=== PATIENT | female | born 1950 | race Caucasian/White ===

== ENCOUNTER 2021-01-22 11:14 | Outpatient (REF) | payer MEDICARE, OTHER, SELFPAY ==
--- NOTE | 2021-01-27 10:50 | MHC.AU.ANO ---
Adult Audiological Evaluation Date of Visit: 01/22/21 Reason for Appointment: Patient has been noticing an increase in hearing difficulty at home and with family/friends. History of ear infections as a child and history of tympanic membrane rupture. History of sinus surgery by Dr. Henderson, with cartilage graft taken from right pinna. Has hearing been tested previously?: Yes Previous Hearing Test Results: At this clinic on 10/04/2018- Borderline-normal thresholds from 250-2000 Hz, sloping to moderate high frequency sensorineural hearing loss bilaterally. Medical History: Medical History: History of bladder cancer with chemotherapy treatment approximately 5 years ago. Otoscopy: Right Ear: Clear canal Left Ear: Clear canal Tympanometry: Tympanometry performed due to: To assess integrity of the middle ear system Right Ear: Normal Middle Ear System (Type A) Left Ear: Reduced Middle Ear Compliance (Type As) Hearing Evaluation: Transducer(s) Used: Insert Earphones Method: Conventional Audiometry Stimuli Used: Pure Tones Right Ear: Description of Hearing: Borderline/Normal from 250-2000 Hz, sloping to moderately-severe sensorineural hearing loss Left Ear: Description of Hearing: Borderline/Normal from 250-1000 Hz, sloping to moderately-severe sensorineural hearing loss Speech Recognition Threshold (SRT): Method Used: Recorded Lists Stimuli Used: Spondee Words Right Ear: 25 dBHL Left Ear: 25 dBHL Word Discrimination: Method: Recorded Lists Word Lists Used: NU-6 Right Ear: 96% at 65 dBHL Left Ear: 100% at 65 dBHL Most Comfortable Level (MCL): Right Ear: 65 dBHL Left Ear: 65 dBHL Comparison: Compared to the most recent evaluation: Decrease in the left ear at 2000 Hz; otherwise, hearing is mostly stable. Recommendations: Audiological re-evaluation in one year. At patient's previous visit in 2019, she did not feel that she was ready for hearing aids. Today, she feels she may be ready, as the hearing loss has started to have more of an impact on daily life. A demo pair of Phonak Audeo Trial K77-327H (#[id number], [id number]) was placed on the patient. She did notice an improvement, but was unsure how well they would be at home. She inquired if she could take the hearing aids home for the weekend to help decide. Patient signed a loaner form and an appointment was scheduled for 01/28/2021 to return the loaners and discuss whether or not she would like to pursue hearing aids. Diagnosis: Primary Diagnosis: H90.3 Bilateral Sensorineural Hearing Loss Services Performed: Comprehensive Audiological Evaluation (CPT 79274), Tympanometry (CPT 61613) Signature: Provider: Khushboo Hardy, CCC-A
== END 2021-01-22 11:15 | disposition home or self-care (01) ==
LOC: HO.SH 11:14
PROVIDERS: Visit Provider Nurse Practitioner Family
DX: H90.3 Sensorineural hearing loss, bilateral (principal)
CPT/HCPCS: 92557; 92567

== ENCOUNTER 2021-01-28 10:52 | Outpatient (REF) | payer SELFPAY ==
--- NOTE | 2021-02-01 08:49 | MHC.AU.HFU ---
Hearing Instrument Follow-Up- Binaural Date of Visit: 01/28/21 Follow-Up Summary: Patient arrived to discuss how the hearing aid trial went at home, and to decide if she is ready for amplification. Patient reports that she had some difficulty putting them in, and they did not seem to want to go in all the way. She also could not recall how to change the battery. As a result, she had not been able to wear them much during the trial. She asked if we could address those concerns, and take them home for a few more days. Places longer, size 2 receivers on the instruments and changed to cap domes. The receivers were able to go deeper into her ears. Discussed that if she decides to pursue her own pair of hearing aids, I would likely want to try a custom cShell on the end, as her canals are narrow and have a sharp bend. Reviewed changing the battery and how to turn the hearing aids on/off. Patient will take them home for a few more days. Recommendations: Recommendations: A follow-up was scheduled for 02/04/21. Diagnosis Code(s): Primary Diagnosis: H90.3 Bilateral Sensorineural Hearing Loss Signature: Provider: Khushboo Hardy, CCC-A
== END 2021-01-28 10:53 | disposition home or self-care (01) ==
LOC: HO.HAP 10:52
PROVIDERS: Visit Provider Nurse Practitioner Family
DX: Z13.89 Encounter for screening for other disorder (principal)

== ENCOUNTER 2021-02-04 10:49 | Outpatient (REF) | payer SELFPAY ==
--- NOTE | 2021-02-05 08:47 | MHC.AU.HAS ---
Hearing Aid Evaluation Date of Visit: 02/04/21 Historical Information: Description of Hearing: Normal from 250-1000 Hz, sloping to moderately-severe sensorineural hearing loss bilaterally Summary: Patient reports that after the adjustments/review at the last appointment, she has been doing very well with the demo hearing aids. She notices a big difference when she is not wearing them. She feels she is ready for amplification. Hearing aid options were discussed. Impressions were taken for cShells, as she has very narrow canals. If patient does not like the cShells, we could go back to size 2M receivers with cap domes. Hearing Aid Prescription: Based on the individual?s shared listening needs, communication environments, dexterity, desire for connectivity, and personal preferences, the following prescription for amplification has been made: Right ear: Hand Hide Stretcher: OptiNose Model: Audeo P50-312 Battery Size: 312 Color: P1 Clay Dry Press Operator: 1M Type of Mold: cShell Left ear: Hand Hide Stretcher: Phonak Model: Audeo P50-312 Battery Size: 312 Color: P1 Clay Dry Press Operator: 1M Type of Mold: cShell Action Taken/Action Needed: Earmold Impressions Taken Patient will continue to borrow the loaner hearing aids until her fitting. She will be having surgery on her left wrist soon. She would like to wait until she has healed a bit more, in late February/early March for the fitting. The order will be sent out in mid-February. Primary Diagnosis: H90.3 Bilateral Sensorineural Hearing Loss Signature: Provider: Khushboo Hardy, IAN-A
== END 2021-02-04 10:50 | disposition home or self-care (01) ==
LOC: HO.HAP 10:49
PROVIDERS: Visit Provider Nurse Practitioner Family
DX: Z46.1 Encounter for fitting and adjustment of hearing aid (principal); H90.3 Sensorineural hearing loss, bilateral
CPT/HCPCS: 92591

== ENCOUNTER 2021-02-25 14:10 | Outpatient (REF) | payer SELFPAY | END 2021-02-25 14:11 | disposition home or self-care (01) | LOC: HO.HAP 14:10 | PROVIDERS: Visit Provider Nurse Practitioner Family | DX: Z13.89 Encounter for screening for other disorder (principal) ==

== ENCOUNTER 2021-03-23 12:59 | Outpatient (REF) | payer SELFPAY | END 2021-03-23 13:00 | disposition home or self-care (01) | LOC: HO.HAP 12:59 | PROVIDERS: Visit Provider Nurse Practitioner Family | DX: Z13.89 Encounter for screening for other disorder (principal) ==

== ENCOUNTER 2021-04-01 08:13 | Outpatient (REF) | payer OTHER, MEDICARE, SELFPAY ==
--- NOTE | ~2021-04-01 | MM_ITS ---
EXAMINATION: MM SCREENING DIGITAL BREAST TOMOSYNTHESIS, BILATERAL CLINICAL INFORMATION: Screening. Asymptomatic. The lifetime risk of breast cancer based on the Tyrer-Cuzick Model is 4%. COMPARISON: Mammography: 03/05/2020, 02/28/2019, 02/09/2018 TECHNIQUE: Digital breast tomosynthesis is performed in both the craniocaudal and mediolateral oblique views along with computer-aided detection (CAD). Synthesized 2D images are generated from the tomosynthesis. Additional right CC view is provided. FINDINGS: There are scattered areas of fibroglandular density (ACR BI-RADS breast composition Category b). There are no significant masses, abnormal calcifications, or other abnormalities. Parenchymal pattern is similar to prior studies. The axilla and skin contours are unremarkable MM/MM tomosynthesis screening BI IMPRESSION: No mammographic evidence of malignancy. ASSESSMENT: BI-RADS 1: Negative RECOMMENDATION: Routine annual mammography screening. This patient's information was entered into a reminder system with a target due date for their next mammogram.
== END 2021-04-01 08:14 | disposition home or self-care (01) ==
LOC: HO.MAMMO 08:13
PROVIDERS: Visit Provider Nurse Practitioner Family
DX: Z12.31 Encounter for screening mammogram for malignant neoplasm of breast (principal)
CPT/HCPCS: 77063; 77067

== ENCOUNTER 2021-04-01 13:33 | Outpatient (REF) | payer SELFPAY | END 2021-04-01 13:34 | disposition home or self-care (01) | LOC: HO.HAP 13:33 | PROVIDERS: Visit Provider Nurse Practitioner Family | DX: Z13.89 Encounter for screening for other disorder (principal) ==

== ENCOUNTER 2021-04-09 08:37 | Outpatient (REF) | payer SELFPAY ==
--- NOTE | 2021-04-09 11:05 | MHC.AU.HFA ---
Hearing Instrument Fitting- Adult- Binaural Date of Visit: 04/09/21 Hearing Instruments Dispensed: Right Ear: Enrollment Management Manager: GoVoluntrak Model: Kiwii Capitaleo P50-312 Serial Number: [id number] Repair Warranty: 07/04/2024 Loss and Damage Warranty: 07/04/2024 Service Plan: 07/04/2024 Battery Size: 312 Color: P1 In Process Inspector: 2S Type of Dome: Cap Dome Type of Mold: Tried cShell #[id number] (Warranty 08/05/2021), but patient preferred cap dome Type of Wax Guard: CeruShield Left Ear: Enrollment Management Manager: Phonak Model: Kiwii Capitaleo P50-312 Serial Number: [id number] Repair Warranty: 07/04/2021 Loss and Damage Warranty: 07/04/2021 Service Plan: 07/04/2021 Battery Size: 312 Color: P1 In Process Inspector: 2S Type of Dome: Cap Dome Type of Mold: Tried cShell #[id number] (Warranty 08/05/2021), but patient preferred cap dome Type of Wax Guard: CeruShield Summary of Fitting: First tried cShells. The cShells were too bulky, and did not go far enough into the ear. Patient reported they felt like they were going to fall out. Switched back to the cap domes. Replaced receivers with size 2 S, instead of M, since they are narrower. This allowed the receivers to go deeper into the narrow canals. Feedback accounting office manager run. Verifit performed and levels adjusted to better reach targets. Target gain is at 100%. Patient was pleased with the sound of the instruments. Hearing aid care and maintenance were discussed and demonstrated. Patient does not want the hearing aids paired to her phone at this time. Recommendations: A hearing instrument follow-up was scheduled. Please call our clinic with any questions or concerns. Diagnosis Code(s): Primary Diagnosis: H90.3 Bilateral Sensorineural Hearing Loss Signature: Provider: Khushboo Hardy, IAN-A
== END 2021-04-09 08:38 | disposition home or self-care (01) ==
LOC: HO.HAP 08:37
PROVIDERS: Visit Provider Nurse Practitioner Family
DX: Z46.1 Encounter for fitting and adjustment of hearing aid (principal); H90.3 Sensorineural hearing loss, bilateral
CPT/HCPCS: V5261

== ENCOUNTER 2021-04-26 08:17 | Outpatient (REF) | payer SELFPAY ==
--- NOTE | 2021-04-26 13:48 | MHC.AU.HFU ---
Hearing Instrument Follow-Up- Binaural Date of Visit: 04/26/21 Right Ear: Assistant Corporation Counsel: Phonak Model: Audeo P50-312 Serial Number: [id number] Repair Warranty: 07/04/2024 Loss and Damage Warranty: 07/04/2024 Service Plan: 07/04/2024 Battery Size: 312 Color: P1 Venue Attendant: 2S Type of Dome: Cap Dome Type of Mold: Tried cShell #[id number] (Warranty 08/05/2021), but patient preferred cap dome Type of Wax Guard: CeruShield Dispensed By: [facility] Date of Fittin04/09/2021 Left Ear: Assistant Corporation Counsel: Phonak Model: Audeo P50-312 Serial Number: [id number] Repair Warranty: 07/04/2021 Loss and Damage Warranty: 07/04/2021 Service Plan: 07/04/2021 Battery Size: 312 Color: P1 Venue Attendant: 2S Type of Dome: Cap Dome Type of Mold: Tried cShell #[id number] (Warranty 08/05/2021), but patient preferred cap dome Type of Wax Guard: CeruShield Dispensed By: [facility] Date of Fittin04/09/2021 Follow-Up Summary: Patient arrived for hearing aid follow-up. She reports that she was unable to change the wax guard in the left grain receiver recently. Upon inspection, the wax guard was out of alignment, and could not be picked up with the CeruShield disk. Used a tool to remove the wax guard and replaced with a new one. Patient reports that when she takes the hearing aids out at the end of the day, she does notice a difference; however, when she is wearing them throughout the day she does not feel they are loud enough. Overall gain raised to 110%. High frequency gain raised an additional 2 steps. Patient was pleased with the changes. Recommendations: Hearing instrument follow-up or maintenance as needed. Please contact our clinic with any questions or concerns. Diagnosis Code(s): Primary Diagnosis: H90.3 Bilateral Sensorineural Hearing Loss Signature: Provider: Khushboo Hardy, [facility]
== END 2021-04-26 08:18 | disposition home or self-care (01) ==
LOC: HO.HAP 08:17
PROVIDERS: Visit Provider Nurse Practitioner Family
DX: Z13.89 Encounter for screening for other disorder (principal)

== ENCOUNTER 2021-10-13 08:20 | Outpatient (REF) | payer SELFPAY | END 2021-10-13 08:21 | disposition home or self-care (01) | LOC: HO.HAP 08:20 | PROVIDERS: Visit Provider Nurse Practitioner Family | DX: Z13.89 Encounter for screening for other disorder (principal) ==

== ENCOUNTER 2021-12-01 16:30 | Outpatient (REF) | payer SELFPAY | END 2021-12-01 16:31 | disposition home or self-care (01) | LOC: HO.HAP 16:30 | PROVIDERS: Visit Provider Nurse Practitioner Family | DX: Z13.89 Encounter for screening for other disorder (principal) ==

== ENCOUNTER 2021-12-03 08:12 | Outpatient (REF) | payer SELFPAY | END 2021-12-03 08:13 | disposition home or self-care (01) | LOC: HO.HAP 08:12 | PROVIDERS: Visit Provider Nurse Practitioner Family | DX: Z13.89 Encounter for screening for other disorder (principal) ==

== ENCOUNTER 2022-04-07 08:06 | Outpatient (REF) | payer OTHER, SELFPAY ==
--- NOTE | ~2022-04-07 | MM_ITS ---
EXAMINATION: MM SCREENING DIGITAL BREAST TOMOSYNTHESIS, BILATERAL CLINICAL INFORMATION: Screening. Asymptomatic. The lifetime risk of breast cancer based on the Tyrer-Cuzick Model is 5%. COMPARISON: Mammography: 04/01/2021, 03/05/2020, 02/28/2019 TECHNIQUE: Digital breast tomosynthesis is performed in both the craniocaudal and mediolateral oblique views along with computer-aided detection (CAD). Synthesized 2D images are generated from the tomosynthesis. Additional left CC view is provided. FINDINGS: There are scattered areas of fibroglandular density (ACR BI-RADS breast composition Category b). There are no significant masses, abnormal calcifications, or other abnormalities. No developing density or architectural abnormality or no significant changes. MM/MM tomosynthesis screening BI IMPRESSION: No mammographic evidence of malignancy. ASSESSMENT: BI-RADS 1: Negative RECOMMENDATION: Routine annual mammography screening. This patient's information was entered into a reminder system with a target due date for their next mammogram.
== END 2022-04-07 08:07 | disposition home or self-care (01) ==
LOC: HO.MAMMO 08:06
PROVIDERS: PCP Nurse Practitioner Family; Visit Provider Nurse Practitioner Family
DX: Z12.31 Encounter for screening mammogram for malignant neoplasm of breast (principal)
CPT/HCPCS: 77063; 77067

== ENCOUNTER 2022-05-06 08:08 | Outpatient (REF) | payer OTHER, SELFPAY ==
[2022-05-06 10:26] LABS: MANUAL DIFF FLAG NO
[2022-05-06 10:49] LABS: Basophils Absolute Auto 0.1 X10*3/uL (0.0-0.2); Basophils Percent Auto 1.5 % (0-2); Eosinophils Absolute Auto 0.3 X10*3/uL (0.0-0.4); Hematocrit 30.7 % (37.0-47.0); Hemoglobin 9.3 g/dl (12.0-16.0); Lymphocytes Absolute Auto 1.4 X10*3/uL (1.2-4.9); Lymphocytes Percent Auto 34.7 % (20-40); Mean Corpuscular HGB Conc 30.3 g/dl (31.0-35.0); Mean Corpuscular Hemoglobin 26.6 pg (27.0-33.0); Monocytes Absolute Auto 0.4 X10*3/uL (0.1-1.2); Monocytes Percent Auto 9.8 % (2-11); Neutrophils Absolute Auto 1.8 x10*3/uL (2.0-8.3); Platelet Count 268 X10*3/uL (160-400); Red Blood Count 3.49 X10*6/uL (4.20-5.50); Red Cell Distribution Width 14.8 % (11.0-16.0); White Blood Count 3.9 X10*3/uL (4.8-10.8)
[2022-05-06 11:12] LABS: Alanine Aminotransferase 21 U/L (0-31); Albumin Level 3.9 g/dL (3.5-5.0); Alkaline Phosphatase 57 U/L (39-117); Anion Gap 13 (12-20); Aspartate Amino Transferase 22 U/L (5-31); Bilirubin Total 0.4 mg/dL (0.0-1.0); Blood Urea Nitrogen 17 mg/dL (9-16); Calcium 8.7 mg/dL (8.4-10.2); Carbon Dioxide 27 mmol/L (22-29); Chloride 106 mmol/L (96-108); Cholesterol 183 mg/dL; Estimated Glomerular Filt Rate 44; Glucose Fasting 89 mg/dL (60-99); HDL Cholesterol 101 mg/dL; Iron 43 mcg/dL (30-160); LDL Cholesterol Calculated 69 mg/dl; Magnesium 2.2 mg/dL (1.6-2.6); Percent Iron Saturation 9 % (15-50); Potassium 4.9 mmol/L (3.3-5.1); Sodium 141 mmol/L (135-145); Total Iron Binding Capacity 455 mcg/dL (228-428); Total Protein 6.4 g/dL (6.5-8.0); Triglycerides 65 mg/dL; Unsaturated Iron Binding 412 ug/dL
[2022-05-06 11:26] LABS: Thyroid Stimulating Hormone 3.54 uIU/mL (0.32-4.0)
[2022-05-06 11:41] LABS: Vitamin B12 316 pg/mL (200-900)
== END 2022-05-06 08:09 | disposition home or self-care (01) ==
LOC: HO.10HDL 08:08
PROVIDERS: Visit Provider Nurse Practitioner Family
DX: R53.83 Other fatigue (principal); D64.9 Anemia, unspecified; I10 Essential (primary) hypertension
CPT/HCPCS: 36415; 80053; 80061; 82607; 83540; 83735; 84443; 85025

== ENCOUNTER 2022-06-30 15:56 | Outpatient (REF) | payer OTHER, SELFPAY ==
[2022-06-30 16:11] LABS: MANUAL DIFF FLAG NO
[2022-06-30 16:25] LABS: Basophils Absolute Auto 0.1 X10*3/uL (0.0-0.2); Basophils Percent Auto 1.3 % (0-2); Eosinophils Absolute Auto 0.2 X10*3/uL (0.0-0.4); Eosinophils Percent Auto 4.7 % (0-4); Hematocrit 30.6 % (37.0-47.0); Hemoglobin 9.7 g/dl (12.0-16.0); Imm Gran Abs Auto 0.01 X10*3/uL (0.00-0.03); Imm Gran Pct Auto 0.3 % (0.0-0.4); Lymphocytes Absolute Auto 1.4 X10*3/uL (1.2-4.9); Lymphocytes Percent Auto 36.5 % (20-40); Mean Corpuscular HGB Conc 31.7 g/dl (31.0-35.0); Mean Corpuscular Hemoglobin 27.3 pg (27.0-33.0); Mean Corpuscular Volume 86.2 fL (80.0-98.0); Mean Platelet Volume 10.1 fL (9.4-12.3); Monocytes Absolute Auto 0.4 X10*3/uL (0.1-1.2); Monocytes Percent Auto 9.1 % (2-11); Neutrophils Absolute Auto 1.9 x10*3/uL (2.0-8.3); Neutrophils Percent Auto 48.1 % (45-73); Platelet Count 274 X10*3/uL (160-400); Red Blood Count 3.55 X10*6/uL (4.20-5.50); Red Cell Distribution Width 14.7 % (11.0-16.0); White Blood Count 3.9 X10*3/uL (4.8-10.8)
[2022-06-30 16:40] LABS: Iron 75 mcg/dL (30-160); Percent Iron Saturation 15 % (15-50); Total Iron Binding Capacity 502 mcg/dL (228-428); Unsaturated Iron Binding 427 ug/dL
== END 2022-06-30 15:57 | disposition home or self-care (01) ==
LOC: HO.LAB 15:56
PROVIDERS: Visit Provider Nurse Practitioner Family
DX: D50.9 Iron deficiency anemia, unspecified (principal)
CPT/HCPCS: 36415; 83540; 85025

== ENCOUNTER 2022-08-19 11:07 | Outpatient (REF) | payer SELFPAY | END 2022-08-19 11:08 | disposition home or self-care (01) | LOC: HO.HAP 11:07 | PROVIDERS: Visit Provider Nurse Practitioner Family | DX: Z13.89 Encounter for screening for other disorder (principal) ==

== ENCOUNTER 2022-11-15 16:29 | Outpatient (REF) | payer OTHER, MEDICARE, SELFPAY ==
--- NOTE | ~2022-11-15 | US_ITS ---
EXAMINATION: US CHEST CLINICAL INFORMATION: Soft tissue mass upper back. History of bladder cancer. COMPARISON: None available. TECHNIQUE: Targeted ultrasound evaluation to soft tissue mass. FINDINGS: In the region of the palpable lump there is a circumscribed slightly heterogeneous lesion measuring approximately 2.5 x 2.2 x 0.4 cm in size with some mild tenderness to compression. This overlies the spine. This lies subcutaneously. No internal vascularity is appreciated. The lesion is wider than it is tall. There is some mild distal sound enhancement. This structure may represent a lipoma and does not have suspicious appearance. US/US chest IMPRESSION: Palpable upper back lesion is seen to overlie the spinal process and has the appearance of possible lipoma on the provided imaging.
== END 2022-11-15 16:30 | disposition home or self-care (01) ==
LOC: HO.US 16:29
PROVIDERS: PCP Nurse Practitioner Family; Visit Provider Nurse Practitioner Family
DX: M79.89 Other specified soft tissue disorders (principal); Z85.51 Personal history of malignant neoplasm of bladder
CPT/HCPCS: 76604

== ENCOUNTER 2022-12-14 12:38 | Outpatient (REF) | payer OTHER, SELFPAY | END 2022-12-14 12:39 | disposition home or self-care (01) | LOC: HO.SH 12:38 | PROVIDERS: Visit Provider Nurse Practitioner Family | DX: H90.3 Sensorineural hearing loss, bilateral (principal) | CPT/HCPCS: 92557; 92567 ==

== ENCOUNTER 2022-12-19 09:13 | Outpatient (REF) | payer OTHER, SELFPAY | END 2022-12-19 09:14 | disposition home or self-care (01) | LOC: HO.LNP 09:13 | PROVIDERS: PCP Nurse Practitioner Family; Visit Provider Surgery | DX: D17.1 Benign lipomatous neoplasm of skin and subcutaneous tissue of trunk (principal) | CPT/HCPCS: 11406; 88304 ==

== ENCOUNTER → 2022-12-27 13:35 | Outpatient (BNVA) | payer OTHER, SELFPAY | PROVIDERS: PCP Nurse Practitioner Family; Visit Provider Surgery | DX: Z13.89 Encounter for screening for other disorder (principal) ==

== ENCOUNTER 2023-04-17 08:50 | Outpatient (REF) | payer OTHER, SELFPAY ==
--- NOTE | ~2023-04-17 | MM_ITS ---
EXAMINATION: MM SCREENING DIGITAL BREAST TOMOSYNTHESIS, BILATERAL CLINICAL INFORMATION: Screening. Asymptomatic. The lifetime risk of breast cancer based on the Tyrer-Cuzick Model is 4.6%. COMPARISON: Mammography: 04/07/2022, and dating back to 2012. TECHNIQUE: Digital breast tomosynthesis is performed in both the craniocaudal and mediolateral oblique views along with computer-aided detection (CAD). Synthesized 2D images are generated from the tomosynthesis. FINDINGS: There are scattered areas of fibroglandular density (ACR BI-RADS breast composition Category b). There are no suspicious masses, suspicious grouped calcifications, or areas of architectural distortion. The parenchymal pattern is stable from prior exams. MM/MM tomosynthesis screening BI IMPRESSION: No mammographic evidence of malignancy. ASSESSMENT: BI-RADS BI-RADS 1 - Negative RECOMMENDATION: Routine annual mammography screening. 1 year F/U This examination should not preclude the clinical evaluation of a suspicious palpable abnormality. This patient's information was entered into a reminder system with a target due date for their next mammogram.
== END 2023-04-17 08:51 | disposition home or self-care (01) ==
LOC: HO.MAMMO 08:50
PROVIDERS: PCP Nurse Practitioner Family; Visit Provider Nurse Practitioner Family
DX: Z12.31 Encounter for screening mammogram for malignant neoplasm of breast (principal)
CPT/HCPCS: 77063; 77067

== ENCOUNTER → 2023-04-17 09:45 | Outpatient (BNV) | payer OTHER, SELFPAY | PROVIDERS: PCP Nurse Practitioner Family; Visit Provider Radiology Diagnostic Radiology | DX: Z12.31 Encounter for screening mammogram for malignant neoplasm of breast (principal) | CPT/HCPCS: 77063; 77067 ==

== ENCOUNTER 2023-06-16 15:08 | Outpatient (REF) | payer SELFPAY ==
--- NOTE | 2023-06-20 08:58 | MHC.AU.HA3 ---
Hearing Instrument Follow-Up- Binaural Date of Visit: 06/16/23 Right Ear: Make, Model, Color, Serial Number: Vanessa Florian P50-312 SN: [id number] Color: Sand Beige Vat Operator Repair Warranty: 07/04/2024 Vat Operator Loss and Damage Warranty: 07/04/2024 [facility] Service Plan: 07/04/2024 Battery Size: 312 Landscape Crew Leader/Slim Tube: 2S Earmold/Dome/CShell/SlimTip:Tried cShell #[id number] (Warranty 08/05/2021), but patient preferred cap dome Type of Wax Guard: CeruShield Dispensed By: [facility] Date of Fittin04/09/2021 Left Ear: Make, Model, Color, Serial Number: Vanessa Florian [id number] SN: [id number] Color: Sand Beige Vat Operator Repair Warranty: 07/04/2024 Vat Operator Loss and Damage Warranty: 07/04/2024 [facility] Service Plan: 07/04/2024 Battery Size: 312 Landscape Crew Leader/Slim Tube: 2S Earmold/Dome/CShell/SlimTip: Tried cShell #[id number] (Warranty 08/05/2021), but patient preferred cap dome Type of Wax Guard: CeruShield Dispensed By: [facility] Date of Fittin04/09/2021 Follow-Up Summary: Oksana walked-in - Did not have appointment scheduled. She needed assistance changing her wax guards. Reinstructed and barry'ed how to change CeruSheild. Oksana was able to successfully change the wax guard herself in office. Recommendations: Hearing instrument follow-up or maintenance as needed. Please contact our clinic with any questions or concerns. Diagnosis Code(s): Primary Diagnosis: H90.3 Bilateral Sensorineural Hearing Loss Signature: Provider: Dionte Millan, [facility]
== END 2023-06-16 15:09 | disposition home or self-care (01) ==
LOC: HO.HAP 15:08
PROVIDERS: Visit Provider Nurse Practitioner Family
DX: Z13.89 Encounter for screening for other disorder (principal)

== ENCOUNTER 2024-04-09 10:09 | Outpatient (REF) | payer SELFPAY | END 2024-04-09 10:10 | disposition home or self-care (01) | LOC: HO.HAP 10:09 | PROVIDERS: Visit Provider Nurse Practitioner Family | DX: Z46.1 Encounter for fitting and adjustment of hearing aid (principal); H90.3 Sensorineural hearing loss, bilateral | CPT/HCPCS: V5267 ==

== ENCOUNTER 2024-04-19 10:40 | Outpatient (REF) | payer OTHER, SELFPAY ==
--- NOTE | ~2024-04-19 | MM_ITS ---
EXAMINATION: MM SCREENING DIGITAL BREAST TOMOSYNTHESIS, BILATERAL CLINICAL INFORMATION: Screening. Asymptomatic. COMPARISON: Mammography: This study is compared with prior exams dating back to 2019. TECHNIQUE: Digital breast tomosynthesis is performed in both the craniocaudal and mediolateral oblique views along with computer-aided detection (CAD). Direct 2-D images of each breast in the standard screening projections are also obtained. FINDINGS: There are scattered areas of fibroglandular density (ACR BI-RADS breast composition Category b). There are no significant masses, abnormal calcifications, or other abnormalities. MM/MM tomosynthesis screening BI IMPRESSION: No mammographic evidence of malignancy. ASSESSMENT: BI-RADS BI-RADS 1 - Negative RECOMMENDATION: Routine annual mammography screening. 1 year F/U This examination should not preclude the clinical evaluation of a suspicious palpable abnormality. This patient's information was entered into a reminder system with a target due date for their next mammogram. Electronically signed by: Chantelle Mathew MD 05/16/2024 12:17 PM EDT
--- NOTE | ~2024-04-19 | MM_ITS ---
EXAMINATION: BONE DENSITOMETRY CLINICAL INDICATION: Postmenopausal. COMPARISON: This is the patient's baseline examination. TECHNIQUE: Using a [employer] DXA System (software version: 13.1) manufactured by [employer], dual-energy x-ray absorptiometry was performed of the lumbar spine and right hip. The images are of good technical quality. Summary results are attached. FINDINGS: RIGHT FEMUR, NECK: BMD 0.694 g/cm2, Z-score -0.5, T-score -2.5, osteoporosis. RIGHT FEMUR, TOTAL: BMD 0.673 g/cm2, Z-score -0.8, T-score -2.7, osteoporosis. AP SPINE L2-L4 (excluding L1): The data of L1-L4 has been changed to exclude the L1 vertebral body, because degenerative sclerosis at this level may cause overestimation of lumbar spine density. BMD 0.765 g/cm2, Z-score -1.7, T-score -3.6, osteoporosis. IDENTIFIED RISK FACTORS: Menopause, hysterectomy, history of fracture (adult), height loss, low calcium intake, kidney disease, secondary osteoporosis (partial gastrectomy). HISTORY OF FRACTURE: Hip. Other. MEDICATIONS: Calcium. MM/XR DEXA axial skeleton IMPRESSION: 1. DIAGNOSIS: Severe osteoporosis based on the lowest T-score value of -3.6 in the lumbar spine and history of fracture applying World Health Organization criteria. 2. 10-YEAR FRACTURE RISK PREDICTION, FRAX: According to the guidelines, FRAX calculation should only be performed on patients in the osteopenia bone density category. Therefore, FRAX was not performed on this patient. 3. Treatment Recommendations: NOF guidelines recommend consideration for treatment in postmenopausal women and men age 50 and older presenting with the following: -A hip or vertebral (clinical or morphometric) fracture. -T-score less than or equal to -2.5 at the femoral neck or spine after appropriate evaluation to exclude secondary causes. -Low bone mass at the hip or spine and a 10-year fracture probability by FRAX of greater than or equal to 3% for hip fracture or greater than or equal to 20% for major osteoporotic fracture based on the [place] adapted WHO algorithm. 4. Other Recommendations: All treatment decisions require clinical judgment and consideration of individual patient factors, including patient preferences, comorbidities, previous drug use, risk factors not captured in the FRAX model (e.g. frailty, falls, vitamin D deficiency, increased bone turnover, interval significant decline in bone density) and possible under or overestimation of fracture risk by FRAX. Additional medical evaluation for secondary cause of low bone mineral density may be appropriate. FUTURE SCAN RECOMMENDATION: People with diagnosed cases of osteoporosis or at high risk for fracture should have regular bone mineral density tests. For patients eligible for Medicare, routine testing is allowed once every 2 years. The testing frequency can be increased to one year for patients who have rapidly progressing disease, those who are receiving or discontinuing medical therapy to restore bone mass, or have additional risk factors.
== END 2024-04-19 10:41 | disposition home or self-care (01) ==
LOC: HO.MAMMO 10:40
PROVIDERS: PCP Internal Medicine; Visit Provider Internal Medicine
DX: Z12.31 Encounter for screening mammogram for malignant neoplasm of breast (principal); Z13.820 Encounter for screening for osteoporosis; Z78.0 Asymptomatic menopausal state
CPT/HCPCS: 77063; 77067; 77080

== ENCOUNTER → 2024-04-19 10:45 | Outpatient (BNV) | payer OTHER, SELFPAY | PROVIDERS: PCP Internal Medicine; Visit Provider Radiology Diagnostic Radiology | DX: Z12.31 Encounter for screening mammogram for malignant neoplasm of breast (principal) | CPT/HCPCS: 77063; 77067 ==

== ENCOUNTER 2024-05-10 09:32 | Outpatient (REF) | payer OTHER, SELFPAY | END 2024-05-10 09:33 | disposition home or self-care (01) | LOC: HO.SH 09:32 | PROVIDERS: Visit Provider Internal Medicine | DX: Z01.118 Encounter for examination of ears and hearing with other abnormal findings (principal); H90.3 Sensorineural hearing loss, bilateral | CPT/HCPCS: 92552 ==

== ENCOUNTER 2024-06-03 10:50 | Outpatient (REF) | payer OTHER, SELFPAY ==
--- NOTE | ~2024-06-03 | XR_ITS ---
EXAMINATION: XR CERVICAL SPINE CLINICAL INFORMATION: Cervical pain; question degenerative disc disease. COMPARISON: None available. TECHNIQUE: AP and lateral views of the cervical spine were obtained. FINDINGS: Vertebral body heights are normal. At C4-5, there is a 3 mm anterolisthesis. At C5-6, there is moderately severe degenerative disc disease, with endplate arthropathy. The remaining disc spaces are well-maintained. No acute fracture or spondylolisthesis is seen. The posterior elements are intact. The dens is intact. No prevertebral soft tissue swelling is seen. XR/XR cervical spine 2V IMPRESSION: 1. There is moderately severe degenerative disc disease at C5-6, and mild degenerative disc disease is seen at C4-5. 2. No acute fracture or spondylolisthesis is seen Electronically signed by: Jose De Jesus Woodward MD 06/03/2024 10:18 PM EDT
== END 2024-06-03 10:51 | disposition home or self-care (01) ==
LOC: HO.HMGCX 10:50
PROVIDERS: PCP Internal Medicine; Visit Provider Internal Medicine
DX: M54.2 Cervicalgia (principal)
CPT/HCPCS: 72040

== ENCOUNTER 2025-01-14 11:32 | Outpatient (AMB) | payer OTHER, SELFPAY ==
--- NOTE | 2025-01-14 11:33 | A.OFFPC_ITS ---
Vital Signs 01/14/25 11:54 Height 5 ft 1 in Weight 139 lb BMI 26.3 BP 122/70 Blood Pressure Location Rt brachial Position Sitting Respiration 14 Pulse 96 Pulse Source Pulse Oximeter Temp 98.2 F Temp Source Temporal Artery Scan Pulse Oximetry (%) 96 Oxygen Delivery Method Room Air Intake Visit Reasons: MANAGER SPEECH -EST CARE/MEDICATIONS Intake Note: Oksana presents in the office today to establish care. Allergies clindamycin [CLINDAMYCIN] Allergy (Severe, Verified 01/14/25 11:39) PURPURA Seasonal Allergies Allergy (Intermediate, Verified 01/14/25 11:39) Congestion Clindamycin HCl Allergy (Unknown, Uncoded 12/19/22 09:22) purpra cilantro Adverse Reaction (Unknown, Uncoded 12/19/22 09:22) Hives Clindamycin Adverse Reaction (Unknown, Uncoded 12/19/22 09:22) purpra Tobacco use date assessed: 01/14/25 Fall risk assessment: 2 + Falls in past year Last assessed Fall Risk: 01/14/25 Dental Screening Dental Screen Date: 01/14/25 Did you have a dental visit in the last 12 months?: Yes Did you have a dental problem in the last 6 months where you did not have access to dental care?: No Was dental information given to patient?: Patient has dentist HPI HPI Comments History of Present Illness Details The patient is a 74 year old female with a past medical history of osteoporosis, anemia, cervical DDD, ADD, anxiety, GERD presenting to establish care. Previously following with Dr Calero. BH: Anxiety/ADD. On lexapro 20mg daily, lorazepam 1mg twice daily, adderall 20mg twice daily. Son recently diagnosed with ALS. Lots of anxiety, depression and family stress. Cervical DDD: Has been on baclofen, gabapentin. Diclofenac has been more helpful. Seeing [facility] for right knee and will be following for the neck Sees Junie quesada-Dr Mcgregor Follows with Dr Vega locally. Mammo 04/2024 DXA 04/2024-severe osteoporosis. Will see Dr Kim Gillis-Rob Colonoscopy UTD ROS see HPI PHYSICAL EXAM: GENERAL: Alert and oriented x 3. NAD EYES: EOMI. Anicteric. HENT: Moist mucous membranes. No scleral icterus. No cervical lymphadenopathy. LUNGS: Clear to auscultation bilaterally. CARDIOVASCULAR: Regular rate and rhythm. No murmur. No JVD. ABDOMEN: Soft, non-tender +bs EXTREMITIES: No edema. Non-tender. SKIN: No rashes or lesions. Warm. NEUROLOGIC: No focal neurological deficits. CN II-XII grossly intact PSYCHIATRIC: Cooperative. Appropriate mood and affect [facility] Medical History (Updated 01/19/25 @ 14:58 by Barbara Child MD) FH: total knee replacement Surgical History (Updated 12/23/22 @ 13:50 by MEENA Otoole) Lipoma of back (12/19/22) H/O gastric bypass History of appendectomy History of urostomy Family History (Updated 01/14/25 @ 11:50 by Mery Renteria MA) Daughter FHx: mental illness Son Substance abuse Social History (Updated 01/14/25 @ 11:50 by Mery Renteria MA) Housing: Apartment Alcohol intake: current Alcohol intake frequency: a few times a week Alcohol type: wine Patient Tobacco Use Status: Former Tobacco user e-Cigarette/Vaping Use: Never Used Second Hand Smoke Exposure: No service: No Current occupational status: employed and retired Current occupational exposures/hazards: No Cognitive needs: No Hearing needs: No Vision needs: No Questionnaire PHQ-9 Over the last 2 weeks, how often have you been bothered by any of the following problems? 1. Little interest or pleasure in doing things: not at all 2. Feeling down, depressed, or hopeless: several days 3. Trouble falling or staying asleep, or sleeping too much: not at all 4. Feeling tired or having little energy: more than half the days 5. Poor appetite or overeating: not at all 6. Feeling bad about yourself - or that you are a failure or have let yourself or your family down: not at all 7. Trouble concentrating on things, such as reading the newspaper or watching television: several days 8. Moving or speaking so slowly that other people could have noticed. Or the opposite - being so fidgety or restless that you have been moving around a lot more than usual: not at all 9. Thoughts that you would be better off or of hurting yourself in some way: not at all Total score: 4 Depression Screening Interpretation: Negative Depression Screening Done: Yes 87323 - PHQ-9 Billing: Patient declined-do not bill Source: Developed by Drs. Vern Vázquez, Tyra Chaudhary, Jatin Medina and colleagues, with an educational miles from [employer]. Thrive Questionnaire Date Thrive assessed: 01/14/25 I am a: Patient What is your living situation today?: I have a steady place to live Within the past 12 months, did the food you bought not last and you didn't have the money to get more?: Never true Within the past 12 months, did you worry whether your food would run out before you got money to buy more?: Never true Do you have trouble paying for medicines?: No Do you have trouble getting transportation to medical appointments?: No Do you have trouble paying your heating and electricity bill?: No Do you have trouble taking care of your child, family member or friend?: No Do you have trouble with day-to-day activities such as bathing, preparing meals, shopping, managing finances, etc.?: No Are you currently unemployed and looking for a job?: No Are you interested in more education?: No Please select the resources that you would like help with: None Currently or been in a relationship where the following occur: No concerns reported THRIVE Score: 0 AUDIT C Alcohol Use Questionnaire (AUDIT-C) 1. How often do you have a drink containing alcohol?: 4 or more times a week 2. How many drinks containing alcohol do you have on a typical day when you are drinking?: 1 or 2 3. How often do you have six or more drinks on one occasion?: Never Total Score: 4 Score Reviewed/Action Taken: No BRANDON-7 AMB Questionnaire BRANDON-7 Date BRANDON - 7 assessed: 01/14/25 Feeling nervous, anxious, or on edge: 2 = More than half the days Not being able to stop or control worryin = More than half the days Worrying too much about different things: 2 = More than half the days Trouble relaxin = More than half the days Being so restless that it is hard to sit still: 2 = More than half the days Becoming easily annoyed or irritable: 1 = Several days Feeling afraid as if something awful might happen: 1 = Several days Total BRANDON-7 score (0-4 normal; 5-9 mild; 10-14 moderate; 15-21 severe): 12 Source: Developed by Drs. Vern Vázquez, Tyra Chaudhary, Jatin Medina and colleagues, with an educational miles from [employer]. BRANDON-7 Assessment Billing BRANDON-7 Assessment Tool: BRANDON-7 Assessment 01653 Physical exam (Primary Care) Vital Signs: Last Vital Signs Temp 98.2 F 01/14/25 11:54 Pulse 96 01/14/25 11:54 Resp 14 01/14/25 11:54 BP 122/70 01/14/25 11:54 Pulse Ox 96 01/14/25 11:54 Oxygen Delivery Method Room Air 01/14/25 11:54 BMI result Body Mass Index 26.3 Tobacco/Smoking Status: Tobacco use Status Tobacco use date assessed 01/14/25 01/14/25 11:35 Patient Tobacco Use Status Former Tobacco user 01/14/25 11:53 e-Cigarette/Vaping Use Never Used 01/14/25 11:53 PHQ-9: PHQ-9 Score PHQ-9: Total score 4 01/14/25 13:03 Depression Screening Interpretation: Negative Thrive Assessment: Date of Thrive Assessment Date Thrive assessed 01/14/25 01/14/25 11:53 Currently or been in a relationship where the following occur: No concerns reported Coding Level of Care Code New Pt Level 4 (55436) Complex EM visit Add On G2211 Diagnoses Attention deficit R41.840 Anxiety F41.9 Polyarthralgia M25.50 Additional Codes BRANDON-7 Assessment Billing - BRANDON-7 Assessment Tool: BRANDON-7 Assessment 35972 ([id number]) Assessment & Plan Assessment & Plan (1) Attention deficit: Code(s): R41.840 - Attention and concentration deficit Category: Medical (2) Anxiety: Code(s): F41.9 - Anxiety disorder, unspecified Category: Medical (3) Polyarthralgia: Code(s): M25.50 - Pain in unspecified joint Category: Medical Plan 74 yo to establish care Past medical, surgical, social reviewed Elbow, forearm pain-xr ordered.recent fall Anxiety-high levels in midst of child health issues Orders: Orders Complete Blood Count Auto Diff 01/14/25 D64.9 - Anemia, unspecified, F43.9 - Reaction to severe stress, unspecified, M17.10 - Unilateral primary osteoarthritis, unspecified knee, Z13.228 - Encounter for screening for other metabolic disorders Comprehensive Met. Panel 01/14/25 D64.9 - Anemia, unspecified, F43.9 - Reaction to severe stress, unspecified, M17.10 - Unilateral primary osteoarthritis, unspecified knee, Z13.228 - Encounter for screening for other metabolic disorders Lipid Panel 01/14/25 D64.9 - Anemia, unspecified, F43.9 - Reaction to severe stress, unspecified, M17.10 - Unilateral primary osteoarthritis, unspecified knee, Z13.228 - Encounter for screening for other metabolic disorders XR elbow LT min 3V 01/16/25 M25.522 - Pain in left elbow, W19.XXXA - Unspecified fall, initial encounter IRON PROFILE 01/14/25 D64.9 - Anemia, unspecified, F43.9 - Reaction to severe stress, unspecified, M17.10 - Unilateral primary osteoarthritis, unspecified knee, Z13.228 - Encounter for screening for other metabolic disorders Vitamin B12 and Folate 01/14/25 D64.9 - Anemia, unspecified, F43.9 - Reaction to severe stress, unspecified, M17.10 - Unilateral primary osteoarthritis, unspecified knee, Z13.228 - Encounter for screening for other metabolic disorders TSH reflex Free T4 01/14/25 D64.9 - Anemia, unspecified, F43.9 - Reaction to severe stress, unspecified, M17.10 - Unilateral primary osteoarthritis, unspecified knee, Z13.228 - Encounter for screening for other metabolic disorders Medications: New lorazepam 1 mg PO BID PRN 60 tabs 0RF anxiety diclofenac sodium 75 mg PO BID 180 tabs 0RF Changed From dextroamphetamine-amphetamine 20 mg ER 1 cap PO BID 0RF R41.840 - Atten tion and concentration deficit To dextroamphetamine-amphetamine 20 mg ER 1 cap PO BID 120 caps 0RF 60 days R41.840 - Attention and concentration deficit
[2025-01-14 11:54] VITALS: BP 122/70; PULSE 96; RESP 14; TEMP 36.8; O2SAT 96; BMI 26.3
--- OUTSIDE RECORDS SUMMARY | 2025-01-14 13:15 | XMS_ITS | Clinical Summary ---
Author Organization [facility] Address [address] [place] [address] Care Team Providers Care Hole Digger Name Role Phone Unavailable Primary Care Provider Unavailabl e Allergies Active Allergy Reactions Criticality Noted Date Comments Clindamycin Hives High 04/08/2016 Purpura Medications Medication Sig Dispensed Refills Start Date End Date Status trimethoprim (TRIMPEX) 100 MG tablet TK 1 T PO D FOR RECURRENT UTI 0 11/23/2019 Active acetic acid 0.25 % irrigationIndication s:Malignant neoplasm of urinary bladder, unspecified site (HCC) IRRIGATE STOMA WITH 60ML TWICE DAILY AND NEEDED DIRECTED IRRIGATION 30 DAYS 4000 mL 6 09/17/2020 Active [facility] Magnesium Oxide 250 MG TABS TAKE 2 TABLETS DAILY 90 tablet 3 04/05/2021 Active acetaminophen (TYLENOL) 325 MG tablet 0 02/10/2021 Active docusate sodium (COLACE) 100 MG capsule as needed. 0 05/01/2022 Active betamethasone, augmented, (DIPROLENE) 0.05 % cream APPLY EXTERNALLY TO THE AFFECTED AREA DAILY NEEDED DIRECTED 30 g 1 11/09/2022 Active LORazepam (ATIVAN) 1 MG tabletIndications:An xiety Take 1 tablet (1 mg total) by mouth 2 (two) times a day as needed. 1 by mouth twice 60 tablet 0 05/01/2023 Active hydrocortisone (WESTCORT) 0.2 % creamIndications:Ecz dayami, unspecified type APPLY TO AFFECTED AREA TWICE A DAY 45 g 0 05/08/2023 Active furosemide (LASIX) 40 MG tabletIndications:Le g swelling TAKE 1 TABLET BY MOUTH TWICE A DAY 180 tablet 0 05/19/2023 Active albuterol 108 (90 Base) MCG/ACT inhalerIndications:S OB (shortness of breath) on exertion Inhale 2 puffs into the lungs every 6 (six) hours as needed for wheezing. 18 g 3 06/06/2023 Active escitalopram (LEXAPRO) tablet 10 mgIndications:Anxiet y state Take 1 tablet (10 mg total) by mouth daily. 90 tablet 1 06/06/2023 Active fluticasone (FLONASE) 50 MCG/ACT nasal spray spray/apply 1 spray in each nostril daily. 16 g 12 06/06/2023 Active baclofen (LIORESAL) 5 MG tablet TAKE 2 TABLETS BY MOUTH IN THE MORNING, 1 TABLET MIDDAY, AND 1 TABLET IN THE EVENING 360 tablet 1 06/19/2023 Active amphetamine-dextroam phetamine (ADDERALL XR) 20 MG 24 hr capsuleIndications:A ttention deficit hyperactivity disorder (ADHD), combined type Take 1 capsule (20 mg total) by mouth 2 (two) times a day. 30 capsule 0 06/21/2023 Active amphetamine-dextroam phetamine (ADDERALL XR, 30MG,) 30 MG 24 hr capsuleIndications:A ttention deficit hyperactivity disorder (ADHD), combined type Take 1 capsule (30 mg total) by mouth daily. 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 05/10/2016 S/P laparoscopic appendectomy 05/10/2016 S/P umbilical hernia repair, follow-up exam 04/13 Status post gastric bypass for obesity 6 Cardiac murmur 05/10/2016 Immunizations Name Administration Dates Next Due Covid-19 (Moderna 12+) 100mcg/0.5mL dosage 07/12 Covid-19 (Moderna 12+) Bivalent 50mcg/0.5mL 05/13 Influenza Quad (High Dose Fl uzone) 0.7mL >65Yrs (HD-IIV4) 06/02/2022 Pneumococcal Conjugate PCV13 04/20/2017 Tdap 11/03/2008 Social History Tobacco Use Types Packs/Day Years Used Date Smoking Tobacco: Never Smokeless Tobacco: Never Tobacco Cessation:Counseling Given: Not Answered Alcohol Use Standard Drinks/Week Comments Yes 0 (1 standard drink = 0.6 oz pur e alcohol) infrequent wine Sex and Gender Information Value Date Recorded Sex Assigned at Female 04/01/2019 8:16 AM EDT Gender Identity Female 04/29/2019 10:39 AM EDT Sexual Orientation Not on file Job Start Date Occupation Industry Not on file Not on file Not on file Last Filed Vital Signs Vital Sign Reading Time Taken Comments Blood Pressure 118/80 06/06/2023 1:38 PM EDT Pulse 70 06/06/2023 1:38 PM EDT Temperature 36.6 ??C (97.9 ??F) 06/06/2023 1:38 PM ED T Respiratory Rate 18 11/01/2022 9:00 AM EST Oxygen Saturation 96% 06/06/2023 1:38 PM EDT Inhaled Oxygen Concentration - - Weight 68.9 kg (151 lb 14.4 oz) 06/06/2023 1:38 PM EDT Height 154.9 cm (5' 1 ) 06/06/2023 1:38 PM EDT Body Mass Index 28.7 06/06/2023 1:38 PM EDT Plan of Treatment Health Maintenance Due Date Last Done Comments Osteoporosis Screening (DEXA Scan) 01/31/2021 01/31/2019 COVID-19 Vaccine (3 - Moderna risk series) 06/30/2022 06/02/2022, 07/12/2021 Breast Cancer Screening (Mammogram) 04/07/2023 04/07/2022, 04/01/2021, 01/31/2019 Depression Screening 05/05/2023 05/05/2022, 05/05/2022, 12/16/2019 Fall Risk Assessment 05/05/2023 05/05/2022, 05/05/2022, 12/16/2019 Preventative Health Evaluation 05/05/2023 05/05/2022, 12/16/2019 Shingrix-Zoster Vaccine (2 of 2) 06/15/2023 04/20/2023 DTap / Tdap / Td (3 - Td or Tdap) 02/21/2024 02/20/2014, 11/03/2008 Influenza Vaccine (#1) 2024 06/02/2022 RSV Adult > 60+ Yrs or (1 - 1-dose 75+ series) 2024 Colon Cancer Screening (Colonoscopy) 11/01/2028 11/01/2018 Hepatitis C Screening Addressed 02/20/2013 Overri dden with the intention of not completing the topic Pneumococcal Vaccine Completed 04/20/2023, 04/20/2017 Hepatitis B Vaccines Aged Out No long er eligible based on patient's age to complete this topic RSV Ped < 20 months Aged Out No longe r eligible based on patient's age to complete this topic
--- OUTSIDE RECORDS SUMMARY | 2025-01-14 13:15 | XMS_ITS ---
Author Name [facility] Organization Unknown Care Team Organization Name Specialty Phone Email Start Date End Da ligia [facility] 03/18/2021 03/18/2021
--- OUTSIDE RECORDS SUMMARY | 2025-01-14 13:15 | XMS_ITS | Clinical Summary ---
Author Organization [address] Address [address] [place] [id number] Care Team Providers Care Bagger And Stock Handler Helper Name Role Phone Pallavi Quesada NP Primary Care Provider [phone] Allergies Active Allergy Reactions Criticality Noted Date Comments Clindamycin Hives High 04/08/2016 Purpura Purpura Medications baclofen (LIORESAL) 5 mg tablet Take 1 tablet (5 mg total) by mouth. 09/08/2020 Active cetirizine (ZYRTEC) 1 mg/mL oral solution Take 10 mLs (10 mg total) by mouth. Active dextroamphetami ne-amphetamine XR (ADDERALL XR) 20 mg 24 hr capsule Take 1 capsule (20 mg total) by mouth every morning. 12/24/2020 Active escitalopram oxalate (LEXAPRO) 10 mg tablet Take 10 mg by mouth every morning. 12/25/2020 Active furosemide (LASIX) 40 mg tablet TAKE 1 TABLET BY MOUTH TWICE DAILY 01/10/2021 Active gabapentin (NEURONTIN) 300 mg capsule Take 1 capsule (300 mg total) by mouth. 10/01/2020 Active LORazepam (ATIVAN) 1 mg tablet Take 1 tablet (1 mg total) by mouth 2 (two) times daily as needed. 11/20/2020 Active methenamine (HIPREX) 1 gram tablet TAKE 1 TABLET BY MOUTH TWICE DAILY 01/10/2021 Active trimethoprim (TRIMPEX) 100 mg tablet TAKE 1 TABLET BY MOUTH DAILY 01/05/2021 Active ondansetron (ZOFRAN) 4 mg tablet Take 1 tablet (4 mg total) by mouth every 6 (six) hours as needed for nausea. 20 tablet 02/10/2021 Active cefdinir (OMNICEF) 300 mg capsule Take 1 capsule (300 mg total) by mouth every 12 (twelve) hours. 02/21/2023 Active Active Problems Problem Noted Date Diagnosed Date [facility] arthritis 01/21/2021 Social History Tobacco Use Types Packs/Day Years Used Date Smoking Tobacco: Former Smokeless Tobacco: Never Tobacco Cessation:Counseling Given: Not Answered Alcohol Use Standard Drinks/Week Comments Yes 7 (1 standard drink = 0.6 oz pur e alcohol) Comments Unknown Sex and Gender Information Value Date Recorded Sex Assigned at Not on file Legal Sex Female 11:51 AM EDT Gender Identity Not on file Sexual Orientation Not on file Last Filed Vital Signs Vital Sign Reading Time Taken Comments Blood Pressure 79/49 02/10/2021 3:30 PM EDT Pulse 71 02/10/2021 3:30 PM EDT Temperature 36.6 ??C (97.9 ??F) 02/10/2021 4:00 PM ED T Respiratory Rate 16 03/08/2021 11:37 AM EDT Oxygen Saturation 94% 02/10/2021 3:30 PM EDT Inhaled Oxygen Concentration - - Weight 64.9 kg (143 lb 1.3 oz) 02/23/2023 10:24 AM EDT Height 157.5 cm (5' 2 ) 02/23/2023 10:24 AM EDT Body Mass Index 26.17 02/23/2023 10:24 AM EDT Plan of Treatment Health Maintenance Due Date Last Done Comments HIV screening 1962 Hepatitis C screening 1967 Lipid disorder screening 1989 Diabetes screening 1994 Shingles vaccine (Shingrix) (1 of 2 - Shingrix (RZV) 2 Dose Standard Series) 1999 Osteoporosis screening (bone density) 2014 Pneumococcal Vaccine (50+ years) (2 of 2 - PPSV23) 04/20/2018 04/20/2017 Tetanus adult (Td q 10,TDAP once) 11/03/2018 11/03/2008 Covid-19 vaccine series ( season) 2024 06/02/2022, 07/12/2021 RSV Immunization (1 - 1-dose 75+ series) 2024 Influenza vaccine 05/12/2025 06/02/2022 Colon cancer screening, Colonoscopy 08/02/2033 08/02/2023 Breast cancer screening Discontinued Cervical cancer screening Discontinued Meningococcal Vaccine Aged Out No rickey rey eligible based on patient's age to complete this topic Insurance [facility] on file MEDICARE [facility] on file MEDICARE [facility] on file MEDICARE Care Teams Bagger And Stock Handler Helper Relationship Specialty Start Date End Date Pallavi Quesada NP [address] [place] [phone] PCP - General 12/29/20
--- OUTSIDE RECORDS SUMMARY | 2025-01-14 13:15 | XMS_ITS | Encounter Summary ---
Author Organization [facility] Address [address] [place] [id number] Care Team Providers Care Woodwork Teacher Name Role Phone Pallavi Quesada MERGERS AND ACQUISITIONS MANAGER Primary Care Provider [phone] Encounter Details Date Type Department Care Team (Late st Contact Info) Description 01/25/2021 Telephone [facility] at [address] [place] [address] [phone] Liam Ag MD [address] [place] [phone] Social History Tobacco Use Types Packs/Day Years Used Date Smoking Tobacco: Never Alcohol Use Standard Drinks/Week Comments Yes 0 (1 standard drink = 0.6 oz pur e alcohol) Comments Unknown Sex and Gender Information Value Date Recorded Sex Assigned at Not on file Legal Sex Female 11:51 AM EDT Gender Identity Not on file Sexual Orientation Not on file documented as of this encounter Miscellaneous Notes * Telephone Encounter - Jolanta Ha - 01/25/2021 2:14 PM EDT Subha Weir is requesting pre-op paperwork be faxed to [phone]. Any questions call Oksana at [phone]. Thank you. documented in this encounter Plan of Treatment Not on file documented as of this encounter Visit Diagnoses Not on filedocumented in this encounter Care Teams Woodwork Teacher Relationship Specialty Start Date End Date Pallavi Quesdaa NP [address] [place] [phone] PCP - General 12/29/20 documented as of this encounter
--- OUTSIDE RECORDS SUMMARY | 2025-01-14 13:15 | XMS_ITS | Encounter Summary ---
Author Organization [facility] Address [address] [place] [phone] Care Team Providers Care Silk Snapper Name Role Phone Pallavi Quesada BILINGUAL ADMINISTRATIVE ASSISTANT Primary Care Provider [phone] Reason for Visit * Reason Comments Medication Problem Encounter Details Date Type Department Care Team (Late st Contact Info) Description 02/16/2021 Refill [facility] [address] [place], [place] [id number] Liam Ag MD [address] [place] [address] Medication Problem Social History Tobacco Use Types Packs/Day Years Used Date Smoking Tobacco: Former Smokeless Tobacco: Never Alcohol Use Standard Drinks/Week Comments Yes 7 (1 standard drink = 0.6 oz pur e alcohol) Comments Unknown Sex and Gender Information Value Date Recorded Sex Assigned at Not on file Legal Sex Female 11:51 AM EDT Gender Identity Not on file Sexual Orientation Not on file COVID-19 Exposure Response Date Recorded In the last month, have you been in contact with someone who was confirmed or suspected to have Coronavirus / COVID-19? No / Unsure 02/10/2021 11:25 AM EDT documented as of this encounter Plan of Treatment Not on file documented as of this encounter Visit Diagnoses Not on filedocumented in this encounter Care Teams Silk Snapper Relationship Specialty Start Date End Date Pallavi Quesada, MARCELLA [address] [place] [phone] PCP - General 12/29/20 documented as of this encounter
--- OUTSIDE RECORDS SUMMARY | 2025-01-14 13:15 | XMS_ITS | Encounter Summary ---
Author Organization [facility] and [facility] Address [address] [place] [address] Care Team Providers Care Craft Manager Name Role Phone Pallavi Quesada CERTIFIED REGISTERED NURSE PRACTITIONER Primary Care Provider [phone] Reason for Visit * Reason Comments Appointment Encounter Details Date Type Department Care Team (Late st Contact Info) Description 12/28/2020 Telephone [facility] at [address] [address] Referring, No Appointment Social History Tobacco Use Types Packs/Day Years Used Date Smoking Tobacco: Never Assessed Comments Unknown Sex and Gender Information Value Date Recorded Sex Assigned at Not on file Legal Sex Female 11:51 AM EDT Gender Identity Not on file Sexual Orientation Not on file documented as of this encounter Miscellaneous Notes * Telephone Encounter - Tiki Cortez - 12/29/2020 2:13 PM EDT Patient all set, appt scheduled with * Telephone Encounter - Deja Grey - 12/28/2020 12:36 PM EDT Pt calling to schedule as a new pt, requesting a call back in regards. documented in this encounter Plan of Treatment Not on file documented as of this encounter Visit Diagnoses Not on filedocumented in this encounter Care Teams Craft Manager Relationship Specialty Start Date End Date Pallavi Quesada, MARCELLA [address] [place] [phone] PCP - General 12/29/20 documented as of this encounter
--- OUTSIDE RECORDS SUMMARY | 2025-01-14 13:15 | XMS_ITS ---
Continuity of Care Document (CCD) Created on: January 14, 2025 Oksana Denise External Reference #: [id number] : [id number] Sex: Female Author Organization [facility] [address] [place] [address] Phone [phone] Care Team Providers Care Senior Sales Assistant Name Role Phone Willian Calero MD Care Team Information Service Crew Leader [phone] Problems Active Problems Provider Date Osteoporosis Kim Jennings M.D. Ons et: 12/02/2024 Obesity Kim Jennings M.D. Ons et: 12/02/2024 Anxiety Kim Jennings M.D. Ons et: 12/02/2024 Depressive disorder Kim Jennings M.D. Onset: 12/02/2024 Carcinoma of urinary bladder Kim bernard M.D. Onset: 12/02/2024 Pathological fracture of left hip Kim Garcia M.D. Onset: 12/02/2024 Gastroesophageal reflux disease Kim Gillis M.D. Onset: 12/02/2024 Iron deficiency anemia [place] Onset: 12/02/2024 Hearing loss Kim Jennings M.D. Ons et: 12/02/2024 Cervical arthritis Kim Jennings M.D. Onset: 12/02/2024 Social History Type Date Description Comments Sex Unknown Lives With Spouse Work Status Retired Tobacco Use Start: Unknown End: Quit ETOH Use Consumes 1 glass of wine per day Allergies and adverse reactions Active Allergies Criticality Reaction Severity Comments Date Clindamycin Unable to assess criticality 12/02/2024 Medications Active Medications SIG Qnty Indications Order ing Provider Date Cyclobenzaprine HCL5mg Tablets Unknown Owlmsrrgy6sn Tablets Willian Calero MD Amphetamine-Dextroamphe t ER30mg Caps ER 24HR Take 1 Capsule By Mouth Every Day In The Morning Willian Calero MD Diclofenac Wxmwzo52zj Tablets DR Take 1 Tablet Twice A Day By Oral Route With Meal(S), For as Needed For Pain. Unknown Escitalopram Jpohvlf53ry Tablets Take 1 Tablet By Mouth Every Day Willian Calero MD Qgfwbnmjnjdg688gh Tablets Take 1 Tablet (100 MG Total) By Mouth Daily. For UTI Prophylaxis Unknown Uvznhronlfpxbk92rv Tablets Take 1 Tablet By Mouth 1 Time Each Day prn Unknown Qusgpqdd919489Ilcb/GM Ointment Apply Topically To Affected Area 2 (Two) Times A Day. Unknown Pantoprazole Hfypul50pt Tablets DR Take 1 Tablet By Mouth Twice A Day Willian Calero MD Itlhrbpasg689cm Capsules Take 1 Capsule By Mouth Three Times A Day Willian Calero MD Acetic Acid0.25% Solution Use 60 cc Per Flush Four Times Daily as Needed Aman Vega MD Oyeexgdbyfd245tm Capsules TK Four CS PO 1 Hour B Dapp Unknown Albuterol Sulfate TXS109(90Base) mcg/Act Aerosol Inhale 2 Puffs Every 6 Hours as Needed Willian Calero MD Multivitamin Womens 50+ AdvancedTablets 1 by mouth every day Kim Jennings M.D. Citracal Calcium+D Slow Rmwaukx931-27-231qt-fs- Unit Tablets ER 24HR 1 by mouth every day Kim Jennings M.D. Vital Signs Date Vital Result Comment 12/02/2024 9:36am BP Systolic 146 mmHg BP Diastolic 70 mmHg Heart Rate 94 /min Height 61.75 inches 5'1.75 Weight 145.50 lb BMI (Body Mass Index) 26.8 kg/m2 Results Test Acquired Date Facility Test Result H/L Range N ote Comp. Metabolic Panel (14) 12/02/2024 [facility] Glucose 100 mg/dL High 70-99 BUN 22 mg/dL 8-27 Creatinine 1.37 mg/dL High 0.57-1.00 eGFR 40 mL/min/1.73 Low >59 BUN/Creatinine Ratio 16 12-28 Sodium 142 mmol/L 134-144 Potassium 4.6 mmol/L 3.5-5.2 Chloride 110 mmol/L High 96-106 Carbon Dioxide, Total 19 mmol/L Low 20-29 Calcium 9.1 mg/dL 8.7-10.3 Protein, Total 6.8 g/dL 6.0-8.5 Albumin 4.4 g/dL 3.8-4.8 Globulin, Total 2.4 g/dL 1.5-4.5 Bilirubin, Total 0.2 mg/dL 0.0-1 .2 Alkaline Phosphatase 73 IU/L 44-121 Ast (Sgot) 25 IU/L 0-40 Alt (SGPT) 23 IU/L 0-32 TSH+Free T4 12/02/2024 [facility] TSH 4.000 uIU/mL 0.450-4.50 0 T4,Free(Direct) 1.02 ng/dL 0.82- 1.77 Vitamin D, 25-Hydroxy 12/02/2024 [facility] Vitamin D, 25-Hydroxy 30.7 ng/mL 30.0-100.0 1 N-Telopeptide, Urine 12/02/2024 [facility] N-Telopeptide 201 nmolBCE Not Estab. Creatinine, Urine 58.2 mg/dL Not Estab. N-Telo/Creat. Ratio 39 nMBCE/mMCr 0-89 Interpretive Guide: See Comment: 2 1 Vitamin D deficiency has been defined by the [place] of Medicine and an Endocrine Society practice guideline as a level of serum 25-OH vitamin D less than 20 ng/mL (1,2). The Endocrine Society went on to further define vitamin D insufficiency as a level between 21 and 29 ng/mL (2). 1. IOM ([place] of Medicine). 2010. Dietary reference intakes for calcium and D. [place]: The National Academies Press. 2. Elina FOSTER, Mitul BOYD, Angel METZGER, et al. Evaluation, treatment, and prevention of vitamin D deficiency: an Endocrine Society clinical practice guideline. JCEM. 2010; 96(7):1911-30. 2 The N-telopeptide an d Creatinine are used to calculate the N-telo/Creat. Ratio which is referred to as NTx . Suggested guidelines for the clinical use of NTx are as follows: 1. Menopausal Women not on Hormone Replacement Therapy (HRT): Women with a baseline NTx value >38 are at significant risk for a decrease in bone mineral density (BMD) after 1 year compared to women on HRT. The probability of a decline in BMD increases with NTx value as follows: (1): Baseline NTx Probability of Decrease in BMD 18- 38 1.4 p=0.28 38- 51 2.5 p=0.03 51- 67 3.8 p=0.0006 67-188 17.3 p=0.0001 2. Menopausal Women Receiving Antiresorptive Therapy: The probability that treatment is effective after three months is increased when the measured NTx value is <or=38 nM BCE/mM QUICK SERVICE TECHNICIAN, or NTx has decreased >or=30% from baseline.[1] 3. Patients with Paget's Disease of Bone: The probability that treatment is effective after one month is increased when the measured NTx value is within the reference range, or NTx has decreased >or=30% from baseline.[2] 1. Charito CH, Vivar NH, Maged GS, et al. Am J Med, 102:29-37,1997. (1):M757, 1996. 2. Bone H, Zhang J, et al. J Bone Min Res.11(1):M757,1996 Medical Devices Description No Information Available Encounters Type Date Location Provider Dx Diagnosis Office Visit 12/02/2024 9:15a Main Office Kim Jennings M.D. M81.0 Age-related osteoporosis w/o current pathological fracture Assessments Date Code Description Provider 12/02/2024 M81.0 Age-related oste oporosis without current pathological fracture Kim Jennings M.D. Plan of Treatment Future Appointment(s):* 04/11/2025 9:00 am - Kim Jennings M.D. at Main Office 12/02/2024 - Kim Jennings M.D.* M81.0 Age-related osteoporosis without current pathological fracture Functional Status Description No Information Available Mental Status Description No Information Available Referrals Description No Information Available
== END 2025-01-14 12:30 | disposition home or self-care (01) ==
LOC: HO.HMCFM 11:32
PROVIDERS: PCP Internal Medicine; Visit Provider Internal Medicine
DX: R41.840 Attention and concentration deficit (principal); F41.9 Anxiety disorder, unspecified; M25.50 Pain in unspecified joint

== ENCOUNTER → 2025-01-14 11:32 | Outpatient (BNVA) | payer OTHER, SELFPAY | PROVIDERS: PCP Internal Medicine; Visit Provider Internal Medicine | DX: M81.0 Age-related osteoporosis without current pathological fracture (principal); M50.30 Other cervical disc degeneration, unspecified cervical region; K21.9 Gastro-esophageal reflux disease without esophagitis; R41.840 Attention and concentration deficit; F41.9 Anxiety disorder, unspecified; D64.9 Anemia, unspecified; F43.9 Reaction to severe stress, unspecified; M25.50 Pain in unspecified joint; M17.10 Unilateral primary osteoarthritis, unspecified knee | CPT/HCPCS: 96127 ==

== ENCOUNTER 2025-01-16 09:06 | Outpatient (REF) | payer OTHER, SELFPAY ==
--- NOTE | ~2025-01-16 | XR_ITS ---
EXAMINATION: XR FOREARM 2 VIEWS LEFT, XR WRIST 3 OR MORE VIEWS LEFT HISTORY: W19.XXXA - Unspecified fall, initial encounter COMPARISON: Correlation is made with plain films of the left elbow performed earlier in the day. FINDINGS: Four views of the left wrist including a scaphoid view and AP and lateral views of the left forearm are submitted. Osseous mineralization is normal. The previously seen fracture of the radial neck is less well visualized as images. No additional forearm fracture is seen. The bones of the wrist are intact. There is mild degenerative change of the 1st carpometacarpal joint. Again seen is an elbow joint effusion. XR/XR wrist LT min 3V IMPRESSION: Nondisplaced fracture of the radial neck with an associated joint effusion. No additional left forearm or wrist fracture is identified. Electronically signed by: Vern Kaiser MD 01/16/2025 10:27 AM EDT
--- NOTE | ~2025-01-16 | XR_ITS ---
EXAMINATION: XR ELBOW 3 VIEWS LEFT HISTORY: M25.522 - Pain in left elbow COMPARISON: There are no prior studies available for comparison. FINDINGS: Three views of the left elbow are submitted. Osseous mineralization is normal. There is a nondisplaced fracture of the radial neck. No additional fracture is identified. There is no dislocation. The joint spaces are preserved. There is a joint effusion with elevation of the anterior and posterior fat pads. XR/XR elbow LT min 3V IMPRESSION: Nondisplaced fracture of the radial neck with an associated joint effusion. Electronically signed by: Vern Kaiser MD 01/16/2025 09:28 AM EDT
--- NOTE | ~2025-01-16 | XR_ITS ---
EXAMINATION: XR FOREARM 2 VIEWS LEFT, XR WRIST 3 OR MORE VIEWS LEFT HISTORY: W19.XXXA - Unspecified fall, initial encounter COMPARISON: Correlation is made with plain films of the left elbow performed earlier in the day. FINDINGS: Four views of the left wrist including a scaphoid view and AP and lateral views of the left forearm are submitted. Osseous mineralization is normal. The previously seen fracture of the radial neck is less well visualized as images. No additional forearm fracture is seen. The bones of the wrist are intact. There is mild degenerative change of the 1st carpometacarpal joint. Again seen is an elbow joint effusion. XR/XR forearm LT 2V IMPRESSION: Nondisplaced fracture of the radial neck with an associated joint effusion. No additional left forearm or wrist fracture is identified. Electronically signed by: Vern Kaiser MD 01/16/2025 10:27 AM EDT
--- OUTSIDE RECORDS SUMMARY | 2025-01-16 09:38 | XMS_ITS | Encounter Summary ---
Author Organization [facility] and [facility] Address [address] [place] [address] Care Team Providers Care Key Person Name Role Phone Pallavi Quesada OVERHAULER BUS TRUCK Primary Care Provider [phone] Reason for Visit * Reason Comments Medication Problem Encounter Details Date Type Department Care Team (Late st Contact Info) Description 02/16/2021 Refill [facility] [address] [place], [place] [id number] Liam Ag MD [address] [place] [address] Medication Problem Social History Tobacco [...] on filedocumented in this encounter Care Teams Key Person Relationship Specialty Start Date End Date Pallavi Quesada, MARCELLA [address] [place] [address] PCP - General 12/29/20 documented as of this encounter
--- OUTSIDE RECORDS SUMMARY | 2025-01-16 09:38 | XMS_ITS | Continuity of Care Document ---
Author Organization [facility] [address] [place] [address] Phone [phone] Care Team Providers Care Sheriff'S Officer Name Role Phone Willian Calero MD Care Team Information Pest Control Operator [phone] Problems Active Problems Provider Date Osteoporosis Kim [...] ing Provider Date Cyclobenzaprine HCL5mg Tablets Unknown Nohrekqop4sr Tablets Willian Calero MD Amphetamine-Dextroamphe t ER30mg Caps ER 24HR Take 1 Capsule By Mouth Every Day In The Morning Willian Calero MD Diclofenac Zbwjqo31zs Tablets DR Take 1 Tablet Twice A Day By Oral Route With Meal(S), For as Needed For Pain. Unknown Escitalopram Fwdugwb80wf Tablets Take 1 Tablet By Mouth Every Day Willian Calero MD Knqszqedejxj438oc Tablets Take 1 Tablet (100 MG Total) By Mouth Daily. For UTI Prophylaxis Unknown Ztbpfokugwirxt51bo Tablets Take 1 Tablet By Mouth 1 Time Each Day prn Unknown Kmalowvg178349Tyri/GM Ointment Apply Topically To Affected Area 2 (Two) Times A Day. Unknown Pantoprazole Kbixyj46hu Tablets DR Take 1 Tablet By Mouth Twice A Day Willian Calero MD Pptkvvjjek051id Capsules Take 1 Capsule By Mouth Three Times A Day Willian Calero MD Acetic Acid0.25% Solution Use 60 cc Per Flush Four Times Daily as Needed Aman Vega MD Eucsljorydj675rh Capsules TK Four CS PO 1 Hour B Dapp Unknown Albuterol Sulfate KWC832(90Base) mcg/Act Aerosol Inhale 2 Puffs Every 6 Hours as Needed Willian Calero MD Multivitamin Womens 50+ AdvancedTablets 1 by mouth every day Kim Jennings M.D. Citracal Calcium+D Slow Zhhewye556-69-522zf-eo- Unit Tablets ER 24HR 1 by mouth [...] D deficiency has been defined by the [place] of Medicine and an Endocrine Society practice guideline as a level of serum 25-OH vitamin D less than 20 ng/mL (1,2). The Endocrine Society went on to further define vitamin D insufficiency as a level between 21 and 29 ng/mL (2). 1. IOM ([place] of Medicine). 2010. Dietary reference intakes for [...] measured NTx value is <or=38 nM BCE/mM ELECTRIC MELT OPERATOR, or NTx has decreased >or=30% from baseline.[1] [...]
--- OUTSIDE RECORDS SUMMARY | 2025-01-16 09:38 | XMS_ITS | Clinical Summary ---
Author Organization [facility] Address [address] [place] [address] Care Team Providers Care Resident Caregiver Name Role Phone Unavailable Primary Care Provider [...]
--- OUTSIDE RECORDS SUMMARY | 2025-01-16 09:38 | XMS_ITS | Clinical Summary ---
Author Organization [address] Address [address] [place] [address] Care Team Providers Care Yardage Control Operator Name Role Phone Pallavi Quesada [facility] Primary Care Provider [phone] Allergies Active Allergy Reactions Criticality Noted Date [...] patient's age to complete this topic Insurance [facility] on file MEDICARE [facility] on file MEDICARE [facility] on file MEDICARE Care Teams Yardage Control Operator Relationship Specialty Start Date End Date Pallavi Quesada NP [address] [place] [phone] PCP - General 12/29/20
--- OUTSIDE RECORDS SUMMARY | 2025-01-16 09:38 | XMS_ITS | Encounter Summary ---
Author Organization [facility] and [facility] Address [address] [place] [address] Care Team Providers Care Dean Of Student Services Name Role Phone Pallavi Quesada LEGAL INTERNSHIP Primary Care Provider [phone] Encounter Details Date Type Department Care Team (Late st Contact Info) Description 01/25/2021 Telephone [facility] at [address] [place] [phone] Liam Ag MD [address] [place] [address] Social History Tobacco Use Types Packs/Day [...] is requesting pre-op paperwork be faxed to [phone]. Any questions call Oksana at [phone]. Thank you. documented in this encounter Plan of Treatment Not on file documented as of this encounter Visit Diagnoses Not on filedocumented in this encounter Care Teams Dean Of Student Services Relationship Specialty Start Date End Date Pallavi Quesada NP [address] [place] [address] PCP - General 12/29/20 documented as of this encounter
--- OUTSIDE RECORDS SUMMARY | 2025-01-16 09:38 | XMS_ITS | Clinical Summary ---
Author Organization [facility] Address [address] [place] [address] Phone Care Team Providers Care Business Process Specialist Name Role Phone Willian Calero MD Primary Care Provider [phone] Allergies Active Allergy Reactions Criticality Noted Date Comments Clindamycin 10/17/2024 Medications amphetamine-dext roamphetamine XR (ADDERALL XR) 30 mg 24 hr capsule Take 1 capsule (30 mg total) by mouth 1 (one) time each day in the morning. Do not crush or chew. Max Daily Amount: 30 mg Active escitalopram (LEXAPRO) 20 mg tablet Take 1 tablet (20 mg total) by mouth 1 (one) time each day. Active sulfamethoxazole -trimethoprim (BACTRIM DS,SEPTRA DS) 800-160 mg per tablet Take 1 tablet by mouth 2 (two) times a day. Active calcitonin salmon (MIACALCIN) 200 unit/actuation nasal spray Administer 1 spray into one nostril 1 (one) time each day. Active gabapentin (NEURONTIN) 300 mg capsule Take 1 capsule (300 mg total) by mouth 3 (three) times a day. Active pantoprazole (PROTONIX) 40 mg EC tablet Take 1 tablet (40 mg total) by mouth 1 (one) time each day before breakfast. Do not crush, chew, or split. Active multivitamin with minerals tablet Take 1 tablet by mouth 1 (one) time each day. Active cetirizine (ZyrTEC) 10 mg tablet Take 1 tablet (10 mg total) by mouth 1 (one) time each day. Active loratadine (CLARITIN REDITABS) 10 mg dispersible tablet Dissolve 1 tablet (10 mg total) on top of the tongue 1 (one) time each day. Active saccharomyces boulardii (FLORASTOR) 250 mg capsule Take 1 capsule (250 mg total) by mouth 1 (one) time each day. Active calcium citrate (CALCITRATE) 950 mg (200 mg elemental calcium) tablet Take 1 tablet (950 mg total) by mouth. Active LORazepam (ATIVAN) 0.5 mg tablet Take 1 tablet (0.5 mg total) by mouth every 6 (six) hours if needed for anxiety. 0.5 to 1mg a day Max Daily Amount: 2 mg Active spironolactone (ALDACTONE) 25 mg tablet Take 1 tablet (25 mg total) by mouth 1 (one) time each day. 30 each 11 10/17/19 26 Active Active Problems Problem Noted Date Diagnosed Date Newly recognized murmur 10/16/2024 Surgical History Surgery Date Site/Laterality Comments BLADDER SURGERY PROCEDURE:BLADDER SURGERY;COMMENT:cystectomy with creation of neobladder Medical History Medical History Date Comments Anxiety DX:Anxiety Adhd DX:ADHD Visual impairment DX:Visual impa irment Social History Tobacco Use Types Packs/Day Years Used Date Smoking Tobacco: Never Smokeless Tobacco: Never Alcohol Use Standard Drinks/Week Comments Yes 0 (1 standard drink = 0.6 oz pur e alcohol) Comments Unknown Sex and Gender Information Value Date Recorded Sex Assigned at Not on file Legal Sex Female 7:20 PM EST Gender Identity Not on file Sexual Orientation Not on file Obstetrics History Last Filed Vital Signs Vital Sign Reading Time Taken Comments Blood Pressure 140/88 10/17/2024 1:13 PM EST Pulse 79 10/17/2024 1:13 PM EST Temperature - - Respiratory Rate - - Oxygen Saturation 96% 10/17/2024 1:13 PM EST Inhaled Oxygen Concentration - - Weight 62.6 kg (138 lb) 10/17/2024 1:13 PM EST Height 154.9 cm (5' 1 ) 10/17/2024 1:13 PM EST Body Mass Index 26.07 10/17/2024 1:13 PM EST Plan of Treatment Upcoming Encounters Date Type Department Care Team (Late st Contact Info) Description 02/18/2025 9:10 AM EDT Office Visit [facility] Cardiology [facility] [address] [place] [phone] Deidre Foy NP [address] [place] [address] [place] [address] 03/26/2025 2:30 PM EDT Ancillary Procedure [facility] [address] [place] [phone] Health Maintenance Due Date Last Done Comments Breast Cancer Screening 1950 Colorectal Cancer Screening: Colonoscopy 08/19/2022 Depression Screening 08/19/2022 Falls Risk Assessment 08/19/2022 Hepatitis C Screening 08/19/2022 Osteoporosis Screening (Bone Density Screening) 08/19/2022 Social Influencers of Health Screening 08/19/2022 COVID-19 Vaccine (9 - Moderna risk season) 2024 06/10/2024, 06/03/2023, 01/19/2023, Additional history exists DTaP,Tdap,and Td Vaccines (3 - Td or Tdap) 12/01/2031 11/30/2021, 11/03/2008 Pneumococcal Vaccine: 50+ Years Completed 04/20/2023, 04/20/2017, 06/16/2014 Zoster Vaccines Completed 04/20/2023, 01/09, 08/25/2019 RSV Immunization Adult Patients Completed 06/23/2023 Influenza Vaccine Completed 06/10/2024, , 06/02/2022, Additional history exists HIB Vaccines Aged Out No longer eligi ble based on patient's age to complete this topic HPV Vaccines Aged Out No longer eligi ble based on patient's age to complete this topic Hepatitis A Vaccines Aged Out No long er eligible based on patient's age to complete this topic Hepatitis B Vaccines Aged Out No long er eligible based on patient's age to complete this topic IPV Vaccines Aged Out No longer eligi ble based on patient's age to complete this topic MMR Vaccines Aged Out No longer eligi ble based on patient's age to complete this topic Meningococcal ACWY Vaccine Aged Out N o longer eligible based on patient's age to complete this topic Meningococcal B Vaccine Aged Out No l onger eligible based on patient's age to complete this topic RSV Immunization Patients Under 20 months Aged Out No longer eligible based on patient's age to complete this topic Varicella Vaccines Aged Out No longer eligible based on patient's age to complete this topic Insurance MEDICARE [facility] Care Teams Business Process Specialist Relationship Specialty Start Date End Date Willian Calero MD [facility] E[facility] Fabian PCP - General Internal Medicine 09/18/24
--- OUTSIDE RECORDS SUMMARY | 2025-01-16 09:38 | XMS_ITS | Encounter Summary ---
Author Organization [facility] and [facility] Address [address] [place] [address] Care Team Providers Care Painter Railroad Car Name Role Phone Pallavi Quesada SUPERVISOR FINISHING DEPARTMENT Primary Care Provider [phone] Reason for Visit * Reason Comments Appointment Encounter Details Date Type Department Care Team (Late st Contact Info) Description 12/28/2020 Telephone [facility] at [address] [address] Referring, No Appointment Social History [...] on filedocumented in this encounter Care Teams Painter Railroad Car Relationship Specialty Start Date End Date Pallavi Quesada, MARCELLA [address] [place] [phone] PCP - General 12/29/20 documented as of this encounter
== END 2025-01-16 09:07 | disposition home or self-care (01) ==
LOC: HO.XRAY 09:06
PROVIDERS: PCP Internal Medicine; Visit Provider Internal Medicine
DX: M25.522 Pain in left elbow (principal); M79.602 Pain in left arm; W19.XXXD Unspecified fall, subsequent encounter
CPT/HCPCS: 73080; 73090; 73110

== ENCOUNTER → 2025-01-16 09:11 | Outpatient (BNV) | payer OTHER, SELFPAY | PROVIDERS: PCP Internal Medicine; Visit Provider Radiology Diagnostic Radiology | DX: S52.135A Nondisplaced fracture of neck of left radius, initial encounter for closed fracture (principal); M25.432 Effusion, left wrist; W19.XXXA Unspecified fall, initial encounter | CPT/HCPCS: 73080; 73090; 73110 ==

== ENCOUNTER 2025-03-20 12:05 | Outpatient (AMB) | payer OTHER, SELFPAY ==
--- NOTE | 2025-03-20 12:15 | A.OFFPC_ITS ---
Vital Signs 03/20/25 12:30 BP 124/64 Blood Pressure Location Lt brachial Position Sitting Respiration 14 Pulse 62 Pulse Source Pulse Oximeter Temp 98.2 F Temp Source Oral Pulse Oximetry (%) 82 L Oxygen Delivery Method Room Air Oxygen Flow Rate 100 Intake Visit Reasons: [facility] Discharge Follow-Up Intake Note: Hospital follow up Freight Unloader Required: No Allergies clindamycin (CLINDAMYCIN) Allergy (Severe, Verified 03/20/25 12:39) PURPURA Seasonal Allergies Allergy (Intermediate, Verified 03/20/25 12:39) Congestion Clindamycin HCl Allergy (Unknown, Uncoded 03/20/25 12:18) purpra cilantro Adverse Reaction (Unknown, Uncoded 03/20/25 12:18) Hives Clindamycin Adverse Reaction (Unknown, Uncoded 03/20/25 12:18) purpra Medication List - Last Reconciled 03/20/25 by Sofia Hughes, ENVIRONMENTAL ENGINEERING PROFESSOR- albuterol sulfate 90 mcg/actuation 2 puffs inhalation Q6H PRN cetirizine (Zyrtec) 10 mg PO DAILY PRN cyclobenzaprine 5 mg PO TID PRN dextroamphetamine-amphetamine 20 mg ER 1 cap PO BID 60 days diclofenac sodium 75 mg PO BID docusate sodium Patient taking 75mg escitalopram oxalate 20 mg PO DAILY gabapentin 300 mg PO TID lorazepam 1 mg PO BID PRN multivitamin (Daily Multi-Vitamin tablet) 1 tab PO DAILY pantoprazole 40 mg PO BID trimethoprim 100 mg PO DAILY Tobacco use date assessed: 03/20/25 Fall risk assessment: 2 + Falls in past year Last assessed Fall Risk: 03/20/25 Dental Screening Dental Screen Date: 01/14/25 HPI HPI Comments History of Present Illness Details 74 year old female with a past medical h istory of osteoporosis, anemia, cervical DDD, ADD, anxiety, GERD, bladder ca s/p cystectomy Here today for a Transitional Care Management Visit Discharge summary reviewed. Admission Date: 02/10/25 Discharge Date: 02/12/25 Hospital: [facility] Date of interactive contact with Nurse Navigator: as documented in chart Pending diagnostic tests/treatments: N Pending consults: N DME: N PT/OT/SHORE WORKER: N Medications reconciled & updated. During todays TCM visit, the d/c summary was reviewed, along with the need for or follow-up on pending diagnostic tests and treatments, as necessary interaction with other health senior resident care director who will assume or reassume care of the beneficiary?s system-specific problems was done or is being worked on, education was provided to the beneficiary, family, guardian, and/or caregiver, referrals to establish or re-establish and arrange needed community resources we completed, assistance in scheduling required follow-up with community providers and services & finally updated medication list given to patient/caregiver History of Present Illness - The patient is a 74-year-old female pr esenting for TCM. - Hospitalized last month with confirmed UTI diagnosis. - Past sepsis episode rendered her uncon scious for two days. - Two documented UTIs since 2016. - Reports urine odor changes when she murphy s an infection; does not have any sx @ this time - Contributor: suboptimal self-catheteri zation. - Stressors: son's ALS, he is on hospice - active w/ UroGyn - Current management with trimethoprim f or UTI. Review of Systems - Genitourinary: Reports changes in urin e odor. - Neurological: Reports past periods of disorientation are now resolved. She is back to baseline. - General: Reports factors increasing st ress and potential neglect in self-care. Denies fever, chills, abd pain, n/v. Physical Exam General: Well developed, well nourished, in no acute distress. Appears stated age. Head: Normocephalic, atraumatic. Eyes: Pupils are equal, round and reactive to light and accommodation. Conjunctivae are clear. Lungs: Clear to auscultation bilaterally. No rales, rhonchi or wheeze noted. Good air flow in all gordon. Heart: Regular rate and rhythm. A murmur is noted. Abdomen: Bowel sounds present in all quadrants. The abdomen is soft, nontender, with no masses or organomegaly noted. Urostomy RLQ, no drainage, nontender . No CVAT bilat Musculoskeletal: Joints are nontender, without swelling, redness, or effusions. Neuro: nonfocal Psych: Mood and affect appropriate. Orientation and mentation are back to baseline. Results - Labs: Urine sample collected via self cath and submitted for laboratory analysis. Discussion Notes I communicated extensively with the patient about her recent urinary issues and potential connections to stress and self-catheterization practices. We discussed the importance of ensuring proper catheterization techniques to potentially reduce UTI risks. I set expectations to reach out through our patient portal once urine culture results are available. Consent was obtained for laboratory testing, and the patient acknowledged understanding of the need for follow-up based on results. We discussed her concurrent stressors, emphasizing the impact of emotional distress on self-care practices, and suggested community resources if needed. Assessment and Plan 1. Urinary Tract Infection (UTI) - Send urine out for UA with culture. - Address catheter hygiene. - FU with UroGyn Consent Patient was informed and verbally consented to the use of an ambient scribe for clinic note documentation during this visit. Total time spent caring for the patient today was 30 minutes. This includes time spent before the visit reviewing the chart, time spent during the visit, and time spent after the visit on documentation, reviewing laboratory results, diagnostic imaging, medications, performing a medically necessary evaluation, counseling on diagnoses, care coordination, ordering appropriate tests, ordering appropriate medications, review of tests performed by other providers, reporting test results with the patient, communication with other healthcare providers. [facility] Medical History (Updated 03/20/25 @ 13:05 by Sofia Hughes [facility]) FH: total knee replacement Surgical History (Updated 12/23/22 @ 13:50 by MEENA Otoole) H/O gastric bypass History of appendectomy History of urostomy Lipoma of back (12/19/22) Family History (Updated 01/14/25 @ 11:50 by Mery Renteria MA) Daughter FHx: mental illness Son Substance abuse Social History (Updated 01/14/25 @ 11:50 by Mery Renteria MA) Housing: Apartment Alcohol intake: current Alcohol intake frequency: a few times a week Alcohol type: wine Patient Tobacco Use Status: Former Tobacco user e-Cigarette/Vaping Use: Never Used Second Hand Smoke Exposure: No service: No Current occupational status: employed and retired Current occupational exposures/hazards: No Cognitive needs: No Hearing needs: No Vision needs: No Questionnaire Thrive Questionnaire Date Thrive assessed: 01/14/25 BRANDON-7 AMB Questionnaire BRANDON-7 Date BRANDON - 7 assessed: 01/14/25 Source: Developed by Drs. Vern Vázquez, Tyra Chaudhary, Jatin Medina and colleagues, with an educational miles from [place]. Physical exam (Primary Care) Vital Signs: Last Vital Signs Temp 98.2 F 03/20/25 12:30 Pulse 62 03/20/25 12:30 Resp 14 03/20/25 12:30 BP 124/64 03/20/25 12:30 Pulse Ox 82 L 03/20/25 12:30 Oxygen Delivery Method Room Air 03/20/25 12:30 Oxygen Flow Rate 100 03/20/25 12:30 Tobacco/Smoking Status: Tobacco use Status Tobacco use date assessed 03/20/25 03/20/25 12:20 Patient Tobacco Use Status Former Tobacco user 03/20/25 12:17 e-Cigarette/Vaping Use Never Used 03/20/25 12:17 Thrive Assessment: Date of Thrive Assessment Date Thrive assessed 01/14/25 03/20/25 12:17 Coding Level of Care Code TCM High MDM <= 14 days Complex EM visit Add On [id number] Diagnoses Hospital discharge follow-up Z09 Self-catheterizes urinary bladder Z78.9 Presence of urostomy Z93.6 History of bladder cancer Z85.51 Assessment & Plan Assessment & Plan (1) Hospital discharge follow-up: Code(s): Z09 - Encounter for follow-up examination after completed treatment for conditions other than malignant neoplasm (2) Self-catheterizes urinary bladder: Code(s): Z78.9 - Other specified health status Category: Medical (3) Presence of urostomy: Code(s): Z93.6 - Other artificial openings of urinary tract status Category: Medical (4) History of bladder cancer: Code(s): Z85.51 - Personal history of malignant neoplasm of bladder Category: Medical Plan . Orders: Orders UA CC w/rflx Micro + Cult Today R30.0 - Dysuria
[2025-03-20 12:30] VITALS: BP 124/64; PULSE 62; RESP 14; TEMP 36.8; O2SAT 82
--- OUTSIDE RECORDS SUMMARY | 2025-03-20 12:30 | XMS_ITS | Clinical Summary ---
Author Organization [facility] Address [address] [place] [address] Care Team Providers Care Law Enforcement Director Name Role Phone Unavailable Primary Care Provider [...] 70 06/06/2023 1:38 PM EDT Temperature 36.6 C (97.9 F) 06/06/2023 1:38 PM EDT Respiratory Rate 18 11/01/2022 9:00 AM EST [...] - Td or Tdap) 02/21/2024 02/20/2014, 11/03/2008 RSV Adult > 60+ Yrs or (1 - 1-dose 75+ series) 2024 Influenza Vaccine (#1) 2025 06/02/2022 Colon Cancer Screening (Colonoscopy) 11/01/2028 11/01/2018 Hepatitis [...]
--- OUTSIDE RECORDS SUMMARY | 2025-03-20 12:30 | XMS_ITS | Data Portability ---
Author Organization EBER - Wilbur Lundberg [facility] Surgeons [facility], [facility] Coleman Address [address] [place] [address] Care Team Providers Care Hull Grinder Name Role Phone LINN ZEPEDA Primary Care Provider [phone] Assessment Encounter Date Assessment Date Assessment LastModified by Organization Details LastModified Time 01/29/2025 01/29/2025 CC Fx L radius bone DOI ~ 3 weeks ago; wrist pain left HPI 74 y/o F had xrays done at [facility] due to persistent pain after accident with findings of fracture Date of onset/injury: 3 weeks ago Injury: left radius neck fracture ASTRID: fall from standing while dog walking Treatment: none Reports no other injury. No head injury. No prior fracture. Persistent pain with use especially left wrist level. No numbness or tingling. 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 Exam L UE skin intact, no swelling elbow-wrist, elbow motion guarded/painful but near full flex/ext and pronation/supinat ion about 50% full, wrist tender diffuse, no digit swelling Xrays ordered obtained reviewed by me today at [facility] left elbow three views fracture radial neck minimally displaced left wrist three views arthritis basel joint of thumb Diagnosis Assessment 1. closed displaced fracture left radius neck initial 2. left wrist pain 3. left wrist contusion/sprain/ strain 4. 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 Lab None recorded . Referral pain manageme nt referral - neck pain, little to no arm symptoms . MRI complete d. no surgical findings . evaluati on for injectio n therapy 2024 025 [email or web address] Not available 5 07:30:08 physical therapis t referral - Evaluate & Rx Lumbar Stabiliz ation Program 2024 025 [email or web address] Not available 5 15:34:19 physical therapis t referral - Evaluate & Rx Cervical Stabiliz ation Program 2024 025 cstamand [facility] ([facility]), [address], [place], [address], 5 13:43:58 Procedures None recorded . Surgeries None recorded . Imaging XR, elbow, 3 or more view - 315 left elbow 3v new pt 2024 [facility], [address], [address], [place], [address], 5 11:17:17 XR, wrist, 3 or more view - 315 left wrist 3v new problem 2024 025 [email or web address] [facility], [address], [address], [place], [address], 5 11:17:17 XR, knee, 4 or more view - right knee rm 115 2024 025 [email or web address] [facility], [address], [address], [place], [address], 5 14:38:25 XR, lumbar spine, 2 view - 302 l spine 2v 2024 025 [facility], [address], [address], [place], [address], 5 15:34:19 MRI, cervical spine, w/o contrast - MRI C spine w/o contrast R/O myelopat hy + right arm radiculo janeth History of cancer 2024 025 [facility] ([facility]), [address], [place], [address], 13:43:57 Medication Orders celecoxi b 200 mg capsule 2024 025 [id number], [address] [place], [address], 5 10:22:19 diclofen ac sodium 75 mg tablet,d elayed release 2024 025 [id number], [address] [place], [address], 11:16:25 methocar bamol 750 mg tablet 2024 025 [id number], [address] [place], [address], 10:24:10 Patient TargetsNo targets recorded. Patient InstructionsNo instructions recorded. Reason for Referral Physical Therapist Referral for Cervical radiculopathy Evaluate & RxCervical Stabilization Program Referring Physician: Nilda West, Orthopedic Surgery, Encounter Date: 09/17/2024 Physical Therapist Referral for Lumbar spondylosis Evaluate & RxLumbar Stabilization Program Referring Physician: Nilda West, Orthopedic Surgery, Encounter Date: 09/25/2024 Pain Management Referral for Cervical spondylosis neck pain, little to no arm symptoms. MRI completed. no surgical findings. evaluation for injection therapy Referring Physician: Nilda West, Orthopedic Surgery, Encounter Date: 09/25/2024 Results Created Date Observation Date Name Description Value Unit Range Abnormal Flag Note LastModifiedBy Organization Detail LastModifiedTime 09/17/1906/03/2024 XR, cervi randy spine No observ ation record ed. [email or web address] Not Available 09/17 15:19:39 09/24/19 25 09/22/2024 MRI, cervi randy spine , w/o contr ast [facility] Access ion Number : [id number] Patidaiana t Name: Oksana Denise Record Number : [id number] Date of : 1949 Date of Exam: 2024 Referr ing Physic harish: Becky linda, Nilda [facility] [address] [facility] [address] Exam: MR Cervic al Spine (C-) CPT 43350 Room Descri ption: [place] [facility] 1.5 MRI of the cervic al spine withou t contra st. HISTOR Y: Neck pain. Bilate ral arm pain. COMPAR MICH: None. FINDIN GS: The cervic al cord appear s normal in calibe r and signal intens ities. Van l locali zer shows a mild levosc oliosi s of cervic al spine which could be positi onal or due to muscle spasm. On the sagitt al images , there is a mild samantha listhe sis of C4 over C5 and a mild retrol isthes is of C5 over C6. No verteb ral body fractu re is seen. The bone marrow signal s are within normal limits . Disc desicc ation is seen diffus brendon. C5-C6 level has anteri or osteop hytes, disc space narrow ing and mild degene rative endpla te change s. C2-C3 level has no disc hernia tion stenos is or neural forame n narrow ing. C3-C4 level has has no disc hernia tion stenos is or neural forame n narrow ing. The right facet joint is mildly degene rative . C4-C5 level has a mild disc bulge withou t disc hernia tion. Minima l stenos is. There are mild uncove rtebra l joint osteop hytes bilate rally the right facet joint is degene rative . Mild to modera te right and no left neurof oramen narrow ing. 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 The ventra l subara chnoid space is efface d. No cord compre ssion. There are uncove rtebra l joint osteop hytes and mild degene rative facet arthro janeth bilate rally. Modera te right and severe left neurof oramin al narrow ing. C6-C7 level has a small centra l hernia sirena disc. No stenos is or neural forame n narrow ing. C7-T1 level has no disc hernia tion, stenos is or neural forami nal narrow ing. The major vascul ar flow voids are intact . The prever tebral and parave rtebra l soft tissue s are within normal limits . IMPRES AVELINO: The cervic al cord is normal . Multip le levels of cervic al spondy losis as descri bed above. Electr onical ly Signed By: Jesus Noonan MD [address] [facility] ([facility]) [address], [place], [address], 09/25/2024 10:07:46 09/25/19 25 09/25/2024 XR, lumba r spine , 2 view http:/ [email or web address] ?Encry pted=s hAaTro YD8dLq bEUv6g %2BXZw aYqtaq 0bqfl% 2Fg9IQ a4ajBk vP9nXo QUaueC m3YtLR FvZlgJ JJ8mAn HZtai3 4n6193 AC0Kqb 3mCUKK hKiQtr MwF INTERFACE [facility] [address], [place], [address], 09/25/2024 13:37:20 09/25/19 25 09/25/2024 XR, lumba r spine , 2 view http:/ [email or web address] ?Encry pted=s hAaTro YD8dLq bEUv6g %2BXZw aYqtaq 0bqfl% 2Fg9IQ a4ajBk vP9nXo QUaueC m3YtLR FvZlgJ JJ8mAn HZtai3 5w3408 AC0Kqb 3mCUKK hKiQtr MwF INTERFACE [facility] [address], [place], [address], 09/25/2024 13:37:22 12/25/19 25 12/24/2024 XR, knee, 4 or more view http:/ [email or web address] ?Encry pted=s hAaTro YD8dLq bEUv6g %2BXZw aYqtaq 0bqfl% 2Fg9IQ a4ajBk vP9nXo QUaueC m3YtLR FvZlgJ JJ8mAn HZtai3 9b5718 AC0KqY 3qGV6G kKiQtr MwF INTERFACE [facility] [address], [place], [address], 12/24/2024 16:44:20 12/25/19 25 12/24/2024 XR, knee, 4 or more view http:/ [email or web address] ?Encry pted=s hAaTro YD8dLq bEUv6g %2BXZw aYqtaq 0bqfl% 2Fg9IQ a4ajBk vP9nXo QUaueC m3YtLR FvZlgJ JJ8mAn HZtai3 2d1219 AC0KqY 3qGV6G kKiQtr MwF INTERFACE [facility] [address], [place], [address], 12/24/2024 16:44:22 01/30/20 25 01/29/2025 XR, elbow , 3 or more view http:/ [email or web address] ?Encry pted=s hAaTro YD8dLq bEUv6g %2BXZw aYqtaq 0bqfl% 2Fg9IQ a4ajBk vP9nXo QUaueC m3YtLR FvZlgJ JJ8mAn HZtai3 1r0488 AC0Kla 36AVaO nKiQtr MwF INTERFACE [facility] [address], [place], [address], 01/29/2025 10:23:04 01/30/20 25 01/29/2025 XR, elbow , 3 or more view http:/ [email or web address] ?Encry pted=s hAaTro YD8dLq bEUv6g %2BXZw aYqtaq 0bqfl% 2Fg9IQ a4ajBk vP9nXo QUaueC m3YtLR FvZl [facility] HZtai3 2a9117 AC0Kla 36AVaO nKiQtr MwF INTERFACE [facility] [address], [place], [address], 01/29/2025 10:23:06 01/30/20 25 01/29/2025 XR, wrist , 3 or more view http:/ [email or web address] ?Encry pted=s hAaTro YD8dLq bEUv6g %2BXZw aYqtaq 0bqfl% 2Fg9IQ a4ajBk vP9nXo QUaueC m3YtLR [address] HZtai3 5h4859 AC0Kla 36AV6S nKiQtr MwF INTERFACE [facility] [address], [place], [address], 01/29/2025 10:41:09 01/30/20 25 01/29/2025 XR, wrist , 3 or more view http:/ [email or web address] ?Encry pted=s hAaTro YD8dLq bEUv6g %2BXZw aYqtaq 0bqfl% 2Fg9IQ a4ajBk vP9nXo QUaueC m3YtLR FvZlKindred [facility]8[place] HZtai3 0y4611 AC0Kla 36AV6S nKiQtr MwF INTERFACE [facility] [address], [place], [address], 01/29/2025 10:41:11 Result Notes Documentation Provider Name and Address Organization Details Recorded Time Mri, Cervical Spine, W/o Contrast : [facility] Accession Number: [id number] Patient Name: Oksana Denise Date of : 1950 Date of Exam: 09-22-2024 Referring Physician: Nilda West [facility] [address] [place], [place] [address] Exam: MR Cervical Spine (C-) CPT 33187 Room Description: [facility] 1.5 MRI of the cervical spine without contrast. HISTORY: Neck pain. Bilateral arm pain. COMPARISON: None. FINDINGS: The cervical cord appears normal in caliber and signal intensities. Coronal localizer shows a mild levoscoliosis of cervical spine which could be positional or due to muscle spasm. On the sagittal images, there is a mild anterolisthesis of C4 over C5 and a mild retrolisthesis of C5 over C6. No vertebral body fracture is seen. The bone marrow signals are within normal limits. Disc desiccation is seen diffusely. C5-C6 level has anterior osteophytes, disc space narrowing and mild degenerative endplate changes. C2-C3 level has no disc herniation stenosis or neural foramen narrowing. C3-C4 level has has no disc herniation stenosis or neural foramen narrowing. The right facet joint is mildly degenerative. C4-C5 level has a mild disc bulge without disc herniation. Minimal stenosis. There are mild uncovertebral joint osteophytes bilaterally the right facet joint is degenerative. Mild to moderate right and no left neuroforamen narrowing. C5-C6 level has a mild diffuse posterior osteophyte/disc bulge complex. The ventral subarachnoid space is effaced. No cord compression. There are uncovertebral joint osteophytes and mild degenerative facet arthropathy bilaterally. Moderate right and severe left neuroforaminal narrowing. C6-C7 level has a small central herniated disc. No stenosis or neural foramen narrowing. C7-T1 level has no disc herniation, stenosis or neural foraminal narrowing. The major vascular flow voids are intact. The prevertebral and paravertebral soft tissues are within normal limits. IMPRESSION: The cervical cord is normal. Multiple levels of cervical spondylosis as described above. Electronically Signed By: Jesus West, PRODUCTION OPERATIONS INSPECTOR [address], [place], [address], [place] - [facility] 09/25/2024 10:07:46 Xr, Lumbar Spine, 2 View : [email or web address] ncrypted=khQsQayPI0hZjzROz 6g%8UCYywIywju1wbtl%2Fg9IQ f7ylYalT7cRiOCmtzJc8RkVUEw SrlSYE3qTvQQqxm53z7263YP5J dh7qVXKPyBaBidBoA Not Available [facility] 09/25/2024 13:37:21 Xr, Lumbar Spine, 2 View : [email or web address] ncrypted=gsUxLmuGY5qZzaTQc 6g%7TGVzxRktug5khtz%2Fg9IQ h2tyVixZ2sAsKHjljSp3KkFTLk ValBGT7fKcPFtmc25h4534WA7A yt9yYHFUzFoPkwCrI Not Available [facility] 09/25/2024 13:37:23 Xr, Knee, 4 Or More View : [email or web address] ncrypted=paBnJajXD0xCfzOSo 6g%5USNxgBrymq6ssaz%2Fg9IQ u5ghExfB6sYuNBhohGh7OaHLBz LlxBWC9hUpCVoyy57r1336IA0M oA9jNS2YyKlHzsQkA Not Available [facility] 12/24/2024 16:44:21 Xr, Knee, 4 Or More View : [email or web address] ncrypted=wwJkAfxPS5yVteSQb 6g%6QRDjiYwtoo4dwsd%2Fg9IQ l8ddJotC6tFxEOkicIr3NxIOYq AytOLV9bJfOSnyj34y6936MC3F jM8tBU9ZvTbVhtDuN Not Available [facility] 12/24/2024 16:44:22 Xr, Elbow, 3 Or More View : [email or web address] ncrypted=bnYzCzaUX7lJnmOYq 6g%7YUGpqEivrw4yvzd%2Fg9IQ f2zlUikU6bDmBMgnoQe9TaWJZp RugLZR5zTpTZufx17e5967SI8A pq96KIxMoTkNwlSjW Not Available [facility] 01/29/2025 10:23:05 Xr, Elbow, 3 Or More View : [email or web address] ncrypted=lvCjAvvKV0oMshNWv 6g%1JXTtyCrqkv7qmrk%2Fg9IQ g8grRhaS8pLmJVtwwJb2BzCYGi IwvUDW2bEkVRwat08s9928IX3B kb24CMnAuZoUljJfM Not Available [facility] 01/29/2025 10:23:06 Xr, Wrist, 3 Or More View : [email or web address] ncrypted=ucFwKffEL1pBmvUPj 6g%5YQTpuSxmgm2achl%2Fg9IQ w1ojHugY3jFfALywiPq9OnLKKt CksBSG8tWbDPeoy37k3327RR6W ep49EE0CuCqZasIwO Not Available [facility] 01/29/2025 10:41:10 Xr, Wrist, 3 Or More View : [email or web address] ncrypted=goTgSoiVK7dFfiTKe 6g%2KWMzkShaac6eubj%2Fg9IQ n7lgDewH4eGtVEbrcDq9QzLMFa NgkDQD2nOrUTtyt55s0609UO9I de62EB5UzYzClhUwH Not Available [facility] 01/29/2025 10:41:11 Problems Name Problem SNOMED Code Status Onset Date Resolution Date Notes Provider Name and Address Organization Details Recorded Time No complaints 936417361 Active Status: 'I'; Not Available [facility] 09:15:35 Lumbago with sciatica 784567018 Active 2024 INGRID FRY [facility] 5 15:21:56 Pain of knee region 2043292816 Active 2024 Rocío Begumalta [facility] 5 16:36:46 Closed fracture of intracapsu lar section of femur 51163981 Active 2016 Problem Code: S72.012D ; Problem Code Type: ICD-10; Status: 'A'; Not Available [facility] 4 11:27:52 Problem Notes None recorded. Procedures Surgical History Date Name Laterality Status Provider Name and Address Organization Details Recorded Time 12/24/2024 Sports Knee 4&1 completed Ja Rosa PA-C [address] [place] [address] [address], [place], [address], [facility] 12/24/2024 17:02:34 Imaging Results None recorded. Procedure Notes None recorded. Medical Equipment None Reported. Allergies Allergen ID Allergen Name Allergen Category Reaction Reaction Severity Criticality Documentation Date Start Date Code Code System Note Provider Name and Address Organization Details Recorded Time 372357 clindamyc in Not available Not available Not available Not available 12/24/2024 2582 RxNorm Rocío Estradata [facility] 5 16:32:36 53766 morphine sulfate medicatio n Not available Not available Not available 11/13/20232013 29465 RxNorm Rocío Estradata [facility] 5 16:32:47 Medications Name Sig Start Date Stop Date Status Note LastModified by Organization Details LastModified Time celecoxib 200 mg capsule TAKE 1 CAPSULE BY MOUTH ONCE DAILY NEEDED FOR PAIN TAKE WITH FOOD. DO NOT TAKE ADDITIONA L NSAIDS 01/29 completed Not Available Not Available Not Available amoxicillin 500 mg capsule TK FOUR CS PO 1 HOUR B DAPP 01/29 completed Not Available Not Available Not Available furosemide 40 mg tablet TAKE 1 TABLET BY MOUTH TWICE A DAY 01/29 completed Not Available Not Available Not Available cefpodoxime 200 mg tablet TAKE 1 TABLET BY MOUTH TWICE DAILY FOR 7 DAYS 01/29 completed Not Available Not Available Not Available cefpodoxime 100 mg tablet TAKE 1 TABLET BY MOUTH EVERY 12 HOURS FOR 5 DAYS. active Not Available Not Available No t Available nystatin 100,000 unit/gram topical ointment 01/29 completed Not Available Not Available Not Available meloxicam 15 mg tablet TAKE 1/2 OF A TABLET BY MOUTH DAILY. 01/29 completed Not Available Not Available Not Available alendronate 70 mg tablet PLEASE SEE ATTACHED FOR DETAILED DIRECTION S 01/29 completed Not Available Not Available Not Available trimethopri m 100 mg tablet TAKE 1 TABLET (100 MG TOTAL) BY MOUTH DAILY. FOR UTI PROPHYLAX IS 01/29 completed Not Available Not Available Not Available spironolact one 25 mg tablet TAKE 1 TABLET BY MOUTH 1 TIME EACH DAY. active Not Available Not Available No t Available meloxicam 7.5 mg tablet TAKE 1 TABLET BY MOUTH ONCE A DAY 01/29 completed Not Available Not Available Not Available methocarbam ol 750 mg tablet Take 1 tablet as needed by oral route at bedtime, for muscle spasms. 01/29 completed Not Available Not Available Not Available dextroamphe tamine-amph etamine ER 20 mg 24hr capsule,ext end release TAKE 1 CAPSULE BY MOUTH TWICE A DAY *INSURANC E LIMITS TO 30 DAY SUPPLY* active Not Available Not Available No t Available calcitonin (salmon) 200 unit/actuat ion nasal spray USE 1 SPRAYS IN NOSTRIL DAILY(ALT ERNATE SIDES) FOR PAIN RELIEF DUE TO COMPRESSI ON FRACTURE active Not Available Not Available No t Available baclofen 10 mg tablet TAKE 1 TABLET BY MOUTH THREE TIMES A DAY 01/29 completed Not Available Not Available Not Available pantoprazol e 40 mg tablet,amado yed release TAKE 1 TABLET BY MOUTH TWICE A DAY active Not Available Not Available No t Available dextroamphe tamine-amph etamine 20 mg tablet TAKE 1 TABLET BY MOUTH TWICE DAILY 01/29 completed Not Available Not Available Not Available acetic acid 0.25 % irrigation solution USE 60 CC PER FLUSH FOUR TIMES DAILY NEEDED 01/29 completed Not Available Not Available Not Available gabapentin 300 mg capsule TAKE 1 CAPSULE BY MOUTH THREE TIMES A DAY active Not Available Not Available No t Available diclofenac sodium 75 mg tablet,amado yed release TAKE 1 TABLET TWICE A DAY BY ORAL ROUTE WITH MEAL(S), FOR NEEDED FOR PAIN. active Not Available Not Available No t Available furosemide 20 mg tablet TAKE 1 TABLET (20 MG TOTAL) BY MOUTH ONE TIME EACH DAY active Not Available Not Available No t Available lorazepam 1 mg tablet TAKE 1 TABLET BY MOUTH TWICE A DAY NEEDED FOR ANXIETY active Not Available Not Available No t Available cefuroxime axetil 500 mg tablet TAKE 1 TABLET BY MOUTH TWICE DAILY 01/29 completed Not Available Not Available Not Available albuterol sulfate HFA 90 mcg/actuati on aerosol inhaler INHALE 2 PUFFS EVERY 6 HOURS NEEDED 01/29 completed Not Available Not Available Not Available dextroamphe tamine-amph etamine ER 30 mg 24hr capsule,ext end release TAKE 1 CAPSULE BY MOUTH EVERY DAY IN THE MORNING 01/29 completed Not Available Not Available Not Available fluticasone propionate 50 mcg/actuati on nasal spray,suspe nsion SPRAY/KACEY LY 1 SPRAY IN EACH NOSTRIL DAILY. 01/29 completed Not Available Not Available Not Available amoxicillin 875 mg-potassiu m clavulanate 125 mg tablet TAKE 1 TABLET BY MOUTH EVERY 12 HOURS FOR 7 DAYS 01/29 completed Not Available Not Available Not Available oxycodone 5 mg tablet TAKE 1 TABLET BY MOUTH EVERY 4-6 HOURS NEEDED FOR POST-OPER ATIVE PAIN 01/29 completed Not Available Not Available Not Available dextroamphe tamine-amph etamine ER 25 mg 24hr capsule,ext end release TAKE 1 CAPSULE BY MOUTH EVERY MORNING 01/29 completed Not Available Not Available Not Available escitalopra m 10 mg tablet TAKE 1 TABLET BY MOUTH EVERY DAY 01/29 completed Not Available Not Available Not Available escitalopra m 20 mg tablet TAKE 1 TABLET BY MOUTH EVERY DAY active Not Available Not Available No t Available cyclobenzap rine 5 mg tablet TAKE 1-2 TABLETS BY MOUTH IN THE AFTERNOON AND 1-2 TABS AT BEDTIME NEEDED FOR MUSCLE SPASMS, PAIN 01/29 completed Not Available Not Available Not Available Euflexxa 10 mg/mL (mw 2.4-3.6 million) intra-artic ular syringe active Not Available Not Available Not Available Citracal active Not Available Not Avai lable Not Available oxycodone HCl-oxycodo ne-ASA 1-2 Q 6H PRN PAIN. 01/29 completed Statu s: 'Curr ent'; Not Available Not Available Not Available dextroamphe tamine sulfate 20 mg tablet TAKE 1 TABLET BY MOUTH EVERY EVENING 01/29 completed Not Available Not Available Not Available baclofen 5 mg tablet TAKE 2 TABLETS BY MOUTH IN THE MORNING, 1 TABLET MIDDAY, AND 1 TABLET IN THE EVENING active Not Available Not Available No t Available Vitals Date Recorded Body height Body mass index (BMI) Body weight Provider Name and Address Organization Details Last Updated DateTime 12/24/2024 154.94 cm 26.3 kg/m2 20324.34 g Rocío Ayon [facility] 12/24/2024 16:36:17 Date Recorded Body height Body mass index (BMI) Body weight Provider Name and Address Organization Details Last Updated DateTime 01/29/2025 154.94 cm 25.5 kg/m2 18278.97 g GABRIEL EDEN [facility] 01/29/2025 10:13:52 Social History None recorded. Functional Status None recorded. Mental Status None recorded. Family History Nothing Reported. Medical History No medical history recorded. Gynecological HistoryNo gynecological history recorded. Obstetrics History GPAL:G 0 P 0 0 0 0 Past Encounters Encounter ID Performer Location Encounter Start Date Encounter Closed Date Diagnosis/Indication Diagnosis SNOMED-CT Code Diagnosis ICD10 Code Diagnosis Note [id number] Nilda MIROSLAVA West [facility] [address] [place] [address] 09/17/2024 10:09:52 09/30/2024 13:43:57 Cervical radiculopathy 91648242 M54.12 Degenerati on of cervical intervertebral disc 73497806 M50.30 [id number] Nilda West CNP [facility] [address] [place] [place] [address] 09/25/2024 13:24:02 10/07/2024 15:34:19 Low back pain 067433389 M54.59 Lumbar spondylosis 06566 0009 M47.816 Cervical spondylosis 387 263035 M47.567 [id number] Ja Rosa PA-C [facility] [address] [place] [address] 12/24/2024 16:23:57 01/08/2025 07:33:03 Pain of knee region 3682013356 M25.561 Osteoarthr itis of right knee joint 6053822595 72930 M17.11 [id number] MD [facility] [address] [place] [address] 01/29/2025 09:52:35 02/10/2025 11:17:17 Closed fracture of neck of radius 18921654 S52.135A Pain of left wrist 95014 52254 83910 M25.532 Osteoarthr itis of metacarpophalangeal joint 113062083 M19.042 Health Concerns Section Related Observation LastModified by Organization Detai ls LastModified Time None Recorded Concern Status LastModified by Organization Details LastModified Time None Recorded Advance Directives Directive None Recorded Payers Insurance Date Sequence Insurance Name Policy Number Policy Ward Covered Member ID Ward Member ID Guarantor Name 03/01/2025 1 [facility] [employer] (PPO) [id number] Harsha Denise [id number] Oksana Denise Notes Date Note Type Note Provider Name and Address Organization Details Recorded Time 09/17/2024 text/html I am seeing the patient under the general supervision of Dr. Oh who was available but did not see the patient. HPI: 74-year-old woman presents for evaluation neck pain. Neck pain for years. Has been using Bengay and ibuprofen with some relief. Baclofen and gabapentin with some relief as well. Went to [facility] who took x-rays. Also went to [facility] who gave her calcitonin for fracture. History of osteoporosis. Reports handwriting changes, poor balance, dropping items. Intermittent tingling to the right fingers index to small finger. RADICULITIS: Right arm index middle ring small fingers PFMSH and ROS have been reviewed, updated, and it is located in the patient's chart. PRIOR TREATMENTS/MEDICATIONS : Meloxicam (no help), cyclobenzaprine (no help), baclofen (helpful at first, not so much anymore), gabapentin (helpful) WORK STATUS: MSK EXAM: examination of the cervical spineTransitions: Patient able to arise from a seated position without difficulty.Gait: WNL, no limps detected, no assistive device. Heel-to-toe walk difficult due to poor balanceInspection:--- Erythema - none--- Edema - none--- Deformity - none--- Posture - kyphoticTenderness:--- Spinous processes - none--- Paraspinal musculature - noneROM:--- Cervical spine: 75% normal--- Full ROM to shoulders, elbows, wrists, digitsExtremity strength:--- LUE 5/5 - with exception of weak triceps extension and finger adduction/abduction /5--- RUE 5/5 - with exception of weak triceps extension and finger adduction/abduction /5Neurologic:--- 2+ DTRs--- Positive sensation to light moving touchSpecial tests:--- Negative Anderson bilaterally IMAGING:- 2 views C-spine from [facility] dated 06/03/2024 independently reviewed by myself reveals reversal of normal lordosis and diffuse spondylosis. Grade 1 spondylolisthesis C4-C5. Severe disc space narrowing C5-C6 with inflammatory changes. IMPRESSION: Cervical DDD C5-C6, cervical radiculopathy right arm, rule out myelopathy PLAN: Findings discussed with the patient today.-Ordered cervical spine MRI to rule out myelopathy due to handwriting changes, poor balance. Also has history of cancer Medications: Diclofenac to replace meloxicam. Methocarbamol to replace baclofen. Medication education reviewed.- Recommend physical therapy for cervical stabilization- Do not see evidence of cervical spine fracture, and calcitonin spray is contraindicated with history of cancer. Patient advised to stop use and consult with PCP.- Continue alendronate sodium for osteoporosis as prescribed. FOLLOW UP: MRI review Speech recognition level vial inspector software was used to create portions of this document. An attempt at proofreading has been made to minimize errors. Please call for corrections. Nilda West, PRODUCTION OPERATIONS INSPECTOR [address], [place], [address], [facility] 09/17/2024 11:16:52 09/25/2024 text/html I am seeing the patient under the general supervision of Dr. Oh who was available but who did not see the patient. HPI: 74-year-old woman presents for evaluation low back pain. Onset several years. Progressively worsening. Has occasional shooting pain to the right anterior thigh. Most comfortable position is standing. Denies bowel or bladder or saddle anesthesia. Also here to discuss cervical spine MRI results. Neck pain for years. Has been using Bengay and ibuprofen with some relief. Baclofen and gabapentin with some relief as well. Went to [facility] who took x-rays. Also went to [facility] who gave her calcitonin for fracture. History of osteoporosis. Reports handwriting changes, poor balance, dropping items. Intermittent tingling to the right fingers index to small finger. RADICULITIS: right anterior thigh PFMSH and ROS have been reviewed, updated, and it is located in the patient's chart. PRIOR TREATMENTS/MEDICATIONS : Meloxicam (no help), diclofenac (not helpful), cyclobenzaprine (no help), baclofen (helpful at first, not so much anymore), gabapentin (helpful) MSK EXAM: examination of the lumbar spineTransitions: Patient able to arise from a seated position without difficulty.Gait: WNL, no limps detected, no assistive device. Able to balance on heels and tip toes.Inspection:--- Erythema - none--- Edema - none--- Deformity - none--- Posture - neutralTenderness:--- Spinous processes - none--- Paraspinal musculature - noneROM:--- Lumbar spine: 75% normal--- Full ROM to hips, knees, anklesLower extremity strength:--- LLE 5/5--- RLE 5/5Neurologic:--- 2+ DTRs--- Positive sensation to light moving touchSpecial tests:--- Negative SLR bilaterally--- Negative ankle clonus bilaterally IMAGING: X rays ordered, obtained, and independently reviewed at [facility] today. 2 views lumbar spine reveals mild/moderate lumbar scoliosis. Normal lordosis. Diffuse spondylosis facet arthropathy. The spaces overall well-preserved. C-spine MRI dated 09/22/2024 independently reviewed by myself reveals diffuse degenerative changes. Disc spaces overall well-preserved, with disc degeneration C5-C6. C5-C6 mild disc bulge severe left foraminal narrowing. Overall no significant central stenosis, no nerve impingement. Cervical cord is normal. IMPRESSION: Cervical spondylosis, lumbar spondylosis PLAN: Findings discussed with the patient today.- Recommend physical therapy for lumbar stabilization.-Discuss ed referral to [facility] to evaluate for injection therapy. We also discussed an EMG for numbness/tingling in the fingers. she declined Will try Celebrex instead. Medication education reviewed. Follow-up after physical therapy for low back recheck. If no improvement, will order lumbar spine MRI FOLLOW UP: 8-10 weeks Speech recognition level vial inspector software was used to create portions of this document. An attempt at proofreading has been made to minimize errors. Please call for corrections. Time spent 45 minutes. Comprehensive new evaluation, x-rays, MRI independent review. Nilda West, PRODUCTION OPERATIONS INSPECTOR [address] [facility] [address], [place], [address], [facility] 09/25/2024 16:56:55 12/24/2024 text/html I am seeing the patient today under the supervision of Dr. Rosa who was available but who did not see the patient. HPI:Patient is a 74-year-old female who presents to the office today with complaint of right knee pain. Has been having right knee pain for quite some time which has been on and off but over the last 2 months has progressively gotten worse. She does not have any injuries or falls that contributed to the increased pain. Does have previous history of left total knee replacement done at an outside facility in 2014 has been utilizing diclofenac as needed for pain relief. Patient has increased pain with prolonged standing and walking, getting up from seated position, squatting and kneeling as well as going up and down stairs. Pain primarily located on the anterior aspect of her knee. She previously did do cortisone a few years ago but did not see much benefit from it. States that she has not done any physical therapy and does not have time for it because she is dealing with her son who currently is battling ALS. Past family, medical, social history and review of systems has been reviewed, updated and is located in the patient s chart. Examination: Well-appearing 74-year-old female in no acute distress. She is alert and oriented x 3. Ambulates with a symmetric gait. Right knee reveals no erythema, warmth, ecchymosis, swelling. There is mild tenderness over the medial joint line. No tenderness over the lateral joint line. Range of motion of the knee from 0-120 degrees. There is crepitance noted. Knee is fairly stable to valgus and varus stress testing. Knee strength 5/5 against resistance with flexion and extension. Negative Chela test. Negative Farideh's maneuver. Calf is soft and nontender. 4 views of the right knee obtained and independently reviewed in the office today reveals mild joint space narrowing of the medial joint compartment. There is subchondral sclerosis as well as mild osteophyte formation. Increased degenerative changes noted of the patellofemoral joint. No fracture. Impression:Right Knee osteoarthritis primarily patellofemoral Plan:We discussed the role of conservative management including medications, physical therapy, injection and bracing. Although patient has not had any benefit previously from cortisone injection she was willing to try this today because of increased pain in her knee. Please see procedure note for injection. We did discuss trying possible gel injections which she could be a good candidate for. Authorization for gel of the right knee sent today. Ultimately wants to forego physical therapy as she is constantly traveling and has many appointments for her son. Once gel is approved we will have her come back for this. Will continue with usfs-ilb-nezzurn medications as needed for pain relief. At this time all patient questions and concerns were answered today. Ja Rosa PA-C [address], [place], [address], [facility] 12/24/2024 17:02:59 OBGyn Episode No OBEpisode recorded.
--- OUTSIDE RECORDS SUMMARY | 2025-03-20 12:30 | XMS_ITS | Continuity of Care Document ---
Author Organization [facility] [address] [place] [address] Phone [phone] Care Team Providers Care Extrusion Press Supervisor Name Role Phone Willian Calero MD Care Team Information Timber Framer Helper [phone] Problems Active Problems Provider Date Osteoporosis Kim [...] Social History Type Date Description Comments Sex Female Sex Unknown Lives With Spouse Work Status Retired Tobacco Use Start: Unknown End: Quit ETOH Use Consumes 1 glass of wine per day Allergies and adverse reactions Active Allergies Criticality Reaction Severity Comments Date Clindamycin Unable to assess criticality 12/02/2024 Medications Active Medications SIG Qnty Indications Order ing Provider Date Ljllurzchwqg679siq/2.2 4ML Solution Pen-Inject inject 20 mcg( 0.08 ml) subcutaneously once daily 6.72ml M81.0 Kim Jennings M.D. 02/10/2025 Cyclobenzaprine HCL5mg Tablets Unknown Kwcbeiktb6df Tablets Willian Calero MD Amphetamine-Dextroamph et ER30mg Caps ER 24HR Take 1 Capsule By Mouth Every Day In The Morning Willian Calero MD Diclofenac Kpcrhk41ts Tablets DR Take 1 Tablet Twice A Day By Oral Route With Meal(S), For as Needed For Pain. Unknown Escitalopram Ioepeqj67ot Tablets Take 1 Tablet By Mouth Every Day Willian Calero MD Emiyyoqoyatx773hv Tablets Take 1 Tablet (100 MG Total) By Mouth Daily. For UTI Prophylaxis Unknown Gvllrngrkfzcqz29bc Tablets Take 1 Tablet By Mouth 1 Time Each Day prn Unknown Uhuievxj731886Iwja/GM Ointment Apply Topically To Affected Area 2 (Two) Times A Day. Unknown Pantoprazole Smdjoq85jw Tablets DR Take 1 Tablet By Mouth Twice A Day Willian Calero MD Prfvvfrnqx479qs Capsules Take 1 Capsule By Mouth Three Times A Day Willian Calero MD Acetic Acid0.25% Solution Use 60 cc Per Flush Four Times Daily as Needed Aman Vega MD Grakkqcwgng747zj Capsules TK Four CS PO 1 Hour B Dapp Unknown Albuterol Sulfate KJX692(90Base) mcg/Act Aerosol Inhale 2 Puffs Every 6 Hours as Needed Willian Calero MD Multivitamin Womens 50+ AdvancedTablets 1 by mouth every day Kodak Jennings M.D. Citracal Calcium+D Slow Pnbzsvg617-94-230xk-gm -Unit Tablets ER 24HR 1 by mouth every day Loree Jennings M.D. Vital Signs Date Vital Result Comment 12/02/2024 9:36am BP Systolic 146 mmHg BP Diastolic 70 mmHg Heart Rate 94 /min Height 61.75 inches 5'1.75 Weight 145.50 lb BMI (Body Mass Index) 26.8 kg/m2 Results Test Acquired Date Facility Test Result H/L Range N ote PTH, Intact 02/07/2025 [facility] PTH, Intact 42 pg/mL 15-65 Comp. Metabolic Panel (14) 12/02/2024 [facility] Glucose [...] D deficiency has been defined by the Valentine of Medicine and an Endocrine Society practice guideline as a level of serum 25-OH vitamin D less than 20 ng/mL (1,2). The Endocrine Society went on to further define vitamin D insufficiency as a level between 21 and 29 ng/mL (2). 1. IOM (Valentine of Medicine). 2010. Dietary reference intakes for calcium and D. [place]: The National Academies Press. 2. Elina MF, Mitul NC, Angel METZGER, et al. Evaluation, treatment, and [...] measured NTx value is <or=38 nM BCE/mM ELECTROMATIC TYPIST, or NTx has decreased >or=30% from baseline.[1] [...]
--- OUTSIDE RECORDS SUMMARY | 2025-03-20 12:30 | XMS_ITS ---
[facility] Care Team Organization Name Specialty Phone Email Start Date End Da lig[facility] 03/18/2021 03/18/2021
--- OUTSIDE RECORDS SUMMARY | 2025-03-20 12:30 | XMS_ITS | Clinical Summary ---
Author Organization [facility] Address [address] [place] [address] Phone Care Team Providers Care Career Portals Teacher Name Role Phone Barbara Child MD Primary Care Provider [phone] Allergies Active Allergy Reactions Criticality Noted Date Comments Clindamycin 10/17/2024 Medications amphetamine-dext roamphetamine XR (ADDERALL XR) 30 mg 24 hr capsule Take 1 capsule (30 mg total) by mouth 1 (one) time each day in the morning. Do not crush or chew. Active escitalopram (LEXAPRO) 20 mg tablet Take [...] for anxiety. 0.5 to 1mg a day Active spironolactone (ALDACTONE) 25 mg tablet Take 1 tablet (25 mg total) by mouth 1 (one) time each day. 30 each 11 5 10/17/19 26 Active furosemide (LASIX) 20 mg tabletIndication s:Leg swelling Take 1 tablet (20 mg total) by mouth 1 (one) time each day. 60 each 2 5 Active Active Problems Problem Noted Date Diagnosed Date Newly recognized murmur 10/16/2024 Encounters Date Type Department Care Team Description 02/18/2025 9:10 AM EDT Office Visit [facility] Cardiology [facility] [address] [place] [address] Deidre Foy NP Leg swelling (Primary Dx) from Last 3 Months Surgical History Surgery Date Site/Laterality Comments BLADDER [...] Sign Reading Time Taken Comments Blood Pressure 126/70 02/18/2025 9:16 AM EDT Pulse 78 02/18/2025 9:16 AM EDT Temperature - - Respiratory Rate - - Oxygen Saturation 98% 02/18/2025 9:16 AM EDT Inhaled Oxygen Concentration - - Weight 63.5 kg (140 lb) 02/18/2025 9:16 AM EDT Height 154.9 cm (5' 1 ) 02/18/2025 9:16 AM EDT Body Mass Index 26.45 02/18/2025 9:16 AM EDT Plan of Treatment Upcoming Encounters Date Type Department Care Team (Late st Contact Info) Description 03/26/2025 2:30 PM EDT Ancillary Procedure [facility] Cardiology [facility] [address] [place] [address] 04/07/2025 8:30 AM EDT Ancillary Procedure [facility] - [address] [place] [address] 08/15/2025 7:40 AM EST Office Visit [facility] Cardiology [facility] [address] [place] [address] [place] [address] Deidre Foy NP [address] [place] [address] [place] [address] Health Maintenance Due Date Last Done Comments Breast Cancer Screening 1950 Cholesterol Screening (Lipid Panel) 08/19/2022 Colorectal Cancer Screening: Colonoscopy 08/19/2022 Depression Screening 08/19/2022 Falls Risk Assessment 08/19/2022 Hepatitis C Screening 08/19/2022 Osteoporosis Screening (Bone Density Screening) 08/19/2022 Social Influencers of Health Screening 08/19/2022 COVID-19 Vaccine (9 - Moderna risk season) 2024 06/10/2024, 06/03/2023, 01/19/2023, Additional history exists Influenza Vaccine (#1) 2025 , 06/03/2023, 06/02/2022, Additional history exists DTaP,Tdap,and Td Vaccines (3 - Td or Tdap) 12/01/2031 11/30/2021, 11/03/2008 Pneumococcal Vaccine: 50+ Years Completed 04/20/2023, 04/20/2017, 06/16/2014 Zoster Vaccines Completed 04/20/2023, 01/09, 08/25/2019 RSV Immunization Adult Patients Completed 06/23/2023 HIB Vaccines Aged Out No longer eligi [...] age to complete this topic Insurance MEDICARE [facility] Care Teams Career Portals Teacher Relationship Specialty Start Date End Date Barbara Child MD [address] [place] [address] PCP - General Internal Medicine 02/04/25
--- OUTSIDE RECORDS SUMMARY | 2025-03-20 12:30 | XMS_ITS | Encounter Summary ---
Author Organization [facility] Address [address] [place] [address] Care Team Providers Care Dietist Name Role Phone Pallavi Quesada SEARCH CONSULTANT Primary Care Provider [phone] Reason for Visit * Reason Comments Appointment Encounter Details Date Type Department Care Team (Late st Contact Info) Description 12/28/2020 Telephone [facility] at [address] [address] Referring, No Appointment Social History [...] on filedocumented in this encounter Care Teams Dietist Relationship Specialty Start Date End Date Pallavi Quesada, MARCELLA [address] [place] [id number] PCP - General 12/29/20 documented as of this encounter
== END 2025-03-20 12:57 | disposition home or self-care (01) ==
LOC: HO.HMCFM 12:06
PROVIDERS: PCP Internal Medicine; Visit Provider Nurse Practitioner Family
DX: N39.0 Urinary tract infection, site not specified (principal); Z93.6 Other artificial openings of urinary tract status; Z09 Encounter for follow-up examination after completed treatment for conditions other than malignant neoplasm; Z78.9 Other specified health status; Z85.51 Personal history of malignant neoplasm of bladder

== ENCOUNTER 2025-03-20 12:05 | Outpatient (REF) | payer OTHER, SELFPAY ==
[2025-03-20 16:25] LABS: Appearance Urine Clear; Glucose Urine UA Negative (Negative); PH 7.0 (5.0-9.0); Specific Gravity - Urine <= 1.005 (1.005-1.025); UMIC TRIGGER UACC YES
[2025-03-20 16:31] LABS: UACC Culture Trigger YES
== END 2025-03-20 12:06 | disposition home or self-care (01) ==
LOC: HO.LAB 12:05
PROVIDERS: PCP Internal Medicine; Visit Provider Nurse Practitioner Family
DX: R30.0 Dysuria (principal); Z09 Encounter for follow-up examination after completed treatment for conditions other than malignant neoplasm; Z78.9 Other specified health status; Z93.6 Other artificial openings of urinary tract status; Z85.51 Personal history of malignant neoplasm of bladder; N39.0 Urinary tract infection, site not specified
CPT/HCPCS: 81001; 81003; 87086; 87088; 87186

== ENCOUNTER 2025-04-07 09:40 | Outpatient (REF) | payer OTHER, SELFPAY ==
--- OUTSIDE RECORDS SUMMARY | 2025-04-07 08:30 | XMS_ITS | Encounter Summary ---
Author Organization [facility] Address [address] [place] [address] Care Team Providers Care Store Product Demonstrator Name Role Phone Barbara Child MD Primary Care Provider [phone] Reason for Visit * Imaging (Routine) - Authorized Specialty Diagnoses / Procedures Referred By Hafsa smith Referred To Contact Diagnoses Leg swelling Procedures Vascular US duplex lower extremity venous insufficiency bilateral Deidre Foy NP [place] [address] Phone: tel: fax: [facility] Referral ID Status Reason Start Date Expiration Date V isits Requested Visits Authorized [id number] Authorized 02/18/2025 02/18/2026 1 1 Encounter Details Date Type Department Care Team (Late st Contact Info) Description 04/07/2025 8:30 AM EDT Ancillary Procedure [facility] [address] [place] [address] Leg swelling Social History Tobacco Use Types Packs/Day Years [...] on file documented as of this encounter Plan of Treatment Upcoming Encounters Date Type Department Care Team (Late st Contact Info) Description 08/15/2025 7:40 AM EST Office Visit [facility] [address] [place] [address] [place] [address] Deidre Foy NP [address] [place] [address] [place] [address] Pending Results Name Type Priority Associated Diagnoses Date/Time Vascular US duplex lower extremity venous insufficiency bilateral Vascular Ultrasound Routine Leg swelling 04/07/2025 9:08 AM EDT documented as of this encounter Visit Diagnoses Diagnosis Leg swelling Swelling of limb documented in this encounter Care Teams Store Product Demonstrator Relationship Specialty Start Date End Date Barbara Child MD [address] [place] [address] PCP - General Internal Medicine 02/04/25 documented as of this encounter
--- OUTSIDE RECORDS SUMMARY | 2025-04-07 10:32 | XMS_ITS | Clinical Summary ---
Author Organization [facility] Address [address] [place] [address] Care Team Providers Care Nuclear Waste Process Operator Name Role Phone Unavailable Primary Care Provider [...]
--- OUTSIDE RECORDS SUMMARY | 2025-04-07 10:32 | XMS_ITS | Clinical Summary ---
Author Organization [facility] Address [address] [place] [address] Phone Care Team Providers Care Buffing Line Set Up Worker Name Role Phone Alina Lim MD, MPH Unavailable [phone] Willian Calero MD Primary Care Provider [phone]- [phone] Allergies Active Allergy Reactions Criticality Noted Date Comments Adhesive Rash Low 10/04/2023 Clindamycin Hcl Bleeding High 10/04/2023 Medications acetic acid 0.25% irrigationIndic ations:Urinary tract infection Irrigate with as directed as needed. To be used as directed for bladder irrigation 1000 mL 4 Active trimethoprim (TRIMPEX) 100 mg tabletIndicatio ns:Urinary tract infection TAKE 1 TABLET (100 MG TOTAL) BY MOUTH DAILY. FOR UTI PROPHYLAXIS 90 tablet 3 4 Active nystatin ointment Apply topically to affected area 2 (two) times a day. 30 g 2 5 Active Active Problems Problem Noted Date Diagnosed Date Urinary tract infection 03/29/2019 05/19/20 23 Bladder cancer 04/24/2018 05/19/2023 Malfunction of efferent segment of continent uri nary pouch 04/24/2018 05/19/2023 History of urinary diversion procedure 8 05/19/2023 Heart burn 04/24/2018 05/19/2023 Hay fever 04/24/2018 05/19/2023 Depression 04/24/2018 05/19/2023 Blood in urine 04/24/2018 05/19/2023 Nervousness 04/24/2018 05/19/2023 Anemia 04/24/2018 05/19/2023 Immunizations Immunization Administration Dates Next Due Pneumococcal conjugate PCV13 04/20/2017 Tdap 11/03/2008 Social History Tobacco Use Types Packs/Day Years Used Date Smoking Tobacco: Smoker, Current Status Unknown Tobacco Cessation:Ready to Q uit: Not Asked; Counseling Given: Not Answered Education Answer Date Recorded Are you interested in more education? Not on rafal e 02/17/2023 Are you concerned about learning? Not on file 02/17/2023 No 02/17/2023 No 02/17/2023 Digital Access Answer Date Recorded No 02/17/2023 No 02/17/2023 Reliable internet access at home? Not on file 02/17/2023 Device with a working camera? Not on file Comments Unknown Sex and Gender Information Value Date Recorded Sex Assigned at Not on file Legal Sex Female 11:59 AM EDT Gender Identity Not on file Sexual Orientation Not on file Last Filed Vital Signs Vital Sign Reading Time Taken Comments Blood Pressure 145/82 11/02/2023 2:44 PM EST Pulse 83 11/02/2023 2:44 PM EST Temperature 36.4 C (97.5 F) 11/02/2023 2:44 PM EST Respiratory Rate - - Oxygen Saturation 98% 11/02/2023 2:44 PM EST Inhaled Oxygen Concentration - - Weight 54.4 kg (120 lb) 06/28/2019 2:47 PM EDT Height 157.5 cm (5' 2 ) 06/28/2019 2:47 PM EDT Body Mass Index 21.95 06/28/2019 2:47 PM EDT Plan of Treatment Upcoming Encounters Date Type Department Care Team (Late st Contact Info) Description 10/10/2025 11:30 AM EST Follow-Up [facility] Urology [address] [place] [address] Spencer Sidhu MD [address] [place] [address] Health Maintenance Due Date Last Done Comments LIPID PANEL 1950 DEPRESSION SCREENING 1961 SMOKING Hx and SMOKELESS TOB ACCO SCREENING 1962 HEPATITIS C SCREENING 1967 ZOSTER VACCINES (1 of 2) 1968 COLOGUARD 1994 COLONOSCOPY 1994 COLORECTAL CANCER SCREENING 1994 FIT TEST 1994 FOBT 1994 SIGMOIDOSCOPY 1994 VIRTUAL COLONOSCOPY 1994 OSTEOPOROSIS SCREENING INITI AL (ONE-TIME) 2014 PNEUMOCOCCAL VACCINES (50+ y ears) (2 of 2 - PPSV23) 06/15/2017 04/20/2017 Adult Td,Tdap Booster 11/03/2018 11/03/2008 COVID-19 VACCINE (2023-2 5 season) 2024 RSV VACCINE (1 - 1-dose 75+ series) 2024 HEPATITIS A VACCINES Aged Out No long er eligible based on patient's age to complete this topic HIB VACCINES Aged Out No longer eligi ble based on patient's age to complete this topic MENINGOCOCCAL VACCINES (ACWY) Aged Out No longer eligible based on patient's age to complete this topic MENINGOCOCCAL VACCINES (B) Aged Out N o longer eligible based on patient's age to complete this topic Medical Devices Not on file Insurance MEDICARE A [employer] GIC PLUS PPO 2 KLETSEL [facility]HE [facility] E[facility] LÓPEZ Care Teams Buffing Line Set Up Worker Relationship Specialty Start Date End Date Willian Calero MD [address] [place] [address] PCP - General Internal Medicine 08/28/23 Alina Lim MD, MPH 131 [facility]. [address] [place] [address] [email or web address] 08/25/23 Additional Source Comments The information contained in this document represents components of the legal health record. It is not the complete legal health record.[facility]
--- OUTSIDE RECORDS SUMMARY | 2025-04-07 10:32 | XMS_ITS | Encounter Summary ---
Author Organization [facility] Address [address] [place] [address] Care Team Providers Care Ludlow Machine Operator Name Role Phone Pallavi Quesada ENTRY SPECIALIST Primary Care Provider [phone] Reason for Visit * Reason Comments Appointment Encounter Details Date Type Department Care Team (Late st Contact Info) Description 12/28/2020 Telephone [facility] at [address] [address] Referring, No Appointment Social History [...] on filedocumented in this encounter Care Teams Ludlow Machine Operator Relationship Specialty Start Date End Date Pallavi Quesada, MARCELLA [address] [place] [phone] PCP - General 12/29/20 documented as of this encounter
--- OUTSIDE RECORDS SUMMARY | 2025-04-07 10:32 | XMS_ITS | Data Portability ---
Author Organization [facility], [facility] [place] Address [address] [place] [address] Care Team Providers Care Cutter Operator Tile Name Role Phone LINN ZEPEDA Primary Care Provider Assessment Encounter Date Assessment Date Assessment LastModified by Organization Details LastModified Time 01/29/2025 01/29/2025 CC Fx L radius bone DOI ~ 3 weeks ago; wrist pain left HPI 74 y/o F had xrays done at [facility] due to persistent pain after accident with findings of fracture Date of onset/injury: 3 weeks ago Injury: left radius neck fracture ASTRID: fall from standing while dog walking Treatment: none Reports no other injury. No head injury. No prior fracture. Persistent pain with use especially left wrist level. No numbness or tingling. 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 Exam L UE skin intact, no swelling elbow-wrist, elbow motion guarded/painful but near full flex/ext and pronation/supinat ion about 50% full, wrist tender diffuse, no digit swelling Xrays ordered obtained reviewed by me today at [facility] left elbow three views fracture radial neck [...] if still painful - follow-up 5 weeks [email or web address] Not available 01/29/2025 13:04:23 Plan of Treatment [...] Cervical Stabiliz ation Program 2024 025 [email or web address] (Luis Daniel), [address], [place], [address], 5 13:43:58 Procedures None recorded . Surgeries None recorded . Imaging XR, elbow, 3 or more view - 315 left elbow 3v new pt 2024 [facility]25 [facility], [address], [place], [address], 5 11:17:17 XR, wrist, 3 or more view - 315 left wrist 3v new problem 2024 025 [facility], [address], [address], [place], [address], 5 11:17:17 XR, knee, 4 or more view - right knee rm 115 2024 025 [email or web address], [address], [address], [place], [address], 5 14:38:25 XR, lumbar spine, 2 view - 302 l spine 2v 2024 025 [facility], [address], [address], [place], [address], 5 15:34:19 MRI, cervical spine, w/o contrast - MRI C spine w/o contrast R/O myelopat hy + right arm radiculo janeth History of cancer 2024 025 [facility] ([facility]), [address], [place], [address], 13:43:57 Medication Orders celecoxi b 200 mg capsule 2024 025 [id number], [address] [place], [address], 5 10:22:19 diclofen ac sodium 75 mg tablet,d elayed release 2024 025 [id number], [address] [place], [address], 11:16:25 methocar bamol 750 mg tablet 2024 025 [facility], [address] [place], [address], 10:24:10 Patient TargetsNo targets recorded. Patient InstructionsNo [...] randy spine No observ ation record ed. [email or web address] Not Available 09/17 15:19:39 09/24/19 25 09/22/2024 MRI, cervi randy spine , w/o contr ast [facility] Access ion Number : [id number] Patidaiana t Name: Oksana Denise Record Number : [id number] Date of : 1949 Date of Exam: 2024 Referr ing Physic harish: Becky linda, Nilda [facility] [address] [facility] [place] [address] Exam: MR Cervic al Spine (C-) CPT 38605 Room Descri ption: Leonard Siem Espr 1.5 MRI of the cervic [...] C5-C6 level has a mild diffus e recreation engineer ior osteop hyte/d isc bulge comple x. [...] onical ly Signed By: Jesus Noonan MD [address] [facility] ([facility]) [address], [place], [address], 09/25/2024 10:07:46 09/25/19 25 09/25/2024 XR, lumba r spine , 2 view http:/ [email or web address] ?Encry pted=s hAaTro YD8dLq bEUv6g %2BXZw aYqtaq 0bqfl% 2Fg9IQ a4ajBk vP9nXo QUaueC m3YtLR FvZlgJ JJ8mAn HZtai3 3k2883 AC0Kqb 3mCUKK hKiQtr MwF INTERFACE [facility] [address], [place], [address], 09/25/2024 13:37:20 09/25/19 25 09/25/2024 XR, lumba r spine , 2 view http:/ [email or web address] ?Encry pted=s hAaTro YD8dLq bEUv6g %2BXZw aYqtaq 0bqfl% 2Fg9IQ a4ajBk vP9nXo QUaueC m3YtLR FvZlgJ JJ8mAn HZtai3 2q3907 AC0Kqb 3mCUKK hKiQtr MwF INTERFACE [facility] [address], [place], [address], 09/25/2024 13:37:22 12/25/19 25 12/24/2024 XR, knee, 4 or more view http:/ [email or web address] ?Encry pted=s hAaTro YD8dLq bEUv6g %2BXZw aYqtaq 0bqfl% 2Fg9IQ a4ajBk vP9nXo QUaueC m3YtLR FvZlgJ JJ8mAn HZtai3 4n7191 AC0KqY 3qGV6G kKiQtr MwF INTERFACE [facility] [address], [place], [address], 12/24/2024 16:44:20 12/25/19 25 12/24/2024 XR, knee, 4 or more view http:/ [email or web address] ?Encry pted=s hAaTro YD8dLq bEUv6g %2BXZw aYqtaq 0bqfl% 2Fg9IQ a4ajBk vP9nXo QUaueC m3YtLR FvZlgJ JJ8mAn HZtai3 4e5490 AC0KqY 3qGV6G kKiQtr MwF INTERFACE [facility] [address], [place], [address], 12/24/2024 16:44:22 01/30/20 25 01/29/2025 XR, elbow , 3 or more view http:/ [email or web address] ?Encry pted=s hAaTro YD8dLq bEUv6g %2BXZw aYqtaq 0bqfl% 2Fg9IQ a4ajBk vP9nXo QUaueC m3YtLR FvZlgJ JJ8mAn HZtai3 0x1483 AC0Kla 36AVaO nKiQtr MwF INTERFACE [facility] [address], [place], [address], 01/29/2025 10:23:04 01/30/20 25 01/29/2025 XR, elbow , 3 or more view http:/ [email or web address] ?Encry pted=s hAaTro YD8dLq bEUv6g %2BXZw aYqtaq 0bqfl% 2Fg9IQ a4ajBk vP9nXo QUaueC m3YtLR FvZl [facility] HZtai3 0k6768 AC0Kla 36AVaO nKiQtr MwF INTERFACE [facility] [address], [place], [address], 01/29/2025 10:23:06 01/30/20 25 01/29/2025 XR, wrist , 3 or more view http:/ [email or web address] ?Encry pted=s hAaTro YD8dLq bEUv6g %2BXZw aYqtaq 0bqfl% 2Fg9IQ a4ajBk vP9nXo QUaueC m3YtLR [address] HZtai3 [address] AC0Kla 36AV6S nKiQtr MwF INTERFACE [facility] [address], [place], [address], 01/29/2025 10:41:09 01/30/20 25 01/29/2025 XR, wrist , 3 or more view http:/ [email or web address] ?Encry pted=s hAaTro YD8dLq bEUv6g %2BXZw aYqtaq 0bqfl% 2Fg9IQ a4ajBk vP9nXo QUaueC m3YtLR FvZl[facility] HZtai3 9n8890 AC0Kla 36AV6S nKiQtr MwF INTERFACE [facility] [address], [place], [address], 01/29/2025 10:41:11 Result Notes Documentation Provider Name and Address Organization Details Recorded Time Mri, Cervical Spine, W/o Contrast : [facility] Accession Number: [id number] Patient Name: Oksana Denise Date of : 1950 Date of Exam: 09-22-2024 Referring Physician: Nilda West [facility] [address] [place], [place] [address] Exam: MR Cervical Spine (C-) CPT 17077 Room Description: [facility] 1.5 MRI of the cervical spine [...] described above. Electronically Signed By: Jesus West, THERAPIST RESPIRATORY [address], [place], [address], [place] - [facility] 09/25/2024 10:07:46 Xr, Lumbar Spine, 2 View : [email or web address] ncrypted=hfUqEuwZS8cNwcTYv 6g%0QAExcAvwor0nmzm%2Fg9IQ c9dxGwaP7yQwYSkhxDa8JbOSXr HqpDMH8xLwOPruo90m4590ES9J ow7hZFPOyKlIjqWxN Not Available [facility] 09/25/2024 13:37:21 Xr, Lumbar Spine, 2 View : [email or web address] ncrypted=ulTsPciMP1lPcxBWa 6g%5KTUjySiuyh6ttws%2Fg9IQ t3cuZxyV5sFkWSonhRi0HmCDCs NbpYXN6kOzWFkiy61h7777JD2S la1hVRLYnNmNqvPiF Not Available [facility] 09/25/2024 13:37:23 Xr, Knee, 4 Or More View : [email or web address] ncrypted=zbLsOtxCV8vCrwFDr 6g%2QWDnxBkkwu2oqwd%2Fg9IQ b2uiMweV1uRbIMjfcUy6MgPTPm HcnNZW8yCsINujb21h6430UI9I zA2vGI7VyRiCjiOmR Not Available [facility] 12/24/2024 16:44:21 Xr, Knee, 4 Or More View : [email or web address] ncrypted=fsJuArhEY7sBilTXo 6g%2YBFlaKrzqz9mhuw%2Fg9IQ e0ciOrzO2tAgPBzyjSe6VgPJSr OxtOCF3wUuQWafz48q7043RY5N oJ5rRC5OtOsNwmPkZ Not Available [facility] 12/24/2024 16:44:22 Xr, Elbow, 3 Or More View : [email or web address] ncrypted=ssYbZgeTU5gNuiMPz 6g%1ZKEsmLlfnl5zfom%2Fg9IQ r3slExgR3xPvKAmhqOv1BbJDPq VhmYCJ9jMhITbbs99j9719BJ0T uy40MXvMhOxGxwHvR Not Available [facility] 01/29/2025 10:23:05 Xr, Elbow, 3 Or More View : [email or web address]?E ncrypted=moKfGwrXA2pVvdCJq 6g%0QKWybWewxz5ipjo%2Fg9IQ m2fiKoeL4vNbZTckzEu4BbOJKj JtwKUT2iEkPLslf61k0385HH0O ya01LQzNgYwEbiFnQ Not Available [facility] 01/29/2025 10:23:06 Xr, Wrist, 3 Or More View : [email or web address]?E ncrypted=pqFwNqiVH9vIwsVTv 6g%3JBFneIedwg1xqnp%2Fg9IQ k7vqPmeM9eTtCVoobBd7BwSRLg YheSRL8bXkYJobx99n1269KN5S rp95NW9JjYjZuuQcL Not Available [facility] 01/29/2025 10:41:10 Xr, Wrist, 3 Or More View : [email or web address]?E ncrypted=klUoBhqHZ0rMugNKy 6g%9CFLhnHjodd0xwma%2Fg9IQ v6puYviM5bObVPdacEa1GeUJIa AstEAT4hCqCPnzc02e5977NP7R fw07RQ6OcZrXnkSfC Not Available [facility] 01/29/2025 10:41:11 Problems Name Problem SNOMED Code Status Onset Date Resolution Date Notes Provider Name and Address Organization Details Recorded Time No complaints 791127725 Active Status: 'I'; Not Available [facility] 09:15:35 Closed fracture of intracapsu lar section of femur Active 2016 Problem Code: S72.012D ; Problem Code Type: ICD-10; Status: 'A'; Not Available [facility] 11:27:52 Lumbago with sciatica 242401627 Active 2024 INGRID FRY [facility] 5 15:21:56 Pain of knee region 5247599347 Active 2024 Rocío Ayon [facility] 5 16:36:46 Problem Notes None recorded. Procedures Surgical History Date Name Laterality Status Provider Name and Address Organization Details Recorded Time 12/24/2024 Sports Knee 4&1 completed Ja Rosa PA-C [address] [place] [address] [address], [place], [address], [facility] 12/24/2024 17:02:34 Imaging Results None recorded. Procedure Notes None recorded. Medical Equipment None Reported. Allergies Allergen ID Allergen Name Allergen Category Reaction Reaction Severity Criticality Documentation Date Start Date Code Code System Note Provider Name and Address Organization Details Recorded Time 658136 clindamyc in Not available Not available Not available Not available 12/24/2024 2582 RxNorm Rocío Ayon [facility] 16:32:36 50865 morphine sulfate medicatio n Not available Not available Not available 11/13/20232013 00907 RxNorm Rocío Ayon [facility] 16:32:47 Medications Name Sig Start Date Stop [...] Updated DateTime 12/24/2024 154.94 cm 26.3 kg/m2 46533.34 g Rocío Ayon [facility] 12/24/2024 16:36:17 Date Recorded Body height Body mass index (BMI) Body weight Provider Name and Address Organization Details Last Updated DateTime 01/29/2025 154.94 cm 25.5 kg/m2 69842.97 g GABRIEL EDEN [facility] 01/29/2025 10:13:52 Social History None recorded. Functional Status None recorded. Mental Status None recorded. Family History Nothing Reported. Medical History No medical history recorded. Gynecological HistoryNo gynecological history recorded. Obstetrics History GPAL:G 0 P 0 0 0 0 Past Encounters Encounter ID Performer Location Encounter Start Date Encounter Closed Date Diagnosis/Indication Diagnosis SNOMED-CT Code Diagnosis ICD10 Code Diagnosis Note [id number] Nilda MIROSLAVA [place] [facility] [address] [place] [address] 09/17/2024 10:09:52 09/30/2024 13:43:57 Cervical radiculopathy 70370080 M54.12 Degenerati on of cervical intervertebral disc 26878532 M50.30 [id number] Nilda West CNP [facility] [address] [place] [address] 09/25/2024 13:24:02 10/07/2024 15:34:19 Low back pain 604290311 M54.59 Lumbar spondylosis 16625 0009 M47.816 Cervical spondylosis 387 710228 M47.076 [id number] Ja Rosa PA-C [facility] [address] [place] [address] 12/24/2024 16:23:57 01/08/2025 07:33:03 Pain of knee region 0901448623 M25.561 Osteoarthr itis of right knee joint 6564921811 85188 M17.11 [id number] MD [facility] [address] [place] [address] 01/29/2025 09:52:35 02/10/2025 11:17:17 Closed fracture of neck of radius 65921585 S52.135A Pain of left wrist 93533 28593 49060 M25.532 Osteoarthr itis of metacarpophalangeal joint 885347504 M19.042 Health Concerns Section Related Observation LastModified by Organization Detai ls LastModified Time None Recorded Concern Status LastModified by Organization Details LastModified Time None Recorded Advance Directives Directive None Recorded Payers Insurance Date Sequence Insurance Name Policy Number Policy Ward Covered Member ID Ward Member ID Guarantor Name 03/01/2025 1 [facility] IN[facility]MN[facility] (PPO) [id number] Harsha Denise [id number] Oksana Denise OBGyn Episode No OBEpisode recorded.
--- OUTSIDE RECORDS SUMMARY | 2025-04-07 10:32 | XMS_ITS | Continuity of Care Document ---
Author Organization [facility] [address] [place] [address] Phone [phone] Care Team Providers Care Lever Operator Name Role Phone Willian Calero MD Care Team Information Insulation Helper [phone] Problems Active Problems Provider Date Osteoporosis Kim [...] SIG Qnty Indications Order ing Provider Date Ikqhjfkzgoah642zus/2.2 4ML Solution Pen-Inject inject 20 mcg( 0.08 ml) subcutaneously once daily 6.72ml M81.0 Kim Jennings M.D. 02/10/2025 Cyclobenzaprine HCL5mg Tablets Unknown Ehqegnvha8ug Tablets Willian Calero MD Amphetamine-Dextroamph et ER30mg Caps ER 24HR Take 1 Capsule By Mouth Every Day In The Morning Willian Calero MD Diclofenac Ybziqo04uq Tablets DR Take 1 Tablet Twice A Day By Oral Route With Meal(S), For as Needed For Pain. Unknown Escitalopram Euoplpj01cv Tablets Take 1 Tablet By Mouth Every Day Willian Calero MD Wkdspqatpgdh349nl Tablets Take 1 Tablet (100 MG Total) By Mouth Daily. For UTI Prophylaxis Unknown Beqjildeslhiaw35uz Tablets Take 1 Tablet By Mouth 1 Time Each Day prn Unknown Oqtesmyf656795Ztkl/GM Ointment Apply Topically To Affected Area 2 (Two) Times A Day. Unknown Pantoprazole Ydwyms00wz Tablets DR Take 1 Tablet By Mouth Twice A Day Willian Calero MD Endbvfwvkx613oj Capsules Take 1 Capsule By Mouth Three Times A Day Willian Calero MD Acetic Acid0.25% Solution Use 60 cc Per Flush Four Times Daily as Needed Aman Vega MD Fyunagyfiby271tj Capsules TK Four CS PO 1 Hour B Dapp Unknown Albuterol Sulfate YSG350(90Base) mcg/Act Aerosol Inhale 2 Puffs Every 6 Hours as Needed Willian aClero MD Multivitamin Womens 50+ AdvancedTablets 1 by mouth every day Kodak Jennings M.D. Citracal Calcium+D Slow Zwvothj273-67-845rd-bc -Unit Tablets ER 24HR 1 by mouth [...] D deficiency has been defined by the [place] of Medicine and an Endocrine Society practice guideline as a level of serum 25-OH vitamin D less than 20 ng/mL (1,2). The Endocrine Society went on to further define vitamin D insufficiency as a level between 21 and 29 ng/mL (2). 1. IOM ([place] of Medicine). 2010. Dietary reference intakes for [...] measured NTx value is <or=38 nM BCE/mM TECHNICAL SERVICES MANAGER, or NTx has decreased >or=30% from baseline.[1] [...]
[2025-04-07 14:01] LABS: Appearance Urine Clear; Glucose Urine UA Negative (Negative); PH 7.0 (5.0-9.0); Specific Gravity - Urine <= 1.005 (1.005-1.025)
== END 2025-04-07 09:41 | disposition home or self-care (01) ==
LOC: HO.10HDLNP 09:40
PROVIDERS: Visit Provider Nurse Practitioner Family
DX: R30.0 Dysuria (principal)
CPT/HCPCS: 81003

== ENCOUNTER 2025-04-25 10:58 | Outpatient (REF) | payer OTHER, SELFPAY ==
--- NOTE | ~2025-04-25 | MM_ITS ---
EXAMINATION: MM SCREENING DIGITAL BREAST TOMOSYNTHESIS, BILATERAL CLINICAL INFORMATION: Screening. Asymptomatic. COMPARISON: Comparison made to multiple prior, most recent April 19, 2024, and most remote February 28, 2019. TECHNIQUE: Digital breast tomosynthesis is performed in both the craniocaudal and mediolateral oblique views along with computer-aided detection (CAD). FINDINGS: BREAST COMPOSITION: There are scattered areas of fibroglandular density (ACR BI-RADS breast composition Category b). BILATERAL BREASTS: No significant masses, suspicious calcifications or other abnormalities are seen in either breast. MM/MM tomosynthesis screening BI IMPRESSION: BILATERAL BREASTS: Negative, no mammographic evidence of malignancy. Normal interval follow-up is recommended in 12 months. ASSESSMENT: BI-RADS 1 - Negative RECOMMENDATION: Routine annual mammography screening. FOLLOW-UP: 1 year F/U This examination should not preclude the clinical evaluation of a suspicious palpable abnormality. This patient's information was entered into a reminder system with a target due date for their next mammogram. Electronically signed by: Gisella Marshall MD 04/29/2025 01:33 PM EDT
--- OUTSIDE RECORDS SUMMARY | 2025-04-25 11:06 | XMS_ITS | Clinical Summary ---
Author Organization [facility] Address [address] [place] [address] Care Team Providers Care Electrical Panel Builder Name Role Phone Unavailable Primary Care Provider [...]
--- OUTSIDE RECORDS SUMMARY | 2025-04-25 11:06 | XMS_ITS | Clinical Summary ---
Author Organization [facility] Address [address] [place] [address] Phone Care Team Providers Care Compressor Operator Name Role Phone Alina Lim MD, MPH Unavailable [phone] Willian Calero MD Primary Care Provider [phone] Allergies Active Allergy Reactions Criticality Noted Date [...] Info) Description 10/10/2025 11:30 AM EST Follow-Up [facility] Urology [address] [place] [address] Spencer Sidhu MD [address] [place] [address] Health Maintenance Due Date Last Done Comments [...] Devices Not on file Insurance MEDICARE A [employer] GIC PLUS PPO 2 [id number] [facility] EBER LÓPEZ Care Teams Compressor Operator Relationship Specialty Start Date End Date Willian Calero MD [address] [place] [address] PCP - General Internal Medicine 08/28/23 Alina Lim MD, MPH 131 [facility]. [address] [place] [address] [email or web address] Surgery 08/25/23 Additional Source Comments The information contained in this document represents components of the legal health record. It is not the complete legal health record.[facility]
--- OUTSIDE RECORDS SUMMARY | 2025-04-25 11:06 | XMS_ITS | Clinical Summary ---
Author Organization [facility] Address [address] [facility] [place] [address] Phone Care Team Providers Care Upper Cutter Machine Name Role Phone Barbara Child MD Primary Care Provider [phone] Allergies Active Allergy Reactions Criticality Noted Date [...] Encounters Date Type Department Care Team Description 04/07/2025 8:30 AM EDT Ancillary Procedure [facility] Cardiology [facility] [address] [address] Leg swelling 04/02/2025 Telephone [facility] [address] [place] [address] Marifer Woodall MA echo results 03/26/2025 2:30 PM EDT Ancillary Procedure [facility] [address] [address] Newly recognized heart murmur 02/18/2025 9:10 AM EDT Office Visit [facility] Cardiology [facility] [address] [facility] [address] [place] [address] Deidre Foy NP Leg swelling (Primary Dx) [...] Sign Reading Time Taken Comments Blood Pressure 122/60 03/26/2025 3:18 PM EDT Pulse 78 02/18/2025 9:16 AM EDT Temperature - - Respiratory Rate - - Oxygen Saturation 98% 02/18/2025 9:16 AM EDT Inhaled Oxygen Concentration - - Weight 65.3 kg (144 lb) 03/26/2025 3:18 PM EDT Height 154.9 cm (5' 1 ) 03/26/2025 3:18 PM EDT Body Mass Index 27.21 03/26/2025 3:18 PM EDT Plan of Treatment Upcoming Encounters Date Type Department Care Team (Late st Contact Info) Description 08/15/2025 7:40 AM EST Office Visit [facility] [place] [address] Deidre Foy NP [address] [place] [address] [place] [address] Health Maintenance Due Date Last Done Comments Breast Cancer Screening 1950 Cholesterol Screening (Lipid Panel) 08/19/2022 Colorectal Cancer Screening: Colonoscopy 08/19/2022 Falls Risk Assessment 08/19/2022 Hepatitis C Screening 08/19/2022 Osteoporosis Screening (Bone Density Screening) 08/19/2022 Social Influencers of Health Screening 08/19/2022 Depression Screening 09/11/2024 COVID-19 Vaccine ( season) 2024 06/10/2024, 06/03/2023, 01/19/2023, Additional history exists Influenza Vaccine (#1) 2025 4, 06/03/2023, 06/02/2022, Additional history exists DTaP,Tdap,and Td [...] on patient's age to complete this topic Procedures Procedure Name Priority Date/Time Associated Diagnosis Comments VAS US DUPLEX LOWER EXT VENOUS INSUFFICIENCY BILATERAL Routine 04/07/2025 9:08 AM EDT Leg swelling TRANSTHORACIC ECHOCARDIOGRAM (TTE) COMPLETE Routine 03/26/2025 3:19 PM EDT Newly recognized heart murmur from Last 3 Months Results * Vascular US duplex lower extremity venous insufficiency bilateral (04/07/2025 9:08 AM EDT) Left GSK christina 0.32 cm CV VAS LAB Left GSDC christina 0.13 cm CV VAS LAB Left GSMT christina 0.31 cm CV VAS LAB Left GSPC christina 0.20 cm CV VAS LAB Left GSPT christina 0.38 cm CV VAS LAB Left SFJ Diameter 0.32 cm CV VAS LAB Left SSMC christina 0.17 cm CV VAS LAB Left SSPC christina 0.40 cm CV VAS LAB Right GSK christina 0.27 cm CV VAS LAB Right GSDC christina 0.12 cm CV VAS LAB Right GSMT christina 0.31 cm CV VAS LAB Right GSPC christina 0.24 cm CV VAS LAB Right GSPT christina 0.39 cm CV VAS LAB Right SFJ Diameter 0.53 cm CV VAS LAB Right SSMC christina 0.22 cm CV VAS LAB Right SSPC christina 0.12 cm CV VAS LAB Right AAS christina 0.29 cm CV VAS LAB Left GSK reflux 1,400 ms CV VAS LAB Left AAS christina 0.23 cm CV VAS LAB Anatomical Region Laterality Modality Vascular, Abdomen Ultrasound Narrative 04/08/2025 4:46 PM EDT RIGHT. 1. No evidence of deep vein thrombosis. 2. The saphenofemoral junction, common femoral, femoral, and popliteal veins are competent. 3. No superficial venous thrombosis. 4. No venous reflux noted in the saphenopopliteal junction or small saphenous vein. 5. No venous reflux noted in the greater saphenous vein. LEFT. 1. No evidence of deep vein thrombosis. 2. The saphenofemoral junction, common femoral, femoral, and popliteal veins are competent. 3. No superficial venous thrombosis. 4. No venous reflux noted in the saphenopopliteal junction or small saphenous vein. 5. Isolated 1.4 seconds of reflux in the at knee greater saphenous vein. Otherwise, no venous reflux noted in the greater saphenous vein. Right Lower Venous No evidence of deep vein thrombosis in the common femoral, deep femoral, proximal femoral, mid femoral, distal femoral, popliteal, greater saphenous, small saphenous, posterior tibial and peroneal veins of the right leg. The vessels showed compressibility. Interrogation showed phasic and spontaneous Doppler signals. Right Venous Insufficiency Duplex The exam was performed with the patient in reverse Trendelenburg. Right saphenopopliteal junction was not identified. Left Lower Venous No evidence of deep vein thrombosis in the common femoral, deep femoral, proximal femoral, mid femoral, distal femoral, popliteal, greater saphenous, small saphenous, posterior tibial and peroneal veins of the left leg. The vessels showed compressibility. Interrogation showed phasic and spontaneous Doppler signals. Left Venous Insufficiency Duplex The exam was performed with the patient in reverse trendelenburg. Left saphenopopliteal junction was not identified. Formal Service Waiter Details A mckeon scale, color and doppler analysis ultrasound was performed. During the study longitudinal and transverse views were obtained. Continuous wave doppler and pulsed wave doppler was performed. Overall the study quality was good. us Deidre Foy NP CV VASCULAR PROCEDURES Final R esult * (ABNORMAL) TRANSTHORACIC ECHOCARDIOGRAM (TTE) COMPLETE (03/26/2025 3:19 PM EDT) Left Atrium Minor [place] 5.2 cm CV PACS Left Atrium Major [place] 4.6 cm CV PACS LA Area Sys (A2C) 20 cm2 CV PACS LA Area Sys (A4C) 18 cm2 CV PACS LA Volume (BP) 61 mL CV PACS RA Area 13.7 cm2 CV PACS RA 2D Volume 28 mL CV PACS Aortic Sinus Valsalva 3.0 cm CV PACS Ascending Aorta 3.1 cm CV PACS IVSD 0.8 0.6 - 0.9 cm CV PACS LVIDD 4.4 3.8 - 5.2 cm CV PACS LVIDS 2.9 2.2 - 3.5 cm CV PACS LVOT Diameter 2.2 cm CV PACS LVOT Mean Samir 0.6 m/s CV PACS LVOT Mean Grad 2 mmHg CV PACS LVOT Peak VTI 21.0 cm CV PACS LVOT Peak Samir 1.0 m/s CV PACS LVOT Peak Gradient 4 mmHg CV PACS LVPWD 0.8 0.6 - 0.9 cm CV PACS MV E' Tissue Velocity Lateral 9 cm/s CV PACS MV E' Tissue Velocity Septal 8 cm/s CV PACS LVOT Area 3.8 cm2 CV PACS LVOT Stroke Volume 80 mL CV PACS MV Deceleration [place] 3.9 m/s2 CV PACS E Wave Deceleration Time 192 119 - 242 ms CV PACS MV PHT 56 ms CV PACS MV Peak A Samir 0.82 m/s CV PACS MV Peak E Samir 0.75 m/s CV PACS MV Area PHT 3.9 cm2 CV PACS PV Acceleration Time 137 ms CV PACS PV Acceleration Time 137 ms CV PACS PV Mean Gradient 5 mmHg CV PACS PV VTI 32.4 cm CV PACS PV Peak Velocity 1.7 m/s CV PACS PV Peak Gradient 11 mmHg CV PACS RV Diastolic Basal Dimension 4.2(A) 2.5 - 4.1 cm CV PACS TAPSE 29 mm CV PACS TR Peak Velocity 2.53 m/s CV PACS TR Peak Gradient 26 mmHg CV PACS E/E' Ratio Septal 9 CV PACS E/E' Ratio Averaged 9 CV PACS Relative Wall Thickness ratio 0.36 CV PACS FS 34 % CV PACS LV Mass 2D 109 g CV PACS LVOT flow 228 mL/s CV PACS E/A Ratio 0.9 CV PACS E/E' Ratio Lateral 8 CV PACS BSA 1.68 m2 CV PACS LA Volume Index (BP) 37 mL/m2 CV PACS LVIDD Index 2.68 cm/m2 CV PACS LVIDS Index 1.77 cm/m2 CV PACS LV Mass Index 2D 67 44 - 88 g/m2 CV PACS LVOT Stroke Index 49 mL/m2 CV PACS RA 2D Volume Index 17 15 - 27 mL/m2 CV PACS Ascending Aorta Index 1.89 cm/m2 CV PACS Right Ventricular Peak Systolic Pressure 34 mmHg CV PACS Est. RA Pressure 8 mmHg CV PACS Anatomical Region Laterality Modality Ultrasound Narrative 03/29/2025 2:41 PM EDT Left Ventricle: Left ventricle cavity size is normal. Wall thickness is normal. Systolic function is normal with an ejection fraction of 55-60%. There are no regional LV wall motion abnormalities. There is Grade I (mild) diastolic dysfunction. Left Atrium: Left atrium cavity is mildly dilated. Right Ventricle: Right ventricle cavity is dilated. Systolic function is normal. Normal TAPSE (> 17 mm). Right Atrium: Right atrium cavity is normal. Mitral Valve: There is trace regurgitation. IVC/SVC: RA pressures is estimated to be 8 mmHg (IVC diameter <21 mm and decreases <50% during inspiration). Left Ventricle Left ventricle cavity size is normal. Wall thickness is normal. Systolic function is normal with an ejection fraction of 55-60%. There are no regional LV wall motion abnormalities. There is Grade I (mild) diastolic dysfunction. Right Ventricle Right ventricle cavity is dilated. Systolic function is normal. Normal TAPSE (> 17 mm). Left Atrium Left atrium cavity is mildly dilated. Right Atrium Right atrium cavity is normal. IVC/SVC RA pressures is estimated to be 8 mmHg (IVC diameter <21 mm and decreases <50% during inspiration). Mitral Valve The leaflets are mildly thickened and exhibit normal excursion. There is mild annular calcification. There is trace regurgitation. There is no evidence of mitral valve stenosis. Tricuspid Valve The leaflets exhibit normal excursion. There is trace regurgitation. Aortic Valve The aortic valve is trileaflet. The leaflets are mildly thickened. There is trace regurgitation. There is no evidence of aortic valve stenosis. Pulmonic Valve No significant pulmonary valve stenosis noted. Ascending Aorta The aorta appears normal in size. Study Details Overall the study quality was adequate. us Ryan Mathis MD CV ECHO PROCEDURES Final Resul t from Last 3 Months Insurance MEDICARE [facility] Care Teams Upper Cutter Machine Relationship Specialty Start Date End Date Barbara Child MD [address] [place] [address] PCP - General Internal Medicine 02/04/25
--- OUTSIDE RECORDS SUMMARY | 2025-04-25 11:06 | XMS_ITS | Encounter Summary ---
Author Organization [facility] Address [address] [place] [address] Care Team Providers Care Microbiology Coordinator Name Role Phone Pallavi Quesada SALES ORDER SPECIALIST Primary Care Provider [phone] Reason for Visit * Reason Comments Appointment Encounter Details Date Type Department Care Team (Late st Contact Info) Description 12/28/2020 Telephone [facility] [address] [address] Referring, No Appointment Social History [...] on filedocumented in this encounter Care Teams Microbiology Coordinator Relationship Specialty Start Date End Date Pallavi Quesada, MARCELLA [address] [place] [phone] PCP - General 12/29/20 documented as of this encounter
== END 2025-04-25 10:59 | disposition home or self-care (01) ==
LOC: HO.MAMMO 10:58
PROVIDERS: PCP Internal Medicine; Visit Provider Internal Medicine
DX: Z12.31 Encounter for screening mammogram for malignant neoplasm of breast (principal)
CPT/HCPCS: 77063; 77067

== ENCOUNTER → 2025-04-25 11:00 | Outpatient (BNV) | payer OTHER, SELFPAY | PROVIDERS: PCP Internal Medicine; Visit Provider Radiology Body Imaging | DX: Z12.31 Encounter for screening mammogram for malignant neoplasm of breast (principal) | CPT/HCPCS: 77063; 77067 ==

== ENCOUNTER 2025-06-03 11:08 | Outpatient (AMB) | payer OTHER, SELFPAY ==
[2025-06-03 11:21] VITALS: BP 102/64; PULSE 81; O2SAT 96
--- NOTE | 2025-06-03 11:21 | HO.NEPHOV_ITS ---
Vital Signs 06/03/25 11:21 Height 5 ft 1 in BP 102/64 Blood Pressure Location Lt brachial Position Sitting Pulse 81 Pulse Source Pulse Oximeter Pulse Oximetry (%) 96 Oxygen Delivery Method Room Air Intake Visit Reasons: Self referral INP. DX- rise in Creat Transit Police Officer Required: No Accompanied by: Self / Same As Patient Allergies clindamycin (CLINDAMYCIN) Allergy (Severe, Verified 06/03/25 11:22) PURPURA Seasonal Allergies Allergy (Intermediate, Verified 06/03/25 11:22) Congestion Clindamycin HCl Allergy (Unknown, Uncoded 03/20/25 12:18) purpra cilantro Adverse Reaction (Unknown, Uncoded 03/20/25 12:18) Hives Clindamycin Adverse Reaction (Unknown, Uncoded 03/20/25 12:18) purpra Medication List - Last Reconciled 06/03/25 by Amador Vega MD albuterol sulfate 90 mcg/actuation 2 puffs inhalation Q6H PRN cetirizine (Zyrtec) 10 mg PO DAILY PRN dextroamphetamine-amphetamine 20 mg ER 1 cap PO BID 60 days escitalopram oxalate 20 mg PO DAILY furosemide 20 mg PO DAILY gabapentin 300 mg PO BID lorazepam 1 mg PO BID PRN multivitamin (Daily Multi-Vitamin tablet) 1 tab PO DAILY pantoprazole 40 mg PO BID spironolactone 25 mg PO DAILY HPI Comments Details: - The patient is a 75-year-old female presenting for evaluation of kidney function and management of chronic anemia. - Bladder cancer treated with cystectomy in 2015, with urostomy for urinary diversion. - Acute kidney injury with creatinine 1.57 mg/dL in February, fluctuating levels since. She was on Diclofenac and Trimethoprim- both were stopepd few weeks ago [facility] restarted Aleve two a day for severe arthritis - Hypertension noted with BP 102/52 mmHg during recent hospital visit. - Osteoporosis treatment stopped due to elevated creatinine - Heart murmur, on furosemide and spironolactone for edema. - Chronic anemia with hemoglobin around 9.8 g/dL, previously treated with iron infusions. s/p Transfusion in the past [facility] Medical History (Updated 06/03/25 @ 11:29 by Amador Vega MD) FH: total knee replacement Surgical History Lipoma of back (12/19/22) H/O gastric bypass History of appendectomy History of urostomy Family History Daughter FHx: mental illness Son Substance abuse Social History Housing: Apartment Alcohol intake: current Alcohol intake frequency: a few times a week Alcohol type: wine Patient Tobacco Use Status: Former Tobacco user e-Cigarette/Vaping Use: Never Used Second Hand Smoke Exposure: No service: No Current occupational status: employed and retired Current occupational exposures/hazards: No Cognitive needs: No Hearing needs: No Vision needs: No Review of Systems Const Denies fever(s) and Denies weight loss Card Denies chest pain Resp Denies cough and Denies hemoptysis GI Denies abdominal pain, Denies diarrhea and Denies nausea Neuro Denies focal weakness Physical Exam Vital Signs: Last Vital Signs Pulse 81 06/03/25 11:21 BP 102/64 06/03/25 11:21 Pulse Ox 96 06/03/25 11:21 Oxygen Delivery Method Room Air 06/03/25 11:21 Comfortable Neck supple no JVD. Lungs entry equal no rales. Heart S1-S2 heard no gallop or rub. Abdomen soft nontender. Neuro alert awake oriented. No asterixis. Extremities no edema. Results Reviewed Nephrology Results: Hgb, (12.0-16.0) 9.7 g/dl L Today WBC, (4.8-10.8) 3.6 X10*3/uL L Today Plt Count, (160-400) 312 X10*3/uL Today Sodium, (135-145) 141 mmol/L Today Potassium, (3.3-5.1) 4.9 mmol/L Today Chloride, (96-108) 110 mmol/L H Today Carbon Dioxide, (22-29) 25 mmol/L Today BUN, (9-16) 27 mg/dL H Today Creatinine, (0.5-1.4) 1.51 mg/dL H Today Calcium, (8.4-10.2) 9.5 mg/dL Δ Today Urine Protein, (Neg-Trace) Negative mg/dL Today Urine Creatinine Pending Today Assessment & Plan Assessment & Plan (1) DAMIR (acute kidney injury): Code(s): N17.9 - Acute kidney failure, unspecified Category: Medical (2) CKD (chronic kidney disease): Code(s): N18.9 - Chronic kidney disease, unspecified Category: Medical (3) Presence of urostomy: Code(s): Z93.6 - Other artificial openings of urinary tract status Category: Medical (4) Anemia: Code(s): D64.9 - Anemia, unspecified Category: Medical Plan 1. Acute Kidney Injury Most likely due to hypoperfusion from low BP And use of NSAIDS Trimethoprim can elevate creatinine by inhibiting tubular Cr secretions Recent USG done in Urology ( ) was unremarkable. Urine sediments are bland- no evidenceof AGN/AiN - Repeat creatinine levels to monitor improvement. Avoid NSAIDS Avoid hypotension - Review diuretic use impact on kidney function. 2. Chronic Anemia - Recheck hemoglobin and iron levels. - Consider iron supplementation if low. 3. Osteoporosis - Discontinued medication due to elevated creatinine. - Re-evaluate medication options pending kidney function improvement. 4. Hypertension - Monitor blood pressure due to low readings. No change in meds today 5.h/o CHF Will track down Echo May need to adjust diuretics based on ECHO and renal function Clinically she appears compensated Orders: Orders Complete Blood Count Auto Diff Today Amador Vega MD D64.9 - Anemia, unspecified, N18.9 - Chronic kidney disease, unspecified UA and rflx microscopic Today Amador Vega MD D64.9 - Anemia, unspecified, N18.9 - Chronic kidney disease, unspecified IRON PROFILE Today Amador Vega MD D64.9 - Anemia, unspecified, N17.9 - Acute kidney failure, unspecified, N18.9 - Chronic kidney disease, unspecified Ferritin Today Amador Vega MD D64.9 - Anemia, unspecified, N17.9 - Acute kidney failure, unspecified, N18.9 - Chronic kidney disease, unspecified Comprehensive Met. Panel Today Amador Vega MD D64.9 - Anemia, unspecified, N18.9 - Chronic kidney disease, unspecified Creatinine Urine Today Amador Vega MD D64.9 - Anemia, unspecified, N18.9 - Chronic kidney disease, unspecified Total Protein Urine Random Today Amador Vega MD D64.9 - Anemia, unspecified, N18.9 - Chronic kidney disease, unspecified Medications: Changed From gabapentin 300 mg PO TID 90 caps 0RF To gabapentin 300 mg PO BID Jennifer Low PA-C Discontinued cefixime Discontinued Reason: Patient no longer taking 400 mg PO DAILY 7 days 7 caps 0RF Coding Level of Care Code New Pt Level 4 (17857) Diagnoses DAMIR (acute kidney injury) N17.9 CKD (chronic kidney disease) N18.9 Presence of urostomy Z93.6 Anemia D64.9
--- OUTSIDE RECORDS SUMMARY | 2025-06-03 13:55 | XMS_ITS | Encounter Summary ---
Author Organization [facility] Address [address] [place] [address] Care Team Providers Care Relationship Assoc Name Role Phone Pallavi Quesada MANAGER FRENCH Primary Care Provider [phone] Encounter Details Date Type Department Care Team (Late st Contact Info) Description 01/25/2021 Telephone [facility] at [address] [place] [id number] Liam Ag MD [address] [place] [phone] Social History Tobacco Use Types Packs/Day [...] Ha - 01/25/2021 2:14 PM EDT Subha eWir is requesting pre-op paperwork be faxed to [phone]. Any questions call Oksana at [phone]. Thank you. documented in this encounter Plan of Treatment Not on file documented as of this encounter Visit Diagnoses Not on filedocumented in this encounter Care Teams Relationship Assoc Relationship Specialty Start Date End Date Pallavi Quesada NP [address] [facility] [address] [facility] [address] [place] [address] PCP - General 12/29/20 documented as of this encounter
--- OUTSIDE RECORDS SUMMARY | 2025-06-03 13:55 | XMS_ITS | Encounter Summary ---
Author Organization [facility] Address [address] [place] [address] Care Team Providers Care Coordinator Of Online Programs Name Role Phone Pallavi Quesada REGIONAL BRANCH MANAGER Primary Care Provider [phone] Reason for Visit * Reason Comments Appointment Encounter Details Date Type Department Care Team (Late st Contact Info) Description 12/28/2020 Telephone [facility] at [address] [address] Referring, No Appointment Social History [...] on filedocumented in this encounter Care Teams Coordinator Of Online Programs Relationship Specialty Start Date End Date Pallavi Quesada, MARCELLA [address] [place] [phone] PCP - General 12/29/20 documented as of this encounter
--- OUTSIDE RECORDS SUMMARY | 2025-06-03 13:57 | XMS_ITS | Encounter Summary ---
Author Organization [facility] Address [address] [place] [phone] Care Team Providers Care Nuclear Reactor Technician Name Role Phone Pallavi Quesada PROCUREMENT ACCOUNTANT Primary Care Provider [phone] Reason for Visit * Reason Comments Medication Problem Encounter Details Date Type Department Care Team (Late st Contact Info) Description 02/16/2021 Refill [facility] SCHEDULING [address] [place], [place] [phone] Liam Ag MD [address] [place] [address] Medication Problem Social History Tobacco [...] on filedocumented in this encounter Care Teams Nuclear Reactor Technician Relationship Specialty Start Date End Date Pallavi Quesada, MARCELLA [address] [place] [address] PCP - General 12/29/20 documented as of this encounter
--- OUTSIDE RECORDS SUMMARY | 2025-06-03 13:57 | XMS_ITS | Clinical Summary ---
Author Organization [facility] Address [address] [place] [address] Care Team Providers Care Physiotherapist'S Assistant Name Role Phone Unavailable Primary Care Provider [...] series) 2024 Influenza Vaccine (#1) 2025 06/02/2022 Hepatitis C Screening Addressed 02/20/2013 Overri dden with the intention of not completing the topic Pneumococcal Vaccine Completed 04/20/2023, 04/20/2017 Hepatitis B Vaccines Aged Out No long er eligible based on patient's age to complete this topic RSV Ped < 20 months Aged Out No longe r eligible based on patient's age to complete this topic
--- OUTSIDE RECORDS SUMMARY | 2025-06-03 13:57 | XMS_ITS | Clinical Summary ---
Author Organization [facility] Address [address] [facility] [place] [address] Phone Care Team Providers Care Curator Natural History Museum Name Role Phone Barbara Child MD Primary Care Provider [phone] Allergies Active Allergy Reactions Criticality Noted Date [...] Description 04/07/2025 8:30 AM EDT Ancillary Procedure [facility] [address] [phone] Leg swelling 04/02/2025 Telephone [facility] Cardiology [facility] [address] [place] [phone] Isidro WoodallRandolph, [place] 03/26/2025 2:30 PM EDT Ancillary Procedure [facility] [address] [phone] Newly recognized heart murmur from Last 3 Months Surgical History Surgery [...] Description 08/15/2025 7:40 AM EST Office Visit [facility] [address] [place] [phone] Deidre Foy NP [address] [place] [address] [address] [place] [phone] Health Maintenance Due Date Last Done Comments Breast Cancer Screening 1950 Cholesterol Screening (Lipid Panel) 08/19/2022 Falls Risk Assessment 08/19/2022 Hepatitis C Screening 08/19/2022 Osteoporosis Screening (Bone Density Screening) 08/19/2022 Social Influencers of Health Screening 08/19/2022 Depression Screening 09/11/2024 COVID-19 Vaccine ( season) 2025 06/10/2024, 06/03/2023, 01/19/2023, Additional history exists Influenza [...] trendelenburg. Left saphenopopliteal junction was not identified. Gun Synchronizer Details A mckeon scale, color and doppler analysis ultrasound was performed. During the study longitudinal and transverse views were obtained. Continuous wave doppler and pulsed wave doppler was performed. Overall the study quality was good. us Deidre Foy NP CV VASCULAR PROCEDURES Final R esult * (ABNORMAL) TRANSTHORACIC ECHOCARDIOGRAM (TTE) COMPLETE (03/26/2025 3:19 PM EDT) Left Atrium Minor [place] 5.2 cm CV PACS Left Atrium Major [place] 4.6 cm CV PACS LA Area Sys [...] Volume 80 mL CV PACS MV Deceleration [place] 3.9 m/s2 CV PACS E Wave Deceleration [...] t from Last 3 Months Insurance MEDICARE [facility] Care Teams Curator Natural History Museum Relationship Specialty Start Date End Date Barbara Child MD [address] [place] [address] PCP - General Internal Medicine 02/04/25
== END 2025-06-03 11:46 | disposition home or self-care (01) ==
LOC: HO.HKA 11:09
PROVIDERS: PCP Internal Medicine; Visit Provider Internal Medicine Hypertension Specialist
DX: N17.9 Acute kidney failure, unspecified (principal); N18.9 Chronic kidney disease, unspecified; Z93.6 Other artificial openings of urinary tract status; D64.9 Anemia, unspecified
CPT/HCPCS: 99204

== ENCOUNTER 2025-06-03 12:04 | Outpatient (REF) | payer OTHER, SELFPAY ==
[2025-06-03 13:04] LABS: MANUAL DIFF FLAG NO
[2025-06-03 13:10] LABS: Appearance Urine Clear; Glucose Urine UA Negative (Negative); Hematocrit 31.6 % (37.0-47.0); Hemoglobin 9.7 g/dl (12.0-16.0); Imm Gran Abs Auto 0.01 X10*3/uL (0.00-0.03); Imm Gran Pct Auto 0.3 % (0.0-0.4); Lymphocytes Absolute Auto 0.9 X10*3/uL (1.2-4.9); Mean Corpuscular HGB Conc 30.7 g/dl (31.0-35.0); Mean Corpuscular Hemoglobin 27.6 pg (27.0-33.0); Mean Corpuscular Volume 90.0 fL (80.0-98.0); NRBC Abs Auto 0.000 X10*3/uL (0.0-0.012); NRBC Pct Auto 0.0 /100WBC (0.0-0.2); PH 7.0 (5.0-9.0); Platelet Count 312 X10*3/uL (160-400); Red Blood Count 3.51 X10*6/uL (4.20-5.50); Specific Gravity - Urine <= 1.005 (1.005-1.025); UMIC TRIGGER UA YES; White Blood Count 3.6 X10*3/uL (4.8-10.8)
[2025-06-03 13:29] LABS: Alanine Aminotransferase 25 U/L (0-31); Albumin Level 4.1 g/dL (3.5-5.0); Alkaline Phosphatase 79 U/L (39-117); Anion Gap 11 (12-20); Aspartate Amino Transferase 26 U/L (5-31); Blood Urea Nitrogen 27 mg/dL (9-16); Calcium 9.5 mg/dL (8.4-10.2); Carbon Dioxide 25 mmol/L (22-29); Chloride 110 mmol/L (96-108); Estimated Glomerular Filt Rate 34; Iron 30 mcg/dL (30-160); Percent Iron Saturation 8 % (15-50); Potassium 4.9 mmol/L (3.3-5.1); Sodium 141 mmol/L (135-145); Total Iron Binding Capacity 385 mcg/dL (228-428); Total Protein 6.9 g/dL (6.5-8.0); Unsaturated Iron Binding 355 ug/dL
[2025-06-03 13:44] LABS: Ferritin 18 ng/mL (10-250)
[2025-06-03 14:11] LABS: Total Protein Urine Random 8 mg/dL (<12)
--- OUTSIDE RECORDS SUMMARY | 2025-06-03 15:00 | XMS_ITS | Clinical Summary ---
Author Organization [facility] Address [address] [place] [address] Phone Care Team Providers Care Toddler Lead Teacher Name Role Phone Alina Lim MD, MPH Unavailable [phone] Willian Caleor MD Primary Care Provider [phone]- [phone] Allergies Active Allergy Reactions Criticality Noted Date [...] 05/19/2023 Nervousness 04/24/2018 05/19/2023 Anemia 04/24/2018 05/19/2023 Encounters Date Type Department Care Team Description 05/20/2025 Telephone [facility] Surgery [address] [place] [id number] Alina Lim MD, MPH from Last 3 Months Immunizations Immunization Administration Dates Next Due Pneumococcal [...] Info) Description 10/10/2025 11:30 AM EST Follow-Up [facility] Urology [address] [place] [address] Spencer Sidhu MD [address] [place] [address] Health Maintenance Due Date Last Done Comments LIPID PANEL 1950 DEPRESSION SCREENING 1961 SMOKING Hx and SMOKELESS TOB ACCO SCREENING 1962 HEPATITIS C SCREENING 1967 ZOSTER VACCINES (1 of 2) 1968 OSTEOPOROSIS SCREENING INITI AL (ONE-TIME) 2014 PNEUMOCOCCAL VACCINES (50+ y ears) (2 of 2 - PPSV23) 06/15/2017 04/20/2017 Adult Td,Tdap Booster 11/03/2018 11/03/2008 RSV VACCINE (1 - 1-dose 75+ series) 2024 INFLUENZA VACCINE (#1) 2025 COVID-19 VACCINE ( - 2023-2 5 season) 2025 HEPATITIS A VACCINES Aged Out No long [...] Devices Not on file Insurance MEDICARE A [employer] [facility] PLUS PPO Care Teams Toddler Lead Teacher Relationship Specialty Start Date End Date Willian Calero MD [address] [place] [address] PCP - General Internal Medicine 08/28/23 OaklandAlina cramer MD, MPH [address] [place] [address] [email or web address] General Surgery 08/25/23 Additional Source Comments The information contained in this document represents components of the legal health record. It is not the complete legal health record.[facility]
--- OUTSIDE RECORDS SUMMARY | 2025-06-03 15:00 | XMS_ITS | Encounter Summary ---
Author Organization [facility] Address [address] [facility] [address] [place] [address] Phone Care Team Providers Care Vat Overhauler Name Role Phone Alina Lim MD, MPH Unavailable [phone] [phone] Willian Calero MD Primary Care Provider [phone]- [phone] Reason for Referral * MRI/CAT Scan - New Request Specialty Diagnoses / Procedures Referred By Hafsa smith Referred To Contact Radiology Diagnoses Personal history of colon cancer Procedures CT Chest Alina Lim MD, MPH [address] [place] [address] Phone: tel: fax: mailto:[email or web address] Referral ID Status Reason Start Date Expiration Date V isits Requested Visits Authorized [id number] New Request 05/20/2025 1 1 * MRI/CAT Scan - New Request Specialty Diagnoses / Procedures Referred By Hafsa smith Referred To Contact Radiology Diagnoses Personal history of colon cancer Procedures CT Abdomen/Pelvis Alina Lim MD, MPH [address] [place] [address] Phone: tel: fax: mailto:[email or web address] Referral ID Status Reason Start Date Expiration Date V isits Requested Visits Authorized [id number] New Request 05/20/2025 1 1 Encounter Details Date Type Department Care Team (Late Contact Info) Description 05/20/2025 Telephone [facility] Surgery [address] [place] [address] Alina Lim MD, MPH [address] [place] [address] [email or web address] Social History Tobacco Use Types Packs/Day Years Used Date Smoking Tobacco: Smoker, Current Status Unknown Education Answer Date Recorded Are you interested [...] Encounters Date Type Department Care Team (Late Contact Info) Description 10/10/2025 11:30 AM EST Follow-Up [facility] Urology [address] [place] [address] Spencer Sidhu MD [address] [place] [address] Scheduled Orders Name Type Priority Associated Diagnoses Orde r Schedule CT Abdomen/Pelvis Imaging Routine Personal history of colon cancer Expected: 05/20/2025, Expires: 08/19/2025 CT Chest Imaging Routine Personal history of colon cancer Expected: 05/20/2025, Expires: 08/19/2025 Carcinoembryonic antigen (CEA) Lab Routine Personal history of colon cancer Expected: 05/20/2025, Expires: 05/20/2026 CBC Lab Routine Personal history of colon cancer Expected: 05/20/2025, Expires: 05/20/2026 Comprehensive metabolic panel Lab Routine Personal history of colon cancer Expected: 05/20/2025, Expires: 05/20/2026 CA 19-9 Lab Routine Personal history of colon cancer Expected: 05/20/2025, Expires: 05/20/2026 documented as of this encounter Visit Diagnoses Diagnosis Personal history of colon cancer- Primary Personal history of malignant neoplasm of large intestine documented in this encounter Care Teams Vat Overhauler Relationship Specialty Start Date End Date Willian Calero MD [address] [place] [address] PCP - General Internal Medicine 08/28/23 Alina Lim MD, MPH [address] [address] [email or web address] General Surgery 08/25/23 documented as of this encounter Additional Source Comments The information contained in this document represents components of the legal health record. It is not the complete legal health record.[facility]
--- OUTSIDE RECORDS SUMMARY | 2025-06-03 15:00 | XMS_ITS | Encounter Summary ---
Author Organization [facility] Address [address] [place] [address] Phone Care Team Providers Care Support Team Member Name Role Phone Alina Lim MD, MPH Unavailable [phone] [phone] [facility] MD Primary Care Provider +1- [phone] Encounter Details Date Type Department Care Team (Late st Contact Info) Description 04/25/2024 Procedure [facility], Ct Scan - [address] [address] Social History Tobacco Use Types Packs/Day Years [...] Info) Description 10/10/2025 11:30 AM EST Follow-Up [facility] Urology [address] [place] [address] Spencer Sidhu MD [address] [place] [address] documented as of this encounter Visit Diagnoses Not on filedocumented in this encounter Care Teams Support Team Member Relationship Specialty Start Date End Date Willian Calero MD [address] [place] [address] PCP - General Internal Medicine 08/28/23 Alina Lim MD, MPH [address] [place] [address] [email or web address] General Surgery 08/25/23 documented as of this encounter Additional Source Comments The information contained in this document represents components of the legal health record. It is not the complete legal health record.[facility]
--- OUTSIDE RECORDS SUMMARY | 2025-06-03 15:00 | XMS_ITS | Encounter Summary ---
Author Organization [facility] Address [address] [place] [address] Phone Care Team Providers Care Wood Piler Name Role Phone Alina Lim MD, MPH Unavailable [phone] [phone] [facility] Primary Care Provider [phone]- [phone] Encounter Details Date Type Department Care Team (Late st Contact Info) Description 04/25/2024 Procedure Pass [facility], Ct Scan - [address] [address] Social History Tobacco Use Types Packs/Day Years [...] Info) Description 10/10/2025 11:30 AM EST Follow-Up [facility] Urology [address] [place] [address] Spencer Sidhu MD [address] [place] [address] documented as of this encounter Visit Diagnoses Not on filedocumented in this encounter Care Teams Wood Piler Relationship Specialty Start Date End Date Willian Calero MD [address] [place] [address] PCP - General Internal Medicine 08/28/23 Alina Lim MD, MPH [address] [place] [address] [email or web address] General Surgery 08/25/23 documented as of this encounter Additional Source Comments The information contained in this document represents components of the legal health record. It is not the complete legal health record.[facility]
== END 2025-06-03 12:05 | disposition home or self-care (01) ==
LOC: HO.10HDL 12:04
PROVIDERS: Visit Provider Internal Medicine Hypertension Specialist
DX: N18.9 Chronic kidney disease, unspecified (principal); D63.1 Anemia in chronic kidney disease; N17.9 Acute kidney failure, unspecified
CPT/HCPCS: 36415; 80053; 81001; 82570; 82728; 83540; 84156; 85025

== ENCOUNTER 2025-06-16 13:22 | Outpatient (REF) | payer OTHER, SELFPAY ==
[2025-06-16 14:53] LABS: Appearance Urine Clear; Glucose Urine UA Negative (Negative); PH 7.5 (5.0-9.0); Specific Gravity - Urine 1.010 (1.005-1.025); UMIC TRIGGER UA YES
--- OUTSIDE RECORDS SUMMARY | 2025-06-16 15:46 | XMS_ITS | Clinical Summary ---
Author Organization [facility] Address [address] [place] [address] Phone Care Team Providers Care Pressure Sealer And Tester Name Role Phone Alina Lim MD, MPH Unavailable [phone] Willian Calero MD Primary Care Provider [phone]- [phone] Allergies Active Allergy Reactions Criticality Noted Date [...] Type Department Care Team Description 05/20/2025 Telephone [facility] Surgery [address] [place] [id number] Alina Lim MD, MPH from Last 3 [...] Info) Description 10/10/2025 11:30 AM EST Follow-Up [facility] Urology [address] [place] [address] Spencer Sidhu MD [address] [place] [address] Health Maintenance Due Date Last Done Comments [...] Devices Not on file Insurance MEDICARE A [employer] [facility] PLUS PPO Care Teams Pressure Sealer And Tester Relationship Specialty Start Date End Date Willian Calero MD [address] [place] [address] PCP - General Internal Medicine 08/28/23 RaphaelAlina cramer MD, MPH [address] [place] [address] [address] [place] [address] [email or web address] General Surgery 08/25/23 Additional Source Comments The information contained in this document represents components of the legal health record. It is not the complete legal health record.[facility]
--- OUTSIDE RECORDS SUMMARY | 2025-06-16 15:46 | XMS_ITS | Encounter Summary ---
Author Organization [facility] Address [address] [place] [address] Care Team Providers Care Railcar Foreman Name Role Phone Pallavi Quesada COOPERATIVE MANAGER Primary Care Provider [phone] Reason for Visit * Reason Comments Appointment Encounter Details Date Type Department Care Team (Late st Contact Info) Description 12/28/2020 Telephone [facility] at [address] [address] Referring, No Appointment Social History [...] on filedocumented in this encounter Care Teams Railcar Foreman Relationship Specialty Start Date End Date Pallavi Quesada, MARCELLA [address] [place] [phone] PCP - General 12/29/20 documented as of this encounter
--- OUTSIDE RECORDS SUMMARY | 2025-06-16 15:47 | XMS_ITS | Encounter Summary ---
Author Organization [facility] Address [address] [facility] [address] [place] [address] Phone Care Team Providers Care Assessment Analyst Name Role Phone Alina Lim MD, MPH Unavailable [phone] Willian Calero MD Primary Care Provider [phone]- [phone] Reason for Referral * MRI/CAT Scan - New Request Specialty Diagnoses / Procedures Referred By Hafsa smith Referred To Contact Radiology Diagnoses Personal history of colon cancer Procedures CT Chest Alina Lim MD, MPH Phone: tel: fax: mailto:[email or web address] Referral ID Status Reason Start Date Expiration Date V isits Requested Visits Authorized [id number] New Request 05/20/2025 1 1 * MRI/CAT Scan - New Request Specialty Diagnoses / Procedures Referred By Hafsa smith Referred To Contact Radiology Diagnoses Personal history of colon cancer Procedures CT Abdomen/Pelvis Alina Lim MD, MPH Phone: tel: fax: mailto:[email or web address] Referral ID Status Reason Start Date Expiration Date V isits Requested Visits Authorized [id number] New Request 05/20/2025 1 1 Encounter Details Date Type Department Care Team (Late Contact Info) Description 05/20/2025 Telephone [facility] Surgery [address] [place] [address] Alina Lim MD, MPH [address] [place] [address] [email or web address] Social History Tobacco Use Types Packs/Day Years [...] Upcoming Encounters Date Type Department Care Team ([facility] Contact Info) Description 10/10/2025 11:30 AM EST Follow-Up [facility] Urology [address] [place] [address] Spencer Sidhu MD [address] [place] [address] Scheduled Orders Name Type Priority Associated Diagnoses [...] intestine documented in this encounter Care Teams Assessment Analyst Relationship Specialty Start Date End Date Willian Calero MD [address] [place] [address] PCP - General Internal Medicine 08/28/23 Alina Lim MD, MPH [address] [place] [address] [email or web address] General Surgery 08/25/23 documented as of this encounter Additional Source Comments The information contained in this document represents components of the legal health record. It is not the complete legal health record.[facility]
--- OUTSIDE RECORDS SUMMARY | 2025-06-16 15:47 | XMS_ITS | Encounter Summary ---
Author Organization [facility] Address [address] [place] [address] Care Team Providers Care Flooring Installer Name Role Phone Pallavi Quesada MANAGER IMAGING Primary Care Provider [phone] -[phone] Encounter Details Date Type Department Care Team (Late st Contact Info) Description 01/25/2021 Telephone [facility] at [address] [place] [phone] Liam Ag MD [address] [place] [address] Social History Tobacco Use Types Packs/Day [...] is requesting pre-op paperwork be faxed to [phone]. Any questions call Oksana at [phone]. Thank you. documented in this encounter Plan of Treatment Not on file documented as of this encounter Visit Diagnoses Not on filedocumented in this encounter Care Teams Flooring Installer Relationship Specialty Start Date End Date Pallavi Quesada NP [address] [facility] [address] [place] [address] PCP - General 12/29/20 documented as of this encounter
--- OUTSIDE RECORDS SUMMARY | 2025-06-16 15:47 | XMS_ITS | Clinical Summary ---
Author Organization [facility] Address [address] [place] [address] Care Team Providers Care Reducer Name Role Phone Unavailable Primary Care Provider [...]
--- OUTSIDE RECORDS SUMMARY | 2025-06-16 15:47 | XMS_ITS | Encounter Summary ---
Author Organization [facility] Address [address] [place] [address] [place] [address] Phone Care Team Providers Care Exceptional Children'S Teacher Name Role Phone Alina Lim MD, MPH Unavailable [phone] [phone] Willian Calero MD Primary Care Provider [phone]- [phone] Encounter Details Date Type Department Care Team (Late st Contact Info) Description 04/25/2024 Procedure Pass [facility], Ct Scan - [address] [address] Social History Tobacco Use Types Packs/Day Years [...] Info) Description 10/10/2025 11:30 AM EST Follow-Up [facility] Urology [address] [place] [address] Spencer Sidhu MD [address] [place] [address] documented as of this encounter Visit Diagnoses Not on filedocumented in this encounter Care Teams Exceptional Children'S Teacher Relationship Specialty Start Date End Date Willian Calero MD [address] [place] [address] PCP - General Internal Medicine 08/28/23 Alina Lim MD, MPH [address] [place] [address] [email or web address] General Surgery 08/25/23 documented as of this encounter Additional Source Comments The information contained in this document represents components of the legal health record. It is not the complete legal health record.[facility]
--- OUTSIDE RECORDS SUMMARY | 2025-06-16 15:47 | XMS_ITS | Encounter Summary ---
Author Organization [facility] Address [address] [place] [address] Care Team Providers Care Human Performance Technologist Name Role Phone Pallavi Quesada STUDENT LIFE DEAN Primary Care Provider [phone] Reason for Visit * Reason Comments Medication Problem Encounter Details Date Type Department Care Team (Late st Contact Info) Description 02/16/2021 Refill [facility] SCH[facility]ULING [address] [place], [place] [address] Liam Ag MD [address] [place] [address] Medication Problem Social History Tobacco [...] on filedocumented in this encounter Care Teams Human Performance Technologist Relationship Specialty Start Date End Date Pallavi Quesada, MARCELLA [address] [place] [address] PCP - General 12/29/20 documented as of this encounter
--- OUTSIDE RECORDS SUMMARY | 2025-06-16 15:47 | XMS_ITS | Encounter Summary ---
Author Organization [facility] Address [address] [facility] [address] [place] [address] Phone Care Team Providers Care Supervisor Patching Name Role Phone Alina Lim MD, MPH Unavailable [phone] [phone] Willian Calero MD Primary Care Provider [phone]- [phone] Encounter Details Date Type Department Care Team (Late st Contact Info) Description 04/25/2024 Procedure Pass [facility], Ct Scan - [address] [address] Social History Tobacco Use Types Packs/Day Years [...] Info) Description 10/10/2025 11:30 AM EST Follow-Up [facility] Urology [address] [place] [address] Spencer Sidhu MD [address] [place] [address] documented as of this encounter Visit Diagnoses Not on filedocumented in this encounter Care Teams Supervisor Patching Relationship Specialty Start Date End Date Willian Calero MD [address] [place] [address] PCP - General Internal Medicine 08/28/23 Alina Lim MD, MPH [address] [place] [address] [email or web address] General Surgery 08/25/23 documented as of this encounter Additional Source Comments The information contained in this document represents components of the legal health record. It is not the complete legal health record.[facility]
--- OUTSIDE RECORDS SUMMARY | 2025-06-16 15:47 | XMS_ITS | Clinical Summary ---
Author Organization [facility] Address [address] [facility] [place] [address] Phone Care Team Providers Care Bee Robber Name Role Phone Barbara Child MD Primary Care Provider [phone] Allergies Active Allergy Reactions Criticality Noted Date [...] Description 04/07/2025 8:30 AM EDT Ancillary Procedure [facility] [address] [phone] Leg swelling 04/02/2025 Telephone [facility] Cardiology [facility] [address] [place] [phone] Isidro [place], [place] 03/26/2025 2:30 PM EDT Ancillary Procedure [facility] [address] [phone] Newly recognized heart murmur from Last 3 [...] Description 08/15/2025 7:40 AM EST Office Visit [facility] [address] [place] [phone] Deidre Foy NP [address] [place] [address] [address] [place] [phone] Health Maintenance Due Date Last Done Comments [...] trendelenburg. Left saphenopopliteal junction was not identified. Accountant Helper Details A mckeon scale, color and doppler analysis ultrasound was performed. During the study longitudinal and transverse views were obtained. Continuous wave doppler and pulsed wave doppler was performed. Overall the study quality was good. us Deidre Foy NP CV VASCULAR PROCEDURES Final R esult * (ABNORMAL) TRANSTHORACIC ECHOCARDIOGRAM (TTE) COMPLETE (03/26/2025 3:19 PM EDT) Left Atrium Minor [place] 5.2 cm CV PACS Left Atrium Major [place] 4.6 cm CV PACS LA Area Sys [...] Volume 80 mL CV PACS MV Deceleration [place] 3.9 m/s2 CV PACS E Wave Deceleration [...] t from Last 3 Months Insurance MEDICARE [facility] Care Teams Bee Robber Relationship Specialty Start Date End Date Barbara Child MD [address] [place] [address] PCP - General Internal Medicine 02/04/25
--- OUTSIDE RECORDS SUMMARY | 2025-06-16 15:47 | XMS_ITS | Clinical Summary ---
Author Organization [address] Address [address] [place] [address] Care Team Providers Care Motorcoach Driver Name Role Phone Pallavi Quesada NP Primary Care Provider [phone] [phone] Allergies Active Allergy Reactions Criticality Noted Date [...] 71 02/10/2021 3:30 PM EDT Temperature 36.6 C (97.9 F) 02/10/2021 4:00 PM EDT Respiratory Rate 16 03/08/2021 11:37 AM EDT [...] adult (Td q 10,TDAP once) 11/03/2018 11/03/2008 RSV Immunization (1 - 1-dose 75+ series) 2024 Influenza vaccine 04/11/2025 06/02/2022 Covid-19 vaccine series ( season) 2025 06/02/2022, 07/12/2021 Colon cancer screening, Colonoscopy Discontinued 08/02/2023 Breast cancer screening Discontinued Cervical cancer screening Discontinued Meningococcal B Vaccine Aged Out No l onger eligible based on patient's age to complete this topic Meningococcal Vaccine Aged Out No rickey rey eligible based on patient's age to complete this topic Insurance [facility] on file MEDICARE [facility] on file MEDICARE [facility] on file MEDICARE Care Teams Motorcoach Driver Relationship Specialty Start Date End Date Pallavi Quesada NP [address] [place] [address] PCP - General 12/29/20
== END 2025-06-16 13:23 | disposition home or self-care (01) ==
LOC: HO.LAB 13:22
PROVIDERS: PCP Internal Medicine; Visit Provider Internal Medicine Hypertension Specialist
DX: N18.9 Chronic kidney disease, unspecified (principal); D63.1 Anemia in chronic kidney disease; Z93.6 Other artificial openings of urinary tract status
CPT/HCPCS: 81001; 87086; 87088; 87186

== ENCOUNTER 2025-07-01 11:43 | Outpatient (REF) | payer OTHER, SELFPAY ==
[2025-07-01 13:33] LABS: Anion Gap 10 (12-20); Blood Urea Nitrogen 27 mg/dL (9-16); Calcium 9.5 mg/dL (8.4-10.2); Carbon Dioxide 24 mmol/L (22-29); Chloride 114 mmol/L (96-108); Estimated Glomerular Filt Rate 31; Potassium 4.9 mmol/L (3.3-5.1); Sodium 143 mmol/L (135-145)
--- OUTSIDE RECORDS SUMMARY | 2025-07-01 15:36 | XMS_ITS | Encounter Summary ---
Author Organization [facility] Address [address] [place] [phone] Care Team Providers Care Sales Counselor Name Role Phone Pallavi Quesada NET DEVELOPER CONSULTANT Primary Care Provider [phone] -[phone] Reason for Visit * Reason Comments Appointment Encounter Details Date Type Department Care Team (Late st Contact Info) Description 12/28/2020 Telephone [facility] at [address] [address] Referring, No Appointment Social History [...] on filedocumented in this encounter Care Teams Sales Counselor Relationship Specialty Start Date End Date Pallavi Quesada, MARCELLA [address] [place] [phone] PCP - General 12/29/20 documented as of this encounter
--- OUTSIDE RECORDS SUMMARY | 2025-07-01 15:36 | XMS_ITS | Encounter Summary ---
Author Organization [facility] Address [address] [place] [address] Care Team Providers Care Quality Liaison Name Role Phone Pallavi Quesada FLYER REPAIRER Primary Care Provider [phone] [phone] Encounter Details Date Type Department Care Team (Late st Contact Info) Description 01/25/2021 Telephone [facility] at [address] [place] [phone] Liam Ag MD [address] [place] [phone] Social History Tobacco Use Types Packs/Day [...] is requesting pre-op paperwork be faxed to [phone]. Any questions call Oksana at [phone]. Thank you. documented in this encounter Plan of Treatment Not on file documented as of this encounter Visit Diagnoses Not on filedocumented in this encounter Care Teams Quality Liaison Relationship Specialty Start Date End Date Pallavi Quesada NP [address] [facility] [address] [place] [address] PCP - General 12/29/20 documented as of this encounter
--- OUTSIDE RECORDS SUMMARY | 2025-07-01 15:36 | XMS_ITS | Encounter Summary ---
Author Organization [facility] Address [address] [place] [phone] Care Team Providers Care Business Analyst Project Manager Name Role Phone Pallavi Quesada LEAN MANAGER Primary Care Provider [phone] [phone] Reason for Visit * Reason Comments Medication Problem Encounter Details Date Type Department Care Team (Late st Contact Info) Description 02/16/2021 Refill [facility]UL[facility] [address] [place], [place] [address] Liam Ag MD [address] [place] [address] Medication Problem Social History Tobacco [...] on filedocumented in this encounter Care Teams Business Analyst Project Manager Relationship Specialty Start Date End Date Pallavi Quesada, MARCELLA [address] [place] [address] PCP - General 12/29/20 documented as of this encounter
--- OUTSIDE RECORDS SUMMARY | 2025-07-01 15:36 | XMS_ITS | Clinical Summary ---
Author Organization [address] Address [address] [place] [phone] Care Team Providers Care Water Plant Maintenance Mechanic Name Role Phone Pallavi Quesada SPECIAL EDUCATION PROFESSOR Primary Care Provider [phone] Allergies Active Allergy Reactions Criticality Noted Date [...] patient's age to complete this topic Insurance [facility] on file MEDICARE [facility] on file MEDICARE [facility] on file MEDICARE Care Teams Water Plant Maintenance Mechanic Relationship Specialty Start Date End Date Pallavi Quesada NP [address] [place] [address] PCP - General 12/29/20
== END 2025-07-01 11:44 | disposition home or self-care (01) ==
LOC: HO.10HDL 11:43
PROVIDERS: PCP Internal Medicine; Visit Provider Internal Medicine Hypertension Specialist
DX: I13.0 Hypertensive heart and chronic kidney disease with heart failure and stage 1 through stage 4 chronic kidney disease, or unspecified chronic kidney disease (principal); N18.9 Chronic kidney disease, unspecified; I50.9 Heart failure, unspecified; D63.1 Anemia in chronic kidney disease; N17.9 Acute kidney failure, unspecified; M81.0 Age-related osteoporosis without current pathological fracture; Z93.6 Other artificial openings of urinary tract status; Z87.891 Personal history of nicotine dependence
CPT/HCPCS: 36415; 80048

== ENCOUNTER 2025-07-01 11:43 | Outpatient (AMB) | payer OTHER, SELFPAY ==
--- NOTE | 2025-07-01 11:45 | HO.NEPHOV ---
Vital Signs 07/01/25 11:46 Height 5 ft 1 in Weight 145 lb BMI 27.4 BP 132/62 Blood Pressure Location Lt brachial Position Sitting Pulse 87 Pulse Source Pulse Oximeter Pulse Oximetry (%) 99 Oxygen Delivery Method Room Air Intake Visit Reasons: 4wks f/u confirmed Contracts Analyst Required: No Accompanied by: Self / Same As Patient Allergies clindamycin (CLINDAMYCIN) Allergy (Severe, Verified 07/01/25 11:47) PURPURA Seasonal Allergies Allergy (Intermediate, Verified 07/01/25 11:47) Congestion Clindamycin HCl Allergy (Unknown, Uncoded 03/20/25 12:18) purpra cilantro Adverse Reaction (Unknown, Uncoded 03/20/25 12:18) Hives Clindamycin Adverse Reaction (Unknown, Uncoded 03/20/25 12:18) purpra Medication List - Last Reconciled 07/01/25 by Amador Vega MD albuterol sulfate 90 mcg/actuation 2 puffs inhalation Q6H PRN cetirizine (Zyrtec) 10 mg PO DAILY PRN cyclobenzaprine 5 mg PO BID PRN dextroamphetamine-amphetamine 20 mg ER 1 cap PO BID 30 days escitalopram oxalate 20 mg PO DAILY furosemide 20 mg PO DAILY gabapentin 300 mg PO BID lorazepam 1 mg PO BID PRN multivitamin (Daily Multi-Vitamin tablet) 1 tab PO DAILY pantoprazole 40 mg PO BID spironolactone 25 mg PO DAILY HPI Comments Details: - The patient is a 75-year-old female presenting for evaluation of kidney function and management of chronic anemia. - Bladder cancer treated with cystectomy in 2015, with urostomy for urinary diversion. - Acute kidney injury with creatinine 1.57 mg/dL in February, fluctuating levels since. She was on Diclofenac and Trimethoprim- both were stopepd few weeks ago [facility] restarted Aleve two a day for severe arthritis - Hypertension noted with BP 102/52 mmHg during recent hospital visit. - Osteoporosis treatment stopped due to elevated creatinine - Heart murmur, on furosemide and spironolactone for edema. - Chronic anemia with hemoglobin around 9.8 g/dL, previously treated with iron infusions. s/p Transfusion in the past 07/01/25 - The patient is a 75-year-old female presenting with CKD and chronic urinary tract infections and iron deficiency anemia. - Chronic urinary tract infections - recently treated with antibiotics; Off trimethoprim ;h/o self-catheterization. - Iron deficiency anemia with symptoms of exhaustion and shortness of breath. - Intolerance to oral iron supplements - Previous iron infusions, last administered two years ago. - Elevated creatinine levels, last recorded at 1.5 mg/dL. Currently taking Diclofenac ! [facility] Medical History (Updated 06/03/25 @ 11:29 by Amador Vega MD) FH: total knee replacement Surgical History Lipoma of back (12/19/22) H/O gastric bypass History of appendectomy History of urostomy Family History Daughter FHx: mental illness Son Substance abuse Social History Housing: Apartment Alcohol intake: current Alcohol intake frequency: a few times a week Alcohol type: wine Patient Tobacco Use Status: Former Tobacco user e-Cigarette/Vaping Use: Never Used Second Hand Smoke Exposure: No service: No Current occupational status: employed and retired Current occupational exposures/hazards: No Cognitive needs: No Hearing needs: No Vision needs: No Physical Exam Vital Signs: Last Vital Signs Pulse 87 07/01/25 11:46 BP 132/62 07/01/25 11:46 Pulse Ox 99 07/01/25 11:46 Oxygen Delivery Method Room Air 07/01/25 11:46 BMI result Body Mass Index 27.4 Comfortable Neck supple no JVD. Lungs entry equal no rales. Heart S1-S2 heard no gallop or rub. Abdomen soft nontender. Neuro alert awake oriented. No asterixis. Extremities no edema. Results Reviewed Nephrology Results: Hgb, (12.0-16.0) 9.7 g/dl L 06/03/25 WBC, (4.8-10.8) 3.6 X10*3/uL L 06/03/25 Plt Count, (160-400) 312 X10*3/uL 06/03/25 Sodium, (135-145) 141 mmol/L 06/03/25 Potassium, (3.3-5.1) 4.9 mmol/L 06/03/25 Chloride, (96-108) 110 mmol/L H 06/03/25 Carbon Dioxide, (22-29) 25 mmol/L 06/03/25 BUN, (9-16) 27 mg/dL H 06/03/25 Creatinine, (0.5-1.4) 1.51 mg/dL H 06/03/25 Calcium, (8.4-10.2) 9.5 mg/dL Δ 06/03/25 Urine Protein, (Neg-Trace) Negative mg/dL 06/16/25 Urine Creatinine 17.02 mg/dL 06/03/25 Assessment & Plan Assessment & Plan (1) DAMIR (acute kidney injury): Code(s): N17.9 - Acute kidney failure, unspecified Category: Medical (2) CKD (chronic kidney disease): Code(s): N18.9 - Chronic kidney disease, unspecified Category: Medical (3) Presence of urostomy: Code(s): Z93.6 - Other artificial openings of urinary tract status Category: Medical (4) Anemia: Code(s): D64.9 - Anemia, unspecified Category: Medical Plan 1. Acute Kidney Injury Most likely due to hypoperfusion from low BP And use of NSAIDS Trimethoprim can elevate creatinine by inhibiting tubular Cr secretions Recent USG done in Urology ( ) was unremarkable. Urine sediments are bland- no evidenceof AGN/AiN - Repeat creatinine levels to monitor improvement. Avoid NSAIDS Avoid hypotension - Review diuretic use impact on kidney function. 2. Chronic Anemia - hemoglobin stable at 9.7 and iron levels low at 8. - Will arrange for IV iron supplementation 3. Osteoporosis - Discontinued medication due to elevated creatinine. - Re-evaluate medication options pending kidney function improvement. Creatininw would improve if she stops NSAIDS 4. Hypertension - Monitor blood pressure due to low readings. No change in meds today 5.h/o CHF MAnagement per cardiology May need to adjust diuretics based on ECHO and renal function Clinically she appears compensated Orders: Orders Basic Metabolic Panel Today N18.9 - Chronic kidney disease, unspecified Coding Level of Care Code Est Pt Level 4 (61845) Diagnoses DAMIR (acute kidney injury) N17.9 CKD (chronic kidney disease) N18.9 Presence of urostomy Z93.6 Anemia D64.9
[2025-07-01 11:46] VITALS: BP 132/62; PULSE 87; O2SAT 99; BMI 27.4
--- OUTSIDE RECORDS SUMMARY | 2025-07-01 15:12 | XMS_ITS | Clinical Summary ---
Author Organization [facility] Address [address] [place] [phone] Phone Care Team Providers Care Field Application Engineer Name Role Phone Kim Jennings MD Primary Care Provider Social History Tobacco Use Types Packs/Day Years Used Date Smoking Tobacco: Never Assessed Comments Unknown Sex and Gender Information Value Date Recorded Sex Assigned at Not on file Legal Sex Female 4:44 PM EST Gender Identity Not on file Sexual Orientation Not on file Plan of Treatment Upcoming Encounters Date Type Department Care Team (Late st Contact Info) Description 07/28/2025 11:30 AM EST Office Visit [facility] [address] [address] Aman Moran MD [facility] [address] Health Maintenance Due Date Last Done Comments Pneumococcal Vaccine: 50+ Ye ars (2 of 2 - PPSV23, PCV20, or PCV21) 06/15/2017 04/20/2017 Influenza Vaccine (#1) 2025 Pneumococcal Vaccine: Peds ( 0 to 5 Years) and At-Risk Patients (6 to 49 Years) Discontinued 04/20/2017 Hepatitis B Vaccine Aged Out No longe r eligible based on patient's age to complete this topic Insurance [employer] Care Teams Field Application Engineer Relationship Specialty Start Date End Date Kim Jennings MD [address] [place] [address] [address] [place] [address] PCP - General Endocrinology 06/19/25
--- OUTSIDE RECORDS SUMMARY | 2025-07-01 15:12 | XMS_ITS | Clinical Summary ---
Author Organization [facility] Address [address] [place] [address] Phone Care Team Providers Care Apparel Designer Name Role Phone Alina Lim MD, MPH Unavailable [phone] Willian Calero MD Primary Care Provider [phone]- [phone] Allergies Active Allergy Reactions Criticality Noted Date [...] Type Department Care Team Description 05/20/2025 Telephone [facility] Surgery [address] [place] [phone] Alina Lim MD, MPH from Last 3 [...] Info) Description 10/10/2025 11:30 AM EST Follow-Up [facility] Urology [address] [place] [address] Spencer Sidhu MD [address] [place] [address] [email or web address] Health Maintenance Due Date Last Done Comments [...] 2024 INFLUENZA VACCINE (#1) 2025 COVID-19 VACCINE (1 - 2024-2 6 season) 2025 HEPATITIS A VACCINES Aged Out [...] Devices Not on file Insurance MEDICARE A [employer] PLUS PPO 2 [facility] Care Teams Apparel Designer Relationship Specialty Start Date End Date Willian Calero MD [address] [place] [phone] PCP - General Internal Medicine 08/28/23 LafayetteAlina MD, MPH [address] [place] [address] [address] [place] [address] [email or web address] General Surgery 08/25/23 Additional Source Comments The information contained in this document represents components of the legal health record. It is not the complete legal health record.[facility]
--- OUTSIDE RECORDS SUMMARY | 2025-07-01 15:12 | XMS_ITS | Encounter Summary ---
Author Organization [facility] Address [address] [facility] [address] [place] [address] Phone Care Team Providers Care Steel Analyst Name Role Phone Alina Lim MD, MPH Unavailable [phone] Willian Calero MD Primary Care Provider [phone]- [phone] Encounter Details Date Type Department Care Team (Late st Contact Info) Description 04/25/2024 Procedure Pass [facility], Ct Scan - [address] [address] Social History Tobacco Use Types Packs/Day Years [...] Info) Description 10/10/2025 11:30 AM EST Follow-Up [facility] Urology [address] [place] [address] Spencer Sidhu MD [address] [place] [address] [email or web address] documented as of this encounter Visit Diagnoses Not on filedocumented in this encounter Care Teams Steel Analyst Relationship Specialty Start Date End Date Willian Calero MD [address] [place] [address] PCP - General Internal Medicine 08/28/23 LincolnwoodAlina MD, MPH [address] [place] [id number] [email or web address] General Surgery 08/25/23 documented as of this encounter Additional Source Comments The information contained in this document represents components of the legal health record. It is not the complete legal health record.[facility]
--- OUTSIDE RECORDS SUMMARY | 2025-07-01 15:13 | XMS_ITS | Encounter Summary ---
Author Organization [facility] Address [address] [facility] [address] [place] [address] Phone Care Team Providers Care Rim Roller Setter Name Role Phone Alina Lim MD, MPH Unavailable [phone] Willian Calero MD Primary Care Provider [phone]- [phone] Encounter Details Date Type Department Care Team (Late st Contact Info) Description 04/25/2024 Procedure Pass [facility], Ct Scan - [address] [address] Social History Tobacco Use Types Packs/Day Years [...] [address] [place] [address] Spencer Sidhu MD [address] [place] [address] [email or web address] documented as of this encounter Visit Diagnoses Not on filedocumented in this encounter Care Teams Rim Roller Setter Relationship Specialty Start Date End Date Willian Calero MD [address] [place] [address] PCP - General Internal Medicine 08/28/23 [place]Alina MD, MPH [address] [place] [phone] [email or web address] General Surgery 08/25/23 documented as of this encounter Additional Source Comments The information contained in this document represents components of the legal health record. It is not the complete legal health record.[facility]
--- OUTSIDE RECORDS SUMMARY | 2025-07-01 15:13 | XMS_ITS | Encounter Summary ---
Author Organization [facility] Address [address] [facility] [address] [place] [address] Phone Care Team Providers Care Tumbler Drier Operator Name Role Phone Alina Lim MD, MPH Unavailable [phone] Willian Calero MD Primary Care Provider [phone]- [phone] Reason for Referral * MRI/CAT Scan - New Request Specialty Diagnoses / Procedures Referred By Hafsa smith Referred To Contact Radiology Diagnoses Personal history of colon cancer Procedures CT Chest Alina Lim MD, MPH Phone: tel: fax: mailto:[email or web address] Referral ID Status Reason Start Date Expiration Date V isits Requested Visits Authorized [id number] New Request 05/20/2025 1 1 * MRI/CAT Scan - New Request Specialty Diagnoses / Procedures Referred By Hafsa smith Referred To Contact Radiology Diagnoses Personal history of colon cancer Procedures CT Abdomen/Pelvis Alina Lim MD, MPH Phone: tel: fax: mailto:[email or web address] Referral ID Status Reason Start Date Expiration Date V isits Requested Visits Authorized [id number] New Request 05/20/2025 1 1 Encounter Details Date Type Department Care Team (Late st Contact Info) Description 05/20/2025 Telephone [facility] Surgery [address] [place] [address] Alina Lim MD, MPH [address] [place] [phone] [email or web address] Social History Tobacco Use Types Packs/Day Years [...] Upcoming Encounters Date Type Department Care Team ([facility] Contact Info) Description 10/10/2025 11:30 AM EST Follow-Up [facility] Urology [address] [place] [address] Spencer Sidhu MD [address] [place] [address] [email or web address] Scheduled Orders Name Type Priority Associated Diagnoses [...] intestine documented in this encounter Care Teams Tumbler Drier Operator Relationship Specialty Start Date End Date Willian Calero MD [address] [place] [address] PCP - General Internal Medicine 08/28/23 Alina Lim MD, MPH [address] [place] [phone] [email or web address] General Surgery 08/25/23 documented as of this encounter Additional Source Comments The information contained in this document represents components of the legal health record. It is not the complete legal health record.[facility]
--- OUTSIDE RECORDS SUMMARY | 2025-07-01 15:13 | XMS_ITS | Clinical Summary ---
Author Organization [facility] Address [address] [place] [address] Care Team Providers Care Fruit Or Nut Farm Worker Name Role Phone Unavailable Primary Care Provider [...]
== END 2025-07-01 14:37 | disposition home or self-care (01) ==
LOC: HO.HKA 11:44
PROVIDERS: PCP Internal Medicine; Visit Provider Internal Medicine Hypertension Specialist
DX: N17.9 Acute kidney failure, unspecified (principal); N18.9 Chronic kidney disease, unspecified; Z93.6 Other artificial openings of urinary tract status; D64.9 Anemia, unspecified
CPT/HCPCS: 99214

== ENCOUNTER 2025-08-04 11:23 | Outpatient (AMB) | payer OTHER, SELFPAY ==
--- NOTE | 2025-08-04 11:31 | A.OFFPC_ITS ---
Vital Signs 08/04/25 11:36 Height 5 ft 1 in Weight 150 lb 4 oz BMI 28.4 BP 126/70 Blood Pressure Location Rt brachial Position Sitting Respiration 12 Pulse 79 Pulse Source Pulse Oximeter Temp 98.1 F Temp Source Oral Pulse Oximetry (%) 98 Oxygen Delivery Method Room Air Intake Visit Reasons: 1/2 h follow up or cpe Intake Note: Physical Brake Assembler Required: No Allergies clindamycin (CLINDAMYCIN) Allergy (Severe, Verified 07/01/25 11:47) PURPURA Seasonal Allergies Allergy (Intermediate, Verified 07/01/25 11:47) Congestion Clindamycin HCl Allergy (Unknown, Uncoded 03/20/25 12:18) purpra cilantro Adverse Reaction (Unknown, Uncoded 03/20/25 12:18) Hives Clindamycin Adverse Reaction (Unknown, Uncoded 03/20/25 12:18) purpra Tobacco use date assessed: 08/04/25 Fall risk assessment: No Falls in past year Last assessed Fall Risk: 08/04/25 Dental Screening Dental Screen Date: 01/14/25 HPI HPI Comments History of Present Illness Details The patient is a 75 year old female with a past medical history of osteoporosis, anemia, cervical DDD, ADD, anxiety, GERD presenting to establish care. Previously following with Dr Calero. CV: Following with PVC. Restarted lasix. Updated echo CKD: Following with nephrology. Discussed cessation of diclofenac. She will trial tramadol in its place. Tylenol is not effective BH: Anxiety/ADD. On lexapro 20mg daily, lorazepam 1mg twice daily, adderall 20mg twice daily. Lots of anxiety, depression and family stress. Cervical DDD: Has been on baclofen, gabapentin. Diclofenac has been more helpful than celebrex but recommend avoidance of NSAIDs given kidney function. Seeing [facility] for right knee and will be following for the neck Sees Junie quesada-Dr Mcgregor Follows with Dr Vega locally. Her son three weeks ago Mammo 04/2025 DXA 04/2024-severe osteoporosis. Will see Dr Kim Gillis-Rob Colonoscopy UTD ROS see HPI PHYSICAL EXAM: GENERAL: Alert and oriented x 3. NAD EYES: EOMI. Anicteric. HENT: Moist mucous membranes. No scleral icterus. No cervical lymphadenopathy. LUNGS: Clear to auscultation bilaterally. CARDIOVASCULAR: Regular rate and rhythm. No JVD. ABDOMEN: Soft, non-tender +bs EXTREMITIES: No edema. Non-tender. SKIN: No rashes or lesions. Warm. NEUROLOGIC: No focal neurological deficits. CN II-XII grossly intact PSYCHIATRIC: Cooperative. Appropriate mood and affect [facility] Medical History FH: total knee replacement Surgical History Lipoma of back (12/19/22) H/O gastric bypass History of appendectomy History of urostomy Family History Daughter FHx: mental illness Son Substance abuse Social History Housing: Apartment Alcohol intake: current Alcohol intake frequency: a few times a week Alcohol type: wine Patient Tobacco Use Status: Former Tobacco user e-Cigarette/Vaping Use: Never Used Second Hand Smoke Exposure: No service: No Current occupational status: employed and retired Current occupational exposures/hazards: No Cognitive needs: No Hearing needs: No Vision needs: No Questionnaire PHQ-9 Over the last 2 weeks, how often have you been bothered by any of the following problems? 1. Little interest or pleasure in doing things: more than half the days 2. Feeling down, depressed, or hopeless: more than half the days 3. Trouble falling or staying asleep, or sleeping too much: several days 4. Feeling tired or having little energy: nearly every day 5. Poor appetite or overeating: nearly every day 6. Feeling bad about yourself - or that you are a failure or have let yourself or your family down: more than half the days 7. Trouble concentrating on things, such as reading the newspaper or watching television: several days 8. Moving or speaking so slowly that other people could have noticed. Or the opposite - being so fidgety or restless that you have been moving around a lot more than usual: not at all 9. Thoughts that you would be better off or of hurting yourself in some way: not at all Total score: 14 Depression Screening Interpretation: Positive Depression Screening Done: Yes 17831 - PHQ-9 Billing: Yes Source: Developed by Drs. Vern Vázquez, Tyra Chaudhary, Jatin Medina and colleagues, with an educational miles from [employer]. Thrive Questionnaire Date Thrive assessed: 01/14/25 I am a: Patient What is your living situation today?: I have a steady place to live Within the past 12 months, did the food you bought not last and you didn't have the money to get more?: Never true Within the past 12 months, did you worry whether your food would run out before you got money to buy more?: Never true Do you have trouble paying for medicines?: No Do you have trouble getting transportation to medical appointments?: No Do you have trouble paying your heating and electricity bill?: No Do you have trouble taking care of your child, family member or friend?: No Do you have trouble with day-to-day activities such as bathing, preparing meals, shopping, managing finances, etc.?: No Are you currently unemployed and looking for a job?: No Are you interested in more education?: Yes Please select the resources that you would like help with: None Currently or been in a relationship where the following occur: No concerns reported THRIVE Score: 0 AUDIT C Alcohol Use Questionnaire (AUDIT-C) 1. How often do you have a drink containing alcohol?: 4 or more times a week 2. How many drinks containing alcohol do you have on a typical day when you are drinking?: 1 or 2 3. How often do you have six or more drinks on one occasion?: Never Total Score: 4 BRANDON-7 AMB Questionnaire BRANDON-7 Date BRANDON - 7 assessed: 01/14/25 Feeling nervous, anxious, or on edge: 3 = Nearly every day Not being able to stop or control worryin = Nearly every day Worrying too much about different things: 1 = Several days Trouble relaxin = Nearly every day Being so restless that it is hard to sit still: 2 = More than half the days Becoming easily annoyed or irritable: 1 = Several days Feeling afraid as if something awful might happen: 2 = More than half the days Total BRANDON-7 score (0-4 normal; 5-9 mild; 10-14 moderate; 15-21 severe): 15 Source: Developed by Drs. Vern Vázquez, Tyra Chaudhary, Jatin Medina and colleagues, with an educational miles from [employer]. Physical exam (Primary Care) Tobacco/Smoking Status: Tobacco use Status Tobacco use date assessed 03/20/25 08/04/25 11:32 Patient Tobacco Use Status Former Tobacco user 08/04/25 11:32 e-Cigarette/Vaping Use Never Used 08/04/25 11:32 PHQ-9: PHQ-9 Score PHQ-9: Total score 14 08/04/25 11:32 Depression Screening Interpretation: Positive Thrive Assessment: Date of Thrive Assessment Date Thrive assessed 01/14/25 08/04/25 11:32 Currently or been in a relationship where the following occur: No concerns reported Results AMB Urinalysis Dipstick UR Leukocytes Negative Last Edit by Mery Renteria CMA on 08/04/25 12:46 UR Nitrite Positive Last Edit by Mery Renteria CMA on 08/04/25 12:46 UR Urobilinogen Normal Last Edit by Mery Renteria CMA on 08/04/25 12:46 UR Protein Negative Last Edit by Mery Renteria CMA on 08/04/25 12:46 UR Ph 6.5 Last Edit by Mery Renteria CMA on 08/04/25 12:46 UR Blood Negative Last Edit by Mery Renteria CMA on 08/04/25 12:46 UR Specific Solway 1.010 Last Edit by Mery Renteria CMA on 08/04/25 12:4 6 UR Ketone Negative Last Edit by Mery Renteria CMA on 08/04/25 12:46 UR Bilirubin Negative Last Edit by Mery Renteria CMA on 08/04/25 12:46 UR Glucose Negative Last Edit by Mery Renteria CMA on 08/04/25 12:46 Coding Level of Care Code Est Pt Prev Care >65y(02516) Diagnoses Physical exam Z00.00 Anxiety F41.9 Obesity (BMI 30.0-34.9) E66.811 Chronic kidney disease, unspecified CKD stage N18.9 Chronic kidney disease stage: unspecified stage Additional Codes PHQ-9 - 84627 - PHQ-9 Billing: Yes ([id number]) Assessment & Plan Assessment & Plan (1) Physical exam: Code(s): Z00.00 - Encounter for general adult medical examination without abnormal findings (2) Anxiety: Code(s): F41.9 - Anxiety disorder, unspecified Category: Medical (3) Obesity (BMI 30.0-34.9): Code(s): E66.811 - Obesity, class 1 Category: Medical (4) CKD (chronic kidney disease): Code(s): N18.9 - Chronic kidney disease, unspecified Category: Medical Qualifiers: Chronic kidney disease stage: unspecified stage Qualified Code(s): N18.9 - Chronic kidney disease, unspecified Plan 75 year old presenting for annual exam Interval history reviewed Preventive measures reviewed BH-anxiety. continue lexapro. Start buspar. Continue lorazepam CV-continue cardiology follow up. Orders: Orders Pathologist Review - CBC Today D64.9 - Anemia, unspecified AMB Urinalysis Dipstick Today N18.9 - Chronic kidney disease, unspecified Medications: New semaglutide (weight loss) (Wegovy) administer weeks 1 through 4 of therapy 0.25 mg (0.5 mL) subcut QWEEK 2 mL 3RF furosemide 20 mg PO DAILY 90 tabs 3RF pantoprazole 40 mg PO BID 180 tabs 3RF Wegovy (semaglutide (weight loss)) administer weeks 1 through 4 of therapy 0.25 mg (0.5 mL) subcut QWEEK 2 mL 3RF NS E66.811 - Obesity, class 1 tramadol 50 mg PO Q8H PRN 21 tabs 0RF pain buspirone 7.5 mg PO BID 180 tabs 3RF Refilled dextroamphetamine-amphetamine 20 mg ER 1 cap PO BID 60 caps 0RF 30 days R41.840 - Attention and concentration deficit lorazepam 1 mg PO BID PRN 60 tabs 3RF anxiety
[2025-08-04 11:36] VITALS: BP 126/70; PULSE 79; RESP 12; TEMP 36.7; O2SAT 98; BMI 28.4
--- OUTSIDE RECORDS SUMMARY | 2025-08-04 15:01 | XMS_ITS | Encounter Summary ---
Author Organization [facility] Address [address] [facility] [address] [place] [address] Phone Care Team Providers Care Vitamin Manager Name Role Phone Alina Lim MD, MPH Unavailable [phone] Willian Calero MD Primary Care Provider [phone]- [phone] Encounter Details Date Type Department Care Team (Late st Contact Info) Description 04/25/2024 Procedure Pass [facility], Ct Scan - [address] [address] Social History Tobacco Use Types Packs/Day Years [...] Info) Description 10/10/2025 11:30 AM EST Follow-Up [facility]rology [address] [place] [address] Spencer Sidhu MD [address] [place] [address] [email or web address] documented as of this encounter Visit Diagnoses Not on filedocumented in this encounter Care Teams Vitamin Manager Relationship Specialty Start Date End Date Willian Calero MD [address] [place] [address] PCP - General Internal Medicine 08/28/23 BerwynAlina MD, MPH [address] [place] [address] [email or web address] General Surgery 08/25/23 documented as of this encounter Additional Source Comments The information contained in this document represents components of the legal health record. It is not the complete legal health record.[facility]
--- OUTSIDE RECORDS SUMMARY | 2025-08-04 15:01 | XMS_ITS | Encounter Summary ---
Author Organization [facility] Address [address] [place] [address] Care Team Providers Care Raw Scales Operator Name Role Phone Pallavi Quesada PHOTOGRAPHY MANAGER Primary Care Provider [phone] Reason for Visit * Reason Comments Medication Problem Encounter Details Date Type Department Care Team (Late st Contact Info) Description 02/16/2021 Refill [facility] SCH[facility]ULING [address] [place], [place] [address] Liam Ag MD [address] [place] [address] Medication Problem Social History Tobacco [...] on filedocumented in this encounter Care Teams Raw Scales Operator Relationship Specialty Start Date End Date Pallavi Quesada, MARCELLA [address] [place] [address] PCP - General 12/29/20 documented as of this encounter
--- OUTSIDE RECORDS SUMMARY | 2025-08-04 15:01 | XMS_ITS | Clinical Summary ---
Author Organization [address] Address [address] [place] [address] Care Team Providers Care Bookkeeping Teacher Name Role Phone Pallavi Quesada NP Primary Care Provider [phone] Allergies Active Allergy Reactions Criticality Noted Date [...] Vaccine (50+ years) (2 of 2 - PCV20 or PCV21) 04/20/2018 04/20/2017 Tetanus adult (Td q 10,TDAP [...] patient's age to complete this topic Insurance [facility] on file MEDICARE [facility] on file MEDICARE [facility] on file MEDICARE Care Teams Bookkeeping Teacher Relationship Specialty Start Date End Date Pallavi Quesada NP [address] [place] [phone] PCP - General 12/29/20
--- OUTSIDE RECORDS SUMMARY | 2025-08-04 15:01 | XMS_ITS | Clinical Summary ---
Author Organization [facility] Address [address] [facility] [place] [address] Phone Care Team Providers Care Mechanical Facilities Technician Name Role Phone aBrbara Child MD Primary Care Provider [phone] Allergies Active Allergy Reactions Criticality Noted Date [...] Description 08/15/2025 7:40 AM EST Office Visit [facility] [address] [place] [address] Deidre Foy NP [address] [place] [address] [address] [place] [address] Health Maintenance Due Date Last Done Comments [...] age to complete this topic Insurance MEDICARE [facility] Care Teams Mechanical Facilities Technician Relationship Specialty Start Date End Date Barbara Child MD [address] [place] [address] [place] [phone] PCP - General Internal Medicine 02/04/25
--- OUTSIDE RECORDS SUMMARY | 2025-08-04 15:01 | XMS_ITS | Encounter Summary ---
Author Organization [facility] Address [address] [place] [address] Care Team Providers Care Business Analysis Consultant Name Role Phone Pallavi Quesada ETHYLENE PLANT OPERATOR Primary Care Provider [phone] Reason for Visit * Reason Comments Appointment Encounter Details Date Type Department Care Team (Late st Contact Info) Description 12/28/2020 Telephone [facility] at [address] [address] Referring, No Appointment Social History [...] filedocumented in this encounter Care Teams Business Analysis Consultant Relationship Specialty Start Date End Date Pallavi Quesada, MARCELLA [address] [place] [phone] PCP - General 12/29/20 documented as of this encounter
--- OUTSIDE RECORDS SUMMARY | 2025-08-04 15:01 | XMS_ITS | Encounter Summary ---
Author Organization [facility] Address [address] [place] [address] Care Team Providers Care Truck Engine Assembler Name Role Phone Pallavi Quesada FORKLIFT MECHANIC Primary Care Provider [phone] Encounter Details Date Type Department Care Team (Late st Contact Info) Description 01/25/2021 Telephone [facility] at [address] [place] [phone] Liam Ag MD [address] [place] [phone] Social History Tobacco Use Types Packs/Day [...] is requesting pre-op paperwork be faxed to [phone]. Any questions call Oksana at [phone]. Thank you. documented in this encounter Plan of Treatment Not on file documented as of this encounter Visit Diagnoses Not on filedocumented in this encounter Care Teams Truck Engine Assembler Relationship Specialty Start Date End Date Pallavi Quesada NP [address] [facility] [address] [place] [address] PCP - General 12/29/20 documented as of this encounter
--- OUTSIDE RECORDS SUMMARY | 2025-08-04 15:01 | XMS_ITS | Encounter Summary ---
Author Organization [facility] Address [address] [facility] [address] [place] [address] Phone Care Team Providers Care Labor And Delivery Nurse Name Role Phone Alina Lim MD, MPH Unavailable [phone] Willian Calero MD Primary Care Provider [phone] Encounter Details Date Type Department Care Team (Late st Contact Info) Description 04/25/2024 Procedure Pass [facility], Ct Scan - [address] [address] Social History Tobacco Use Types Packs/Day Years [...] Info) Description 10/10/2025 11:30 AM EST Follow-Up [facility] Urology [address] [place] [address] Spencer Sidhu MD [address] [place] [address] [email or web address] documented as of this encounter Visit Diagnoses Not on filedocumented in this encounter Care Teams Labor And Delivery Nurse Relationship Specialty Start Date End Date Willian Calero MD [address] [place] [address] PCP - General Internal Medicine 08/28/23 ChugwaterAlina MD, MPH [address] [place] [phone] [email or web address] General Surgery 08/25/23 documented as of this encounter Additional Source Comments The information contained in this document represents components of the legal health record. It is not the complete legal health record.[facility]
--- OUTSIDE RECORDS SUMMARY | 2025-08-04 15:01 | XMS_ITS | Clinical Summary ---
Author Organization [facility] Address [address] [place] [address] Phone Care Team Providers Care Camp Boss Name Role Phone Alina Lim MD, MPH Unavailable [phone] Willian Calero MD Primary Care Provider [phone] Allergies Active Allergy Reactions Criticality Noted Date [...] Encounters Date Type Department Care Team Description 07/20/2025 Refill [facility] Urology [address] [place] [address] Spencer Sidhu MD Medication Refill 05/20/2025 Telephone [facility] Surgery [address] [place] [address] Alina Lim MD, MPH from Last 3 [...] Info) Description 10/10/2025 11:30 AM EST Follow-Up [facility] Urology [address] [place] [address] Spencer Sidhu MD [address] [place] [address] [email or web address] Due Date Last Done Comments LIPID PANEL 1949 DEPRESSION SCREENING 1961 SMOKING Hx and SMOKELESS TOB ACCO SCREENING 1962 HEPATITIS C SCREENING 1967 ZOSTER VACCINES (1 of 2) 1968 OSTEOPOROSIS SCREENING INITI AL (ONE-TIME) 2014 PNEUMOCOCCAL VACCINES (50+ y ears) (2 of 2 - PPSV23, PCV20, or PCV21) 06/15/2017 04/20/2017 Adult Td,Tdap Booster 11/03/2018 11/03/2008 RSV VACCINE (1 - 1-dose 75+ series) 2024 INFLUENZA VACCINE (#1) 2025 COVID-19 VACCINE ( - 2024-2 6 season) 2025 HEPATITIS A [...] Devices Not on file Insurance MEDICARE [employer] PPO Care Teams Camp Boss Relationship Specialty Start Date End Date Willian Calero MD [address] [place] [place] [address] PCP - General Internal Medicine 08/28/23 Alina Lim MD, MPH [address] [place] [address] [phone] [address] [place] [address] [email or web address] General Surgery 08/25/23 Additional Source Comments The information contained in this document represents components of the legal health record. It is not the complete legal health record.[facility]
--- OUTSIDE RECORDS SUMMARY | 2025-08-04 15:02 | XMS_ITS | Encounter Summary ---
Author Organization [facility] Address [address] [place] [address] Phone Care Team Providers Care Oracle Applications Developer Name Role Phone Alina Lim MD, MPH Unavailable [phone] Willian Calero MD Primary Care Provider [phone]- [phone] Reason for Visit * Reason Comments Medication Refill Encounter Details Date Type Department Care Team (Late st Contact Info) Description 07/20/2025 Refill [facility] Urology [address] [place] [address] Spencer Sidhu MD [address] [place] [address] [email or web address] Medication Refill Social History Tobacco Use Types Packs/Day Years [...] on file documented as of this encounter Progress Notes * Carol Prieto LPN - 07/21/2025 8:37 AM EST Pt Requested Refill request submitted to provider for review and prescribing as appropriate documented in this encounter Plan of Treatment Upcoming Encounters Date Type Department Care Team (Late st Contact Info) Description 10/10/2025 11:30 AM EST Follow-Up [facility] Urology [address] [place] [address] Spencer Sidhu MD [address] [place] [address] [email or web address] documented as of this encounter Visit Diagnoses Diagnosis Urinary tract infection Urinary tract infection, site not specified documented in this encounter Care Teams Oracle Applications Developer Relationship Specialty Start Date End Date Willian Calero MD [address] [place] [address] PCP - General Internal Medicine 08/28/23 Alina Lim MD, MPH [address] [place] [address] [email or web address] General Surgery 08/25/23 documented as of this encounter Additional Source Comments The information contained in this document represents components of the legal health record. It is not the complete legal health record.[facility]
--- OUTSIDE RECORDS SUMMARY | 2025-08-04 15:02 | XMS_ITS | Encounter Summary ---
Author Organization [facility] Address [address] [facility] [address] [place] [address] Phone Care Team Providers Care Sprinkler Fitter Helper Name Role Phone Alina Lim MD, MPH Unavailable [phone] Willian Calero MD Primary Care Provider [phone]- [phone] Reason for Referral * MRI/CAT Scan - New Request Specialty Diagnoses / Procedures Referred By Hafsa smith Referred To Contact Radiology Diagnoses Personal history of colon cancer Procedures CT Chest Alina Lim MD, MPH Phone: tel: fax: [email or web address] Referral ID Status Reason Start Date Expiration Date V isits Requested Visits Authorized [id number] New Request 05/20/2025 1 1 * MRI/CAT Scan - New Request Specialty Diagnoses / Procedures Referred By Hafsa smith Referred To Contact Radiology Diagnoses Personal history of colon cancer Procedures CT Abdomen/Pelvis Alina Lim MD, MPH Phone: tel: fax: [email or web address]:[email or web address] Referral ID Status Reason Start Date Expiration Date V isits Requested Visits Authorized [id number] New Request 05/20/2025 1 1 Encounter Details Date Type Department Care Team (Late st Contact Info) Description 05/20/2025 Telephone [facility] Surgery [address] [place] [address] Alina Lim MD, MPH [address] [place] [phone] [email or web address] Social History Tobacco Use Types Packs/Day Years [...] Upcoming Encounters Date Type Department Care Team ([facility] Contact Info) Description 10/10/2025 11:30 AM EST Follow-Up [facility] Urology [address] [place] [address] Spencer Sidhu MD [address] [place] [address] [email or web address] Scheduled Orders Name Type Priority Associated Diagnoses [...] intestine documented in this encounter Care Teams Sprinkler Fitter Helper Relationship Specialty Start Date End Date Willian Calero MD [address] [place] [address] PCP - General Internal Medicine 08/28/23 Alina Lim MD, MPH [address] [place] [phone] [email or web address] General Surgery 08/25/23 documented as of this encounter Additional Source Comments The information contained in this document represents components of the legal health record. It is not the complete legal health record.[facility]
--- OUTSIDE RECORDS SUMMARY | 2025-08-04 15:02 | XMS_ITS | Clinical Summary ---
Author Organization [facility] Address [address] [place] [address] Care Team Providers Care Epic Willow Analyst Name Role Phone Unavailable Primary Care Provider [...]
== END 2025-08-04 12:26 | disposition home or self-care (01) ==
LOC: HO.HMCFM 11:24
PROVIDERS: PCP Internal Medicine; Visit Provider Internal Medicine
DX: Z00.00 Encounter for general adult medical examination without abnormal findings (principal); E66.811 Obesity, class 1; N18.9 Chronic kidney disease, unspecified; Z68.28 Body mass index [BMI] 28.0-28.9, adult; F41.9 Anxiety disorder, unspecified

== ENCOUNTER 2025-08-04 11:23 | Outpatient (REF) | payer OTHER, SELFPAY ==
[2025-08-04 14:24] LABS: Appearance Urine Clear; Glucose Urine UA Negative (Negative); PH 7.0 (5.0-9.0); Specific Gravity - Urine 1.010 (1.005-1.025); UMIC TRIGGER UACC YES
[2025-08-04 14:27] LABS: MANUAL DIFF FLAG NO
[2025-08-04 14:33] LABS: UACC Culture Trigger YES
[2025-08-04 14:37] LABS: Hematocrit 32.3 % (37.0-47.0); Hemoglobin 9.6 g/dl (12.0-16.0); Imm Gran Abs Auto 0.01 X10*3/uL (0.00-0.03); Imm Gran Pct Auto 0.2 % (0.0-0.4); Lymphocytes Absolute Auto 0.9 X10*3/uL (1.2-4.9); Mean Corpuscular HGB Conc 29.7 g/dl (31.0-35.0); Mean Corpuscular Hemoglobin 27.6 pg (27.0-33.0); Mean Corpuscular Volume 92.8 fL (80.0-98.0); NRBC Abs Auto 0.000 X10*3/uL (0.0-0.012); NRBC Pct Auto 0.0 /100WBC (0.0-0.2); Platelet Count 273 X10*3/uL (160-400); Red Blood Count 3.48 X10*6/uL (4.20-5.50); White Blood Count 4.3 X10*3/uL (4.8-10.8)
[2025-08-04 15:29] LABS: Folate 16.9 ng/mL (> or = 4.0); Vitamin B12 468 pg/mL (200-900)
[2025-08-04 16:38] LABS: Anion Gap 11 (12-20)
[2025-08-04 16:43] LABS: Alanine Aminotransferase 51 U/L (0-31); Albumin Level 4.5 g/dL (3.5-5.0); Alkaline Phosphatase 65 U/L (39-117); Aspartate Amino Transferase 34 U/L (5-31); Blood Urea Nitrogen 26 mg/dL (9-16); Calcium 9.3 mg/dL (8.4-10.2); Carbon Dioxide 24 mmol/L (22-29); Chloride 111 mmol/L (96-108); Cholesterol 182 mg/dL (<200); Estimated Glomerular Filt Rate 33; HDL Cholesterol 101 mg/dL (>40); Iron 82 mcg/dL (30-160); Percent Iron Saturation 26 % (15-50); Potassium 4.9 mmol/L (3.3-5.1); Sodium 141 mmol/L (135-145); Total Iron Binding Capacity 321 mcg/dL (228-428); Total Protein 7.0 g/dL (6.5-8.0); Triglycerides 69 mg/dL (<150); Unsaturated Iron Binding 239 ug/dL
== END 2025-08-04 11:24 | disposition home or self-care (01) ==
LOC: HO.WFDLDS 11:23
PROVIDERS: Nurse Practitioner Family; PCP Internal Medicine; Visit Provider Internal Medicine
DX: Z00.00 Encounter for general adult medical examination without abnormal findings (principal); Z13.228 Encounter for screening for other metabolic disorders; D64.9 Anemia, unspecified; F43.9 Reaction to severe stress, unspecified; M17.10 Unilateral primary osteoarthritis, unspecified knee; N18.9 Chronic kidney disease, unspecified; R30.0 Dysuria; F41.9 Anxiety disorder, unspecified; E66.811 Obesity, class 1; Z87.891 Personal history of nicotine dependence; Z68.28 Body mass index [BMI] 28.0-28.9, adult
CPT/HCPCS: 80053; 80061; 81001; 81002; 82607; 82746; 83540; 84443; 85025; 87086; 87088; 87186; 96127

== ENCOUNTER 2025-08-28 | Outpatient (REF) | payer OTHER, SELFPAY ==
--- OUTSIDE RECORDS SUMMARY | 2025-09-02 10:10 | XMS_ITS | Clinical Summary ---
Author Organization [facility] Address [address] [place] [address] Phone Care Team Providers Care Manager Installation Name Role Phone Alina Lim MD, MPH Unavailable [phone] [phone] Willian Calero MD Primary Care Provider +1- [phone] Allergies Active Allergy Reactions Criticality Noted Date Comments Adhesive Rash Low 10/04/2023 Clindamycin Hcl Bleeding High 10/04/2023 Medications acetic acid 0.25% irrigationIndi cations:Urinar y tract infection Irrigate with as directed as needed. To be used as directed for bladder irrigation 1000 mL 03/19/20 24 Active nystatin ointment Apply topically to affected area 2 (two) times a day. 30 g 2 10/11/19 25 Active trimethoprim (TRIMPEX) 100 mg tabletIndicati ons:Urinary tract infection TAKE 1 TABLET (100 MG TOTAL) BY MOUTH DAILY. FOR UTI PROPHYLAXIS 90 tablet 3 08/13/20 25 Active trimethoprim (TRIMPEX) 100 mg tabletIndicati ons:Urinary tract infection TAKE 1 TABLET (100 MG TOTAL) BY MOUTH DAILY. FOR UTI PROPHYLAXIS 90 tablet 3 06/10/20 24 025 Discontinued Active Problems Problem Noted Date Diagnosed Date [...] Encounters Date Type Department Care Team Description 08/20/2025 Orders Only [facility] [address] [place] [address] Terri Brink MA Carcinoma of bladder (Primary Dx) 07/20/2025 Refill [facility] [address] [place] [address] Spencer Sidhu MD Medication Refill from Last 3 Months Immunizations Immunization Administration [...] Info) Description 10/10/2025 11:30 AM EST Follow-Up [facility] [address] [place] [address] Spencer Sidhu MD [address] [place] [address] [email or web address] Health Maintenance Due Date Last Done Comments [...] Devices Not on file Insurance MEDICARE [facility] PLUS PPO Care Teams Manager Installation Relationship Specialty Start Date End Date Willian Calero MD [address] [place] [address] PCP - General Internal Medicine 08/28/23 Alina Lim MD, MPH [address] [place] [address] [email or web address] General Surgery 08/25/23 Additional Source Comments The information contained in this document represents components of the legal health record. It is not the complete legal health record.[facility]
--- OUTSIDE RECORDS SUMMARY | 2025-09-02 10:10 | XMS_ITS | Clinical Summary ---
Author Organization [address] Address [address] [place] [address] Care Team Providers Care Roving Court Reporter Name Role Phone Pallavi Quesada NP Primary Care Provider [phone] [phone] Allergies Active Allergy Reactions Criticality Noted Date [...] patient's age to complete this topic Insurance [facility] on file MEDICARE [facility] on file MEDICARE [facility] on file MEDICARE Care Teams Roving Court Reporter Relationship Specialty Start Date End Date Pallavi Quesada NP [address] [place] [phone] PCP - General 12/29/20
--- OUTSIDE RECORDS SUMMARY | 2025-09-02 10:10 | XMS_ITS | Clinical Summary ---
Author Organization [facility] Address [address] [facility] [place] [address] Phone Care Team Providers Care Sales Representative Printing Supplies Name Role Phone Barbara Child MD Primary Care Provider [phone] Allergies Active Allergy Reactions Criticality Noted Date [...] age to complete this topic Insurance MEDICARE [facility] Care Teams Sales Representative Printing Supplies Relationship Specialty Start Date End Date Barbara Child MD [address] [place] [address] PCP - General Internal Medicine 02/04/25
--- OUTSIDE RECORDS SUMMARY | 2025-09-02 10:10 | XMS_ITS | Encounter Summary ---
Author Organization [facility] Address [address] [facility] [address] [place] [address] Phone Care Team Providers Care Supervisor Bakery Sanitation Name Role Phone Alina Lim MD, MPH Unavailable [phone] Willian Calero MD Primary Care Provider [phone] Encounter Details Date Type Department Care Team (Late st Contact Info) Description 04/25/2024 Procedure Pass [facility], Ct Scan - [address] [address] Social History Tobacco Use Types Packs/Day Years [...] Info) Description 10/10/2025 11:30 AM EST Follow-Up [facility] [address] [place] [address] Spencer Sidhu MD [address] [place] [address] [email or web address] documented as of this encounter Visit Diagnoses Not on filedocumented in this encounter Care Teams Supervisor Bakery Sanitation Relationship Specialty Start Date End Date Willian Calero MD [address] [place] [address] PCP - General Internal Medicine 08/28/23 MillertonAlina MD, MPH [address] [place] [address] [email or web address] General Surgery 08/25/23 documented as of this encounter Additional Source Comments The information contained in this document represents components of the legal health record. It is not the complete legal health record.[facility]
--- OUTSIDE RECORDS SUMMARY | 2025-09-02 10:10 | XMS_ITS | Clinical Summary ---
Author Organization [facility] Address [address] [place] [address] Care Team Providers Care Workers Compensation Claims Supervisor Name Role Phone None, Pcp MD Primary Care Provider Unavailabl e Allergies Active Allergy Reactions Criticality Noted Date Comments Clindamycin Hives High 04/08/2016 Purpura Hydromorphone GI Intolerance 07/28/2016 Morphine GI Intolerance 01/20/2016 Severe headache N&V Medications citalopram (CeleXA) 20 MG tablet Take 40 mg by mouth daily. Active buPROPion (WELLBUTRIN) 100 MG tablet Take 100 mg by mouth Every morning and every evening. Active LORazepam (ATIVAN) 0.5 MG tablet Take 1 mg by mouth every 6 hours as needed for anxiety. Active carisoprodol (SOMA) 350 MG tablet Take 350 mg by mouth 4 (four) times a day as needed for muscle spasms. Active multivitamin per tablet Take 1 tablet by mouth daily. Active cetirizine (ZyrTEC) 1 mg/mL syrup Take 10 mg by mouth daily. Active ferrous sulfate 325 (65 FE) MG tablet Take 325 mg by mouth daily with breakfast. Active zolpidem (AMBIEN) 5 MG tablet Take 5 mg by mouth at bedtime as needed for insomnia. Active ascorbic acid, vitamin C, (VITAMIN C) 1000 MG tablet Take 1 tablet (1,000 mg total) by mouth daily. 30 tablet 6 6 Active vitamin E external oil Apply topically daily. 1 vial 11 6 Active spironolactone (ALDACTONE) 100 MG tablet Take 100 mg by mouth every morning & every evening. Active ondansetron (ZOFRAN) 4 MG tablet Take 4 mg by mouth every 8 hours as needed for nausea. Active methenamine hippurate (HIPREX) 1 gram tablet Take 1 tablet (1 g total) by mouth daily after breakfast. 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 05/10/2016 Abnormal EKG 05/10/2016 History of bladder surgery 05/10/2016 Cardiac murmur 05/10/2016 Status post gastric bypass for obesity 6 Status post panniculectomy 05/10/2016 S/P umbilical hernia repair, follow-up exam 04/13 History of left knee replacement 05/10/2016 S/P laparoscopic appendectomy 05/10/2016 Social History Tobacco Use Types Packs/Day Years Used Date Smoking Tobacco: Former Cigarettes 1 10 0 05/10/1974 - 05/10/1984 Alcohol Use Standard Drinks/Week Comments Yes 7 (1 standard drink = 0.6 oz pur e alcohol) Comments No Sex and Gender Information Value Date Recorded Sex Assigned at Not on file Legal Sex Female 3:48 PM EDT Gender Identity Not on file Sexual Orientation Not on file Last Filed Vital Signs Vital Sign Reading Time Taken Comments Blood Pressure 108/66 09/02/2016 8:51 AM EST Pulse 100 09/02/2016 8:51 AM EST Temperature 36.4 C (97.6 F) 09/02/2016 8:51 AM EST Respiratory Rate 16 2016 7:00 AM EDT Oxygen Saturation 94% 2016 7:00 AM EDT Inhaled Oxygen Concentration - - Weight 64.4 kg (142 lb) 09/02/2016 8:51 AM EST Height 157.5 cm (5' 2 ) 09/02/2016 8:51 AM EST Body Mass Index 25.97 09/02/2016 8:51 AM EST Plan of Treatment Not on file Medical Devices Implanted Type Area Director Agricultural Services Device Identifier Shelf Expiration Date Model / Serial / Lot Stent Single J 7 X 90 (0136) - [id number] Implanted:Qty: 1 on 05/24/2016 by Spencer Sidhu MD at [facility] BUR Stent N/A: Ureter [employer] 11/25/2020 [id number] / / [id number] Description:bilateral ureter s Insurance Advance Directives Documents on File Type Date Recorded Patient Manager Audio Expl anation Health Care Proxy 05/10/2016 12:41 PM EBER slaughter Care Proxy/Advance Directive * Full Code (Latest Code Status on File) Date Activated Date Inactivated Comments 05/24/2016 9:14 PM 2016 4:16 PM Healthcare Agents on File Name Relationship Healthcare Agent Relationshi p Communication Harsha Denise Spouse Health Care Agent Tiki Denise Daughter Health Care Agent - Medina rnate Care Teams Workers Compensation Claims Supervisor Relationship Specialty Start Date End Date None, PcpMD PCP - General 09/21/18
--- OUTSIDE RECORDS SUMMARY | 2025-09-02 10:10 | XMS_ITS | Encounter Summary ---
Author Organization [facility] Address [address] [facility] [address] [place] [address] Phone Care Team Providers Care Gambling Broker Name Role Phone Alina Lim MD, MPH Unavailable [phone] Willian Calero MD Primary Care Provider [phone] Reason for Referral * MRI/CAT Scan - New Request Specialty Diagnoses / Procedures Referred By Hafsa smith Referred To Contact Radiology Diagnoses Personal history of colon cancer Procedures CT Chest Alina Lim MD, MPH Phone: tel: fax: mailto:[email or web address] Referral ID Status Reason Start Date Expiration Date V isits Requested Visits Authorized [id number] New Request 05/20/2025 1 1 * MRI/CAT Scan - New Request Specialty Diagnoses / Procedures Referred By Hafsa smith Referred To Contact Radiology Diagnoses Personal history of colon cancer Procedures CT Abdomen/Pelvis Alina Lim MD, MPH Phone: tel: fax: mailto:[email or web address] Referral ID Status Reason Start Date Expiration Date V isits Requested Visits Authorized [id number] New Request 05/20/2025 1 1 Encounter Details Date Type Department Care Team (Late st Contact Info) Description 05/20/2025 Telephone [facility] [address] [place] [address] Alina Lim MD, MPH [address] [place] [phone] [email or web address] Social History Tobacco Use Types [...] Upcoming Encounters Date Type Department Care Team ([facility] Contact Info) Description 10/10/2025 11:30 AM EST Follow-Up [facility] [address] [place] [address] Spencer Sidhu MD [address] [place] [address] [email or web address] Scheduled Orders Name Type Priority Associated Diagnoses [...] intestine documented in this encounter Care Teams Gambling Broker Relationship Specialty Start Date End Date Willian Calero MD [address] [place] [address] PCP - General Internal Medicine 08/28/23 Alina Lim MD, MPH [address] [place] [address] [email or web address] General Surgery 08/25/23 documented as of this encounter Additional Source Comments The information contained in this document represents components of the legal health record. It is not the complete legal health record.[facility]
--- OUTSIDE RECORDS SUMMARY | 2025-09-02 10:10 | XMS_ITS | Encounter Summary ---
Author Organization [facility] Address [address] [place] [address] Care Team Providers Care Tile Designer Name Role Phone Pallavi Quesada CLOTH BLEACHING RANGE BACK TENDER Primary Care Provider [phone] -[phone] Encounter Details Date Type Department Care Team (Late st Contact Info) Description 01/25/2021 Telephone [facility] [address] [place] [phone] Liam Ag MD [address] [place] [address] Social History Tobacco Use Types Packs/Day [...] is requesting pre-op paperwork be faxed to [phone]. Any questions call Oksana at [phone]. Thank you. documented in this encounter Plan of Treatment Not on file documented as of this encounter Visit Diagnoses Not on filedocumented in this encounter Care Teams Tile Designer Relationship Specialty Start Date End Date Pallavi Quesada NP [address] [place] [address] PCP - General 12/29/20 documented as of this encounter
--- OUTSIDE RECORDS SUMMARY | 2025-09-02 10:10 | XMS_ITS | Clinical Summary ---
Author Organization [facility] Prior to 02/08/25 Address [address] [place] [address] Care Team Providers Care Respiratory Therapy Instructor Name Role Phone Unavailable Primary Care Provider [...]
--- OUTSIDE RECORDS SUMMARY | 2025-09-02 10:10 | XMS_ITS | Encounter Summary ---
Author Organization [facility] Address [address] [facility] [address] [place] [address] Phone Care Team Providers Care Wood Pole Treater Name Role Phone Alina Lim MD, MPH Unavailable [phone] [phone] Willian Calero MD Primary Care Provider +1- [phone] Encounter Details Date Type Department Care Team (Late st Contact Info) Description 04/25/2024 Procedure Pass [facility], Ct Scan - [address] [address] Social History Tobacco Use Types Packs/Day Years [...] Info) Description 10/10/2025 11:30 AM EST [facility] [address] [place] [address] Spencer Sidhu MD [address] [place] [address] [email or web address] documented as of this encounter Visit Diagnoses Not on filedocumented in this encounter Care Teams Wood Pole Treater Relationship Specialty Start Date End Date Willian Calero MD [address] [place] [address] PCP - General Internal Medicine 08/28/23 Rush CenterAlina MD, MPH [address] [place] [address] [email or web address] General Surgery 08/25/23 documented as of this encounter Additional Source Comments The information contained in this document represents components of the legal health record. It is not the complete legal health record.[facility]
--- OUTSIDE RECORDS SUMMARY | 2025-09-02 10:10 | XMS_ITS | Encounter Summary ---
Author Organization [facility] Address [address] [place] [address] Care Team Providers Care Director Of Guidance In Public Schools Name Role Phone Pallavi Quesada MANUSCRIPT EDITOR Primary Care Provider +1 -[phone] Reason for Visit * Reason Comments Medication Problem Encounter Details Date Type Department Care Team (Late st Contact Info) Description 02/16/2021 Refill [facility] SCHEDULING [address] [place], [place] [address] Liam Ag MD [address] [place] [address] Medication Problem Social History Tobacco [...] on filedocumented in this encounter Care Teams Director Of Guidance In [employer] Relationship Specialty Start Date End Date Pallavi Quesada, MARCELLA [address] [place] [address] PCP - General 12/29/20 documented as of this encounter
--- OUTSIDE RECORDS SUMMARY | 2025-09-02 10:10 | XMS_ITS | Encounter Summary ---
Author Organization [facility] Address [address] [place] [address] Care Team Providers Care Staff Psychiatrist Name Role Phone Pallavi Quesada POWER WASHER Primary Care Provider [phone] [phone] Reason for Visit * Reason Comments Appointment Encounter Details Date Type Department Care Team (Late st Contact Info) Description 12/28/2020 Telephone [facility] [address] [address] Referring, No Appointment Social History [...] on filedocumented in this encounter Care Teams Staff Psychiatrist Relationship Specialty Start Date End Date Pallavi Quesada, MARCELLA [address] [place] [phone] PCP - General 12/29/20 documented as of this encounter
== END 2025-08-28 00:01 | disposition home or self-care (01) ==
LOC: CF
PROVIDERS: Visit Provider Internal Medicine
DX: Z78.9 Other specified health status (principal)
CPT/HCPCS: 81003; 87086

== ENCOUNTER 2025-08-28 08:32 | Outpatient (REF) | payer SELFPAY ==
--- OUTSIDE RECORDS SUMMARY | 2025-08-28 08:58 | XMS_ITS | Encounter Summary ---
Author Organization [facility] and [facility] Address [address] [place] [address] Care Team Providers Care System Admin Name Role Phone Pallavi Quesada LOCKSTITCH LINING SETTER Primary Care Provider [phone] [phone] Encounter Details Date Type Department Care Team (Late st Contact Info) Description 01/25/2021 Telephone [facility] [address] [place] [address] [phone] Liam Ag MD [address] [place] [address] Social History Tobacco Use Types Packs/Day [...] is requesting pre-op paperwork be faxed to [phone]. Any questions call Oksana at [phone]. Thank you. documented in this encounter Plan of Treatment Not on file documented as of this encounter Visit Diagnoses Not on filedocumented in this encounter Care Teams System Admin Relationship Specialty Start Date End Date Pallavi Quesada NP [address] [facility] [address] [place] [address] PCP - General 12/29/20 documented as of this encounter
--- OUTSIDE RECORDS SUMMARY | 2025-08-28 08:58 | XMS_ITS | Encounter Summary ---
Author Organization [facility] and [facility] Address [address] [place] [address] Care Team Providers Care Cow Rider Name Role Phone Pallavi Quesada BEVELLER OPERATOR Primary Care Provider [phone] [phone] Reason for Visit * Reason Comments Medication Problem Encounter Details Date Type Department Care Team (Late st Contact Info) Description 02/16/2021 Refill [facility] SCHEDULING [address] [place], [place] [phone] Liam Ag MD [address] [place] [address] Medication Problem Social History Tobacco [...] on filedocumented in this encounter Care Teams Cow Rider Relationship Specialty Start Date End Date Pallavi Quesada, MARCELLA [address] [place] [address] PCP - General 12/29/20 documented as of this encounter
--- OUTSIDE RECORDS SUMMARY | 2025-08-28 08:58 | XMS_ITS | Encounter Summary ---
Author Organization [facility] and [facility] Address [address] [place] [address] Care Team Providers Care Automatic Profile Shaper Operator Name Role Phone Pallavi Quesada MANAGER INCOME TAX Primary Care Provider [phone] [phone] Reason for Visit * Reason Comments Appointment Encounter Details Date Type Department Care Team (Late st Contact Info) Description 12/28/2020 Telephone [facility] [address] [address] Referring, No Appointment Social History [...] on filedocumented in this encounter Care Teams Automatic Profile Shaper Operator Relationship Specialty Start Date End Date Pallavi Quesada, MARCELLA [address] [place] [phone] PCP - General 12/29/20 documented as of this encounter
--- OUTSIDE RECORDS SUMMARY | 2025-08-28 08:58 | XMS_ITS | Clinical Summary ---
Author Organization [facility] Address [address] [place] [address] Care Team Providers Care Railcar Foreman Name Role Phone Unavailable Primary Care Provider [...]
--- OUTSIDE RECORDS SUMMARY | 2025-08-28 08:58 | XMS_ITS | Clinical Summary ---
Author Organization [address] Address [address] [place] [address] Care Team Providers Care Quality Intern Name Role Phone Pallavi Quesada NP Primary Care Provider [phone] [phone] Allergies Active Allergy Reactions Criticality Noted Date [...] patient's age to complete this topic Insurance [facility] on file MEDICARE [facility] on file MEDICARE [facility] on file MEDICARE Care Teams Quality Intern Relationship Specialty Start Date End Date Pallavi Quesada NP [address] [place] [phone] PCP - General 12/29/20
--- OUTSIDE RECORDS SUMMARY | 2025-08-28 08:58 | XMS_ITS | Clinical Summary ---
Author Organization [facility] [employer] Address [address] [address] Phone Care Team Providers Care Escalator Operator Name Role Phone Barbara Child MD Primary Care Provider [phone] Allergies Active Allergy Reactions Criticality Noted Date [...] 03/26/2025 3:18 PM EDT Plan of Treatment Health Maintenance Due Date Last Done Comments Breast Cancer Screening 1950 Drug Screen 1950 Non-Opioid Controlled Substance Agreement 1950 Cholesterol Screening (Lipid Panel) 08/19/2022 Falls [...] age to complete this topic Insurance MEDICARE [facility] Care Teams Escalator Operator Relationship Specialty Start Date End Date Barbara Child MD [address] [place] [address] PCP - General Internal Medicine 02/04/25
[2025-08-28 15:09] LABS: Appearance Urine Cloudy; Glucose Urine UA Negative (Negative); PH 7.5 (5.0-9.0); Specific Gravity - Urine 1.010 (1.005-1.025)
== END 2025-08-28 08:33 | disposition home or self-care (01) ==
LOC: HO.HAP 08:32
PROVIDERS: Visit Provider Internal Medicine
DX: H90.3 Sensorineural hearing loss, bilateral (principal); Z78.9 Other specified health status
CPT/HCPCS: 81003; 87086; 92593

== ENCOUNTER 2025-09-03 08:01 | Outpatient (AMB) | payer OTHER, SELFPAY ==
--- NOTE | 2025-09-03 08:03 | AM.OFFWIN_ITS ---
Intake Vital Signs 09/03/25 08:04 Height 5 ft 1 in Weight 143 lb BMI 27.0 BP 126/64 Blood Pressure Location Lt brachial Position Sitting Pulse 84 Pulse Source Pulse Oximeter Pulse Oximetry (%) 98 Oxygen Delivery Method Room Air Intake Visit Reasons: EP LT Hip pain, trouble walking Intake Note: Patient presents c/o left hip pain x6 days. Patient Tobacco Use Status: Former Tobacco user Allergies clindamycin (CLINDAMYCIN) Allergy (Severe, Verified 09/03/25 08:07) PURPURA Seasonal Allergies Allergy (Intermediate, Verified 09/03/25 08:07) Congestion cilantro Adverse Reaction (Unknown, Uncoded 09/03/25 08:07) Hives HPI HPI Comments History of Present Illness Details History - The patient is a 75-year-old female pr esenting with pain in her left hip that radiates down her leg. - The symptoms began approximately one w [place] ago without a specific injury, although she notes she was doing tess chi and [place] at the airport around that time. - She has a constant sharp pain in the l eft buttock and into the hip and down the left leg. \ - She states that she can't get comforta ble. - She has pain when she sits and walks. - She denies any pain in her spine and r eports no numbness or tingling. - For pain management, she is unable to take NSAIDs like Advil due to poor kidney function. - She reports not having any pain medica tion at home, including prior prescriptions for gabapentin, tramadol, and cyclobenzaprine (Flexeril). - She states that Flexeril did not provi de much relief in the past, but admits to only taking one tablet instead of the prescribed two or three times a day. - The patient also has a supply of baclo fen at home but has stopped taking it. - Her past medical history is significan t for a hip fracture. - She denies trauma or fall. - She denies saddle anesthesia, numbness , tingling, or incontinence. Physical Exam General: cooperative, healthy appearing and comfortable, patient oriented x3 Head: Normal to inspection, normocephalic/atraumatic Effort & Inspection: Normal respiratory effort and able to speak in complete sentences. Cardiac: RRR, no M/R/G noted. Normal S1 and S2. Respiratory: Clear to auscultation bilaterally. No w/r/r noted. Back/spine: No CVA tenderness bilaterally. Cervical, thoracic and lumbar spine normal to inspection. Cervical ROM normal, no midline spinous tenderness noted. Thoracic ROM normal, lumbar ROM normal. No midline vertebral spinous tenderness noted. No step offs noted. No TTP of the thoracic or lumbar paraspinous or paravertebral muscles. TTP of the left SI joint. DTR are 2+ on the lower extremities noted. Ambulates with a steady gait. Extremities: Straight leg raise test positive on left; Straight leg raise test negative on right; motor strength normal 5/5 bilaterally. Neuro: Sensation intact. Patient was informed and verbally consented to the use of an ambient scribe for clinic note documentation during this visit. [facility] Medical History FH: total knee replacement Surgical History Lipoma of back (12/19/22) H/O gastric bypass History of appendectomy History of urostomy Family History Daughter FHx: mental illness Son Substance abuse Social History Housing: Apartment Alcohol intake: current Alcohol intake frequency: a few times a week Alcohol type: wine Patient Tobacco Use Status: Former Tobacco user e-Cigarette/Vaping Use: Never Used Second Hand Smoke Exposure: No service: No Current occupational status: employed and retired Current occupational exposures/hazards: No Cognitive needs: No Hearing needs: No Vision needs: No Review of Systems Const All systems reviewed & are unremarkable except as noted in HPI and below Physical Exam Vital Signs: Last Vital Signs Pulse 84 09/03/25 08:04 BP 126/64 09/03/25 08:04 Pulse Ox 98 09/03/25 08:04 Oxygen Delivery Method Room Air 09/03/25 08:04 BMI result Body Mass Index 27.0 Assessment & Plan Assessment & Plan (1) Left sided sciatica: Code(s): M54.32 - Sciatica, left side Plan Most likely msk pain vs sciatica vs arthritis vs bursitis Plan - Prescribed oral prednisone to manage inflammation. - Prescribed a refill of cyclobenzaprine (Flexeril), with instructions that the dose can be increased to 10 mg (two 5 mg tablets) up to three times a day for better efficacy. - Recommended supportive care with alternating use of a heating pad and ice packs. - A referral for physical therapy was placed, which the patient can activate if symptoms do not improve over the weekend. - Advised to follow-up with her primary care physician, Barbara Child, if symptoms do not improve in the next couple of days Orders: Orders PT Evaluation and Treatment Today M54.32 - Sciatica, left side Medications: New prednisone 40 mg (2 x 20 mg) PO DAILY 10 tabs 0RF 5 days Changed From cyclobenzaprine 5 mg PO BID PRN muscle spasm To cyclobenzaprine 5 mg PO BID PRN 21 tabs 0RF muscle spasm 7 days Coding Level of Care Code Est Pt Level 4 (12973) Diagnoses Left sided sciatica M54.32
[2025-09-03 08:04] VITALS: BP 126/64; PULSE 84; O2SAT 98; BMI 27.0
--- OUTSIDE RECORDS SUMMARY | 2025-09-03 08:06 | XMS_ITS | Clinical Summary ---
Author Organization [facility] Prior to 02/08/25 Address [address] [place] [address] Care Team Providers Care Bioinformatics Scientist Name Role Phone Unavailable Primary Care Provider [...]
--- OUTSIDE RECORDS SUMMARY | 2025-09-03 08:06 | XMS_ITS | Encounter Summary ---
Author Organization [facility] Address [address] [facility] [address] [place] [address] Phone Care Team Providers Care Barge Worker Name Role Phone Alina Lim MD, MPH Unavailable [phone] Willian Calero MD Primary Care Provider [phone]- [phone] Encounter Details Date Type Department Care Team (Late st Contact Info) Description 04/25/2024 Procedure Pass [facility], Ct Scan - [address] [address] Social History Tobacco Use Types Packs/Day Years [...] Info) Description 10/10/2025 11:30 AM EST Follow-Up [facility] Urology [address] [place] [address] Spencer Sidhu MD [address] [place] [address] [email or web address] documented as of this encounter Visit Diagnoses Not on filedocumented in this encounter Care Teams Barge Worker Relationship Specialty Start Date End Date Willian Calero MD [address] [place] [address] PCP - General Internal Medicine 08/28/23 ArnettAlina MD, MPH [address] [place] [phone] [email or web address] General Surgery 08/25/23 documented as of this encounter Additional Source Comments The information contained in this document represents components of the legal health record. It is not the complete legal health record.[facility]
--- OUTSIDE RECORDS SUMMARY | 2025-09-03 08:06 | XMS_ITS | Encounter Summary ---
Author Organization [facility] Address [address] [facility] [address] [place] [address] Phone Care Team Providers Care Flyer Maker Name Role Phone Alina Lim MD, MPH Unavailable [phone] Willian Calero MD Primary Care Provider [phone]- [phone] Reason for Referral * MRI/CAT Scan - New Request Specialty Diagnoses / Procedures Referred By Hafsa smith Referred To Contact Radiology Diagnoses Personal history of colon cancer Procedures CT Chest Alina Lim MD, MPH Phone: tel: fax: mailto:[email or web address] Referral ID Status Reason Start Date Expiration Date V isits Requested Visits Authorized [id number] New Request 05/20/2025 1 1 * MRI/CAT Scan - New Request Specialty Diagnoses / Procedures Referred By Hafsa smith Referred To Contact Radiology Diagnoses Personal history of colon cancer Procedures CT Abdomen/Pelvis Alina Lim MD, MPH Phone: tel: fax: mailto:[email or web address] Referral ID Status Reason Start Date Expiration Date V isits Requested Visits Authorized [id number] New Request 05/20/2025 1 1 Encounter Details Date Type Department Care Team (Late st Contact Info) Description 05/20/2025 Telephone [facility] Surgery [address] [place] [address] Alina Lim MD, MPH [address] [place] [phone] [email or web address] [...] Upcoming Encounters Date Type Department Care Team ([facility] Contact Info) Description 10/10/2025 11:30 AM EST Follow-Up [facility] Urology [address] [place] [address] Spencer Sidhu MD [address] [place] [address] [email or web address] Scheduled Orders Name Type Priority Associated Diagnoses [...] intestine documented in this encounter Care Teams Flyer Maker Relationship Specialty Start Date End Date Willian Calero MD [address] [place] [address] PCP - General Internal Medicine 08/28/23 Alina Lim MD, MPH [address] [place] [address] [email or web address] General Surgery 08/25/23 documented as of this encounter Additional Source Comments The information contained in this document represents components of the legal health record. It is not the complete legal health record.[facility]
--- OUTSIDE RECORDS SUMMARY | 2025-09-03 08:06 | XMS_ITS | Clinical Summary ---
Author Organization [facility] Address [address] [place] [address] Care Team Providers Care Peg Driver Name Role Phone None, Pcp MD Primary [...] on file Medical Devices Implanted Type Area Can Sterilizer Device Identifier Shelf Expiration Date Model / Serial / Lot Stent Single J 7 X 90 ([id number]) - [id number] Implanted:Qty: 1 on 05/24/2016 by Spencer Sidhu MD at [facility] Stent N/A: Ureter [employer] 11/25/2020 [id number] / / [id number] Description:bilateral ureter s Insurance Advance Directives Documents on File Type Date Recorded Patient Life Enrichment Assistant Expl anation Health Care Proxy 05/10/2016 12:41 PM EBER slaughter Care Proxy/Advance Directive * Full Code (Latest Code Status on File) Date Activated Date Inactivated Comments 05/24/2016 9:14 PM 2016 4:16 PM Healthcare Agents on File Name Relationship Healthcare Agent Relationshi p Communication Harsha Denise Spouse Health Care Agent Tiki Denise Daughter Health Care Agent - Medina rnate Care Teams Peg Driver Relationship Specialty Start Date End Date None, PcpMD PCP - General 09/21/18
--- OUTSIDE RECORDS SUMMARY | 2025-09-03 08:06 | XMS_ITS | Clinical Summary ---
Author Organization [facility] Address [address] [place] [address] Phone Care Team Providers Care Magistrate Assistant Name Role Phone Ailna Lim MD, MPH Unavailable [phone] Willian Calero MD Primary Care Provider [phone]- [phone] Allergies Active Allergy Reactions Criticality Noted Date [...] Department Care Team Description 08/20/2025 Orders Only [facility] Urology [address] [place] [address] Terri Brink MA Carcinoma of bladder (Primary Dx) 07/20/2025 Refill [facility] Urology [address] [place] [address] Spencer Sidhu MD Medication Refill from Last [...] Description 10/10/2025 11:30 AM EST Follow-Up [facility] Urology [address] [place] [address] Spencer Sidhu MD [address] [place] [address] [email or web address] Maintenance Due Date Last Done Comments [...] Devices Not on file Insurance MEDICARE [facility] PL[facility] PPO Care Teams Magistrate Assistant Relationship Specialty Start Date End Date Willian Calero MD [address] [place] [phone] PCP - General Internal Medicine 08/28/23 Alina Lim MD, MPH [address] [place] [phone] [email or web address] General Surgery 08/25/23 Additional Source Comments The information contained in this document represents components of the legal health record. It is not the complete legal health record.[facility]
--- OUTSIDE RECORDS SUMMARY | 2025-09-03 08:06 | XMS_ITS | Clinical Summary ---
Author Organization [facility] Address [address] [place] [address] Phone Care Team Providers Care Mortgage Broker Name Role Phone Barbara Child MD Primary Care Provider [phone] Allergies Active Allergy Reactions Criticality Noted Date [...] age to complete this topic Insurance MEDICARE [facility] Care Teams Mortgage Broker Relationship Specialty Start Date End Date Barbara Child MD [address] [place] [address] PCP - General Internal Medicine 02/04/25
--- OUTSIDE RECORDS SUMMARY | 2025-09-03 08:06 | XMS_ITS | Clinical Summary ---
Author Organization [address] Address [address] [place] [address] Care Team Providers Care Optic Fibre Drawer Name Role Phone Pallavi Quesada NP Primary Care Provider [phone] Allergies Active Allergy Reactions Criticality Noted Date [...] patient's age to complete this topic Insurance [facility] on file MEDICARE [facility] on file MEDICARE [facility] on file MEDICARE Care Teams Optic Fibre Drawer Relationship Specialty Start Date End Date Pallavi Quesada NP [address] [place] [phone] PCP - General 12/29/20
--- OUTSIDE RECORDS SUMMARY | 2025-09-03 08:06 | XMS_ITS | Encounter Summary ---
Author Organization [facility] Address [address] [place] [address] Care Team Providers Care Tubing Oiler Name Role Phone Pallavi Quesada GEM CARVER Primary Care Provider [phone] Reason for Visit * Reason Comments Appointment Encounter Details Date Type Department Care Team (Late st Contact Info) Description 12/28/2020 Telephone [facility] [address] [address] Referring, No Appointment Social History [...] on filedocumented in this encounter Care Teams Tubing Oiler Relationship Specialty Start Date End Date Pallavi Quesada, MARCELLA [address] [place] [phone] PCP - General 12/29/20 documented as of this encounter
--- OUTSIDE RECORDS SUMMARY | 2025-09-03 08:06 | XMS_ITS | Encounter Summary ---
Author Organization [facility] Address [address] [facility] [address] [place] [address] Phone Care Team Providers Care Dot Net Developer Name Role Phone Alina Lim MD, MPH Unavailable [phone] Willian Calero MD Primary Care Provider [phone] Encounter Details Date Type Department Care Team (Late st Contact Info) Description 04/25/2024 Procedure Pass [facility], Ct Scan - [address] [address] Social History Tobacco Use Types Packs/Day Years [...] AM EST Follow-Up [facility] Urology [address] [place] [address] Spencer Sidhu MD [address] [place] [address] [email or web address] documented as of this encounter Visit Diagnoses Not on filedocumented in this encounter Care Teams Dot Net Developer Relationship Specialty Start Date End Date Willian Calero MD [address] [place] [address] PCP - General Internal Medicine 08/28/23 TylerAlina MD, MPH [address] [place] [phone] [email or web address] General Surgery 08/25/23 documented as of this encounter Additional Source Comments The information contained in this document represents components of the legal health record. It is not the complete legal health record.[facility]
--- OUTSIDE RECORDS SUMMARY | 2025-09-03 08:06 | XMS_ITS | Encounter Summary ---
Author Organization [facility] Address [address] [place] [phone] Care Team Providers Care Senior Administrator Support Name Role Phone Pallavi Quesada WAREHOUSE PROCESSOR Primary Care Provider [phone] Reason for Visit * Reason Comments Medication Problem Encounter Details Date Type Department Care Team (Late st Contact Info) Description 02/16/2021 Refill [facility] [address] [place], [place] [address] Liam Ag MD [address] [place] [address] Medication Problem Social History Tobacco [...] on filedocumented in this encounter Care Teams Senior Administrator Support Relationship Specialty Start Date End Date Pallavi Quesada, MARCELLA [address] [place] [address] PCP - General 12/29/20 documented as of this encounter
--- OUTSIDE RECORDS SUMMARY | 2025-09-03 08:06 | XMS_ITS | Encounter Summary ---
Author Organization [facility] Address [address] [place] [phone] Care Team Providers Care General Surgery Physician Assistant Name Role Phone Pallavi Quesada TICKET CHOPPER ASSEMBLER Primary Care Provider [phone] Encounter Details Date Type Department Care Team (Late st Contact Info) Description 01/25/2021 Telephone [facility] at [address] [place] [phone] Liam Ag MD [address] [place] [phone] Social History Tobacco Use Types Packs/Day [...] is requesting pre-op paperwork be faxed to [phone]. Any questions call Oksana at [phone]. Thank you. documented in this encounter Plan of Treatment Not on file documented as of this encounter Visit Diagnoses Not on filedocumented in this encounter Care Teams General Surgery Physician Assistant Relationship Specialty Start Date End Date Pallavi Quesada NP [address] [address] [place] [address] PCP - General 12/29/20 documented as of this encounter
== END 2025-09-03 09:09 | disposition home or self-care (01) ==
PROVIDERS: PCP Internal Medicine; Visit Provider Physician Assistant Medical
DX: M54.32 Sciatica, left side (principal)